=== PATIENT | female | born 1970 | race Two or more races ===

== ENCOUNTER 2021-07-10 11:17 | Outpatient (REF) | payer MEDICAID, SELFPAY ==
--- NOTE | ~2021-07-10 | US_ITS ---
EXAMINATION: US RETROPERITONEAL LIMITED (RENAL ONLY) CLINICAL INFORMATION: History of kidney stone. Left flank pain. COMPARISON: None TECHNIQUE: Real-time imaging of the kidneys. FINDINGS: RIGHT KIDNEY: 10.1 x 4.3 x 6.0 cm (SAG x AP x TRV). The kidney is normal in size, contour, and echogenicity. Renal cortical thickness is normal. No calculi or focal parenchymal lesions. No hydronephrosis. LEFT KIDNEY: 10.0 x 5.4 x 5.2 cm (SAG x AP x TRV). The kidney is normal in size, contour, and echogenicity. Renal cortical thickness is normal. No focal parenchymal lesions or hydronephrosis. Lower pole calculi are identified measuring 0.2 cm. There are 2 stones seen. US/US renal BI IMPRESSION: No hydronephrosis. 0.2 cm left lower pole renal calculi.
== END 2021-07-10 11:18 | disposition home or self-care (01) ==
LOC: HO.HMGCX 11:17
PROVIDERS: PCP Nurse Practitioner Family; Visit Provider Nurse Practitioner Family
DX: N20.0 Calculus of kidney (principal)
CPT/HCPCS: 76775

== ENCOUNTER 2021-08-08 09:45 | Outpatient (REF) | payer MEDICAID, SELFPAY | END 2021-08-08 09:46 | disposition home or self-care (01) | LOC: HO.MAMMO 09:45 | PROVIDERS: Visit Provider Nurse Practitioner Family | DX: Z13.89 Encounter for screening for other disorder (principal) ==

== ENCOUNTER → 2021-08-11 09:16 | Outpatient (REF) | payer MEDICAID, SELFPAY ==
--- NOTE | 2021-08-11 09:30 | CA_ITS ---
Transthoracic Echocardiogram Patient (Last, First, Middle): Nazia Corona, Gender: Female Date of : 1970 Age: 50 Procedure Date: 08/11/2021 Procedure Type: Transthoracic Echocardiogram Location: OP Height: 142.24 cm Weight: 62.6 kg BSA: 1.52 m2 Heart Rate: bpm BP: 152 / 100 mmHg Culturist: VH/CP Referring MD: Jenny Guajardo Symptoms: I10 HTN S06.5X9A TRAUM SUBDR HEM W LOC ,Z98.890 OTHER POST P Study Quality: Fair ECG Rhythm: Sinus Conclusions: - The left ventricular systolic function is mildly decreased. The calculated ejection fraction is 47% by biplane method. - No obvious valvular pathology seen on this study. Findings Left Ventricle Normal left ventricular cavity size. There is normal left ventricular wall thickness. The left ventricular systolic function is mildly decreased. The calculated ejection fraction is 47% by biplane method. There is mild global hypokinesis. E/E prime ratio is <8, consistent with normal filling pressures. Evidence suggests grade I (mild) diastolic dysfunction. Right Ventricle Normal right ventricular cavity size. There is low normal right ventricular systolic function. TAPSE 1.7cm. Atria Both atria are normal in size. Aortic Valve There is a normal trileaflet aortic valve. There is no aortic valve stenosis. There is trace (trivial) aortic valve regurgitation. Mitral Valve The mitral valve appears normal. There is no mitral valve stenosis. Trace to mild regurgitation Pulmonic Valve The pulmonic valve was not well visualized. Tricuspid Valve Normal tricuspid valve structure. There is trace tricuspid valve regurgitation. The pulmonary artery systolic pressure is normal. Great Vessels The aortic annulus, sinuses of valsalva, asc aorta, and aortic arch are normal in size. Venous The inferior vena cava is normal in size and collapses greater than 50% with inspiration. Pericardium/Pleural There is no evidence of pericardial effusion. Prior Study Comparison No prior study available for comparison. Recommendations, Care & Conclusions No obvious valvular pathology seen on this study. Measurements 2D Linear Measurements IVSd: 0.86 0.6-0.9/0.6-1.0 cm LVIDd: 4.99 3.9-5.3/4.2-5.9 cm LVIDd Index: 3.28 2.4-3.2/2.2-3.1 cm/m2 LVIDs: 3.73 2.0-3.6 cm LVPWd: 0.86 0.7-1.1 cm Ao Root: 2.80 2.1-3.5 cm LA Diam: 3.50 2.7-3.8/3.0-4.0 cm LAIDs Index: 2.30 1.5-2.3 cm/m2 LV Mass: 184.83 67-162/88-224 g LV Mass Index: 121.60 43-95/49-115 g/m2 LVOT Diam: 2.00 3.0+(-)1.3 cm 2D Systolic Function EF 4C: 46.30 >55% EF 2C: 48.30 >55% EF BiP: 46.70 >55% Mitral Valve MV Pk E: 0.59 MV PK A: 0.63 MV Decel Time: 266.00 E/A: 0.90 E'Lateral: 8.27 E'Medial: 5.44 E/E' Med: 10.90 E/E' Lat: 7.10 PHT: 78.00 MVA PHT: 2.82 Decel [place]: 2.23 Aortic Valve AoV Pk Jovon: 1.35 AoV Mn Jovon: 1.01 AoV VTI: 0.31 AoV Pk Grad: 7.00 Aov Mn Grad: 4.00 FAUSTO Cont.VTI: 1.59 LVOT LVOT Pk Jovon: 0.73 LVOT Mn Jovon: 0.51 LVOT VTI: 0.16 LVOT Pk Grad: 2.00 LVOT Mn Grad: 1.00 LVOT Diam: 2.00 LVOT Area: 3.14 Diastolic Function MV Pk E: 0.59 MV Pk A: 0.63 E/A: 0.90 E'Medial: 5.44 E/E' Med: 10.90 E' Laterial: 8.27 E/E' Lat: 7.10 Right Ventricle TAPSE (mm): 17.00 TVS' Jovon: 10.00 Tricuspid Valve TR Pk Jovon: 1.14 TR Pk Grad: 5.00 RA Press: 3.00 RVSP: 8.00 Great Vessels Aorta Ao Root-2D: 2.80 2.0-3.7 cm Ao Asc: 3.10 2.1-3.4 cm Ao Arch: 3.00 Updated in Other Vendor System with Status of Final Justin Maddox MD electronically signed on 08/12/2021 11:40:59 AM with status of Final
== END ==
LOC: HO.CARD 09:16
PROVIDERS: Visit Provider Nurse Practitioner Family
DX: I10 Essential (primary) hypertension (principal); S06.5X9D Traumatic subdural hemorrhage with loss of consciousness of unspecified duration, subsequent encounter; Z98.890 Other specified postprocedural states
CPT/HCPCS: 93306

== ENCOUNTER 2021-09-10 09:04 | Outpatient (REF) | payer MEDICAID, SELFPAY ==
--- NOTE | ~2021-09-10 | MM_ITS ---
EXAMINATION: MM SCREENING DIGITAL BREAST TOMOSYNTHESIS, BILATERAL CLINICAL INFORMATION: Screening. Asymptomatic. The lifetime risk of breast cancer based on the Tyrer-Cuzick Model is 8%. COMPARISON: Outside mammography: 07/04/2020, 11/11/2018, 06/08/2017, 05/30/2017 ([facility], [place], [place]). TECHNIQUE: Digital breast tomosynthesis is performed in both the craniocaudal and mediolateral oblique views along with computer-aided detection (CAD). Synthesized 2D images are generated from the tomosynthesis. FINDINGS: There are scattered areas of fibroglandular density (ACR BI-RADS breast composition Category b). There are no significant masses, abnormal calcifications, or other abnormalities. There are scattered calcifications in each breast. There are stable grouped calcifications retroareolar upper outer right breast and mid right breast upper outer quadrants, respectively. The axilla and skin contours are unremarkable. MM/MM tomosynthesis screening BI IMPRESSION: No significant changes from prior outside exams. ASSESSMENT: BI-RADS 2: Benign RECOMMENDATION: Routine annual mammography screening. This patient's information was entered into a reminder system with a target due date for their next mammogram.
== END 2021-09-10 09:05 | disposition home or self-care (01) ==
LOC: HO.MAMMO 09:04
PROVIDERS: Visit Provider Nurse Practitioner Family
DX: Z12.31 Encounter for screening mammogram for malignant neoplasm of breast (principal)
CPT/HCPCS: 77063; 77067

== ENCOUNTER → 2022-03-19 09:08 | Outpatient (BNVA) | payer MEDICAID, SELFPAY | PROVIDERS: PCP Nurse Practitioner Family; Visit Provider Orthopaedic Surgery | DX: R20.0 Anesthesia of skin (principal); R20.2 Paresthesia of skin | CPT/HCPCS: 99202 ==

== ENCOUNTER 2022-07-08 12:51 | Outpatient (REF) | payer MEDICAID, SELFPAY ==
--- NOTE | 2022-07-08 09:00 | EMG_ITS ---
Bilateral median and ulnar motor and sensory studies were performed. Bilateral radial and sensory studies were performed and paraspinal muscles were tested with a needle. 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 MD GURJIT Winter/JASMIN / [id number]
== END 2022-07-08 12:52 | disposition home or self-care (01) ==
LOC: HO.NEURO 12:51
PROVIDERS: Visit Provider Orthopaedic Surgery
DX: R20.0 Anesthesia of skin (principal)
CPT/HCPCS: 95886; 95911

== ENCOUNTER 2022-08-20 07:21 | Outpatient (REF) | payer MEDICAID, SELFPAY ==
--- NOTE | ~2022-08-20 | MM_ITS ---
EXAMINATION: MM DIAGNOSTIC DIGITAL BREAST TOMOSYNTHESIS, BILATERAL US BREAST LIMITED, LEFT CLINICAL INFORMATION: Left breast lump 12-o'clock position. The lifetime risk of breast cancer based on the Tyrer-Cuzick Model is 7.1%. COMPARISON: Mammography: 09/10/2021 and studies dating back to 10/02/2015. TECHNIQUE: Digital breast tomosynthesis was performed in both the craniocaudal and mediolateral oblique views along with computer-aided detection (CAD). Synthesized 2D images were generated from the tomosynthesis. Targeted left breast ultrasound. FINDINGS: The breasts are heterogeneously dense, which may obscure small masses (ACR BI-RADS breast composition Category c). MAMMOGRAPHY: There are no significant masses, abnormal calcifications, or other abnormalities. ULTRASOUND: Targeted ultrasound examination in the 12-o'clock position of the left breast in the region of palpable abnormality demonstrates a homogeneously echogenic region without adjacent edematous change which may represent lipoma or possibly sequela of trauma. No suspicious mass or distal sound shadowing appreciated. MM/MM tomosynthesis diagnostic BI IMPRESSION: 1. No significant mammographic finding. 2. Palpable abnormality of the left breast corresponds to a benign-appearing region as described. ASSESSMENT: BI-RADS 2: Benign RECOMMENDATION: Clinical management and routine mammography. Results were discussed with the patient at time of the visit. This patient's information was entered into a reminder system with a target due date for their next mammogram.
== END 2022-08-20 07:22 | disposition home or self-care (01) ==
LOC: HO.MAMMO 07:21
PROVIDERS: PCP Internal Medicine; Visit Provider Advanced Practice Midwife
DX: N64.4 Mastodynia (principal); N63.42 Unspecified lump in left breast, subareolar
CPT/HCPCS: 76642; 77062; 77066

== ENCOUNTER → 2022-12-01 10:10 | Outpatient (BNVA) | payer MEDICAID, SELFPAY | PROVIDERS: PCP Internal Medicine; Visit Provider Physician Assistant | DX: G56.01 Carpal tunnel syndrome, right upper limb (principal) | CPT/HCPCS: 99212 ==

== ENCOUNTER 2022-12-20 07:37 | Day surgery (SDC) | payer MEDICAID, SELFPAY ==
[2022-12-20 07:47] VITALS: BMI 31.4
--- NOTE | 2022-12-20 10:01 | MHC.SHP ---
Pre-Procedural Eval Section A Date of Service: 12/20/22 The patient is an INPATIENT: No Changes since office visit: No Cold of Flu in the past 2 weeks, No New Medical Problems, No Changes in Medication and No Patient answered all questions The History & Physical has been completed within 30 days and I have reviewed it.: Yes Section B Chief Complaint: Carpal tunnel syndrome, right upper limb Allergies: Allergies Allergy/AdvReac Type Severity Reaction Status Date / Time No Known Allergies Allergy Verified 12/01/22 10:15 Plan I have reviewed the history and physical and performed a pertinent physical examination on my patient. No changes have occurred unless specified. Time Spent With Patient Time: Total time managing care of this patient today ____ minutes.
--- NOTE | 2022-12-20 10:02 | W.PM.OPN ---
Operative Note Operative Note Date of Service: 12/20/22 Narrative: Preop diagnosis: 1. Right Carpal tunnel syndrome Postop diagnosis: same Procedure: 1. Right Carpal tunnel release Surgeon: Sana Potter MD Anesthesia: local block using 1% lidocaine with epinephrine Findings: Thickened transverse carpal ligament. EBL: Less than 5 mL Specimens: None Complications: None Disposition: Brought to recovery room in stable condition Plan: Follow-up for 10-14 days for wound check and suture removal Indications: The patient is 52 years old, with right carpal tunnel syndrome that has been unresponsive to nonoperative management. The risks and benefits of operative treatment including but not limited to risk of damage to blood vessels, nerves, tendons, infection, persistent pain, persistent symptoms, or possible need for additional surgery were discussed with the patient and the patient wishes to proceed with surgery. Procedure: Once consent was obtained a local block was performed using a combination of 1% lidocaine with epinephrine. The patient was then brought back to the operating suite and placed on the operative table in supine position. The right upper extremity was prepped and draped in a standard surgical fashion. Once assured that we had a good block, a 2.0 cm longitudinal incision was made centered over the carpal tunnel. The incision was made through the skin to the subcutaneous tissues using a #15 blade. Dissection was made down to the level of the transverse carpal ligament with care being taken to protect the palmar cutaneous nerve. Once the transverse carpal ligament was clearly visualized, a longitudinal incision was made in the transverse carpal ligament 1st using a #15 blade, then using tenotomy scissors under direct visualization. Care was taken to look for and protect the motor branch of the median nerve when seen in this area. Once satisfied with our carpal tunnel release the wound was copiously irrigated with normal saline and hemostasis was obtained with a brief period of local pressure. The skin edges were reapproximated with some 5.0 nylon suture material and a sterile dressing was applied. The patient appears to have tolerated the procedure well and with no complications. All digits were well vascularized at the conclusion of the case.
[2022-12-20 10:20] VITALS: BP 142/82; PULSE 78; RESP 16; O2SAT 97
== END 2022-12-20 10:30 | disposition home or self-care (01) ==
PROVIDERS: Visit Provider Orthopaedic Surgery
PROC: (CPT 64721; principal; 2022-12-20 09:00)
DX: G56.01 Carpal tunnel syndrome, right upper limb (principal)
CPT/HCPCS: 64721; J0171; J2795

== ENCOUNTER → 2022-12-21 14:58 | Outpatient (BNVA) | payer MEDICAID, SELFPAY | PROVIDERS: Visit Provider Nurse Practitioner Family | DX: N20.0 Calculus of kidney (principal) | CPT/HCPCS: 99202 ==

== ENCOUNTER 2023-01-04 13:30 | Outpatient (REF) | payer MEDICAID, SELFPAY ==
--- NOTE | ~2023-01-04 | US_ITS ---
EXAMINATION: US RETROPERITONEAL LIMITED (RENAL ONLY) CLINICAL INFORMATION: Calculus of kidney. COMPARISON: Renal ultrasound 07/10/2021. TECHNIQUE: Real-time imaging of the kidneys. FINDINGS: RIGHT KIDNEY: 10.5 x 5.0 x 6.3 cm (SAG x AP x TRV). The kidney is normal in size, contour, and echogenicity. Renal cortical thickness is normal. No calculi or focal parenchymal lesions. No hydronephrosis. LEFT KIDNEY: 10.3 x 5.7 x 5.0 cm (SAG x AP x TRV). The kidney is normal in size, contour, and echogenicity. Renal cortical thickness is normal. No focal parenchymal lesions or hydronephrosis. 5 mm nonobstructing midpole renal stone from prior and 4 mm nonobstructing lower pole renal stone previously 2 mm. US/US renal BI IMPRESSION: Nonobstructing left renal stones increased in size and number measuring up to 5 mm.
== END 2023-01-04 13:31 | disposition home or self-care (01) ==
LOC: HO.US 13:30
PROVIDERS: PCP Registered Nurse; Visit Provider Nurse Practitioner Family
DX: N20.0 Calculus of kidney (principal)
CPT/HCPCS: 76775; 99212

== ENCOUNTER → 2023-01-31 11:41 | Outpatient (BNVA) | payer MEDICAID, SELFPAY | PROVIDERS: PCP Registered Nurse; Visit Provider Nurse Practitioner Family ==

== ENCOUNTER → 2023-03-18 10:57 | Outpatient (BNVA) | payer MEDICAID, SELFPAY | PROVIDERS: Visit Provider Orthopaedic Surgery | DX: G56.02 Carpal tunnel syndrome, left upper limb (principal) | CPT/HCPCS: 99212 ==

== ENCOUNTER 2023-03-24 07:53 | Day surgery (SDC) | payer MEDICAID, SELFPAY ==
[2023-03-24 08:19] VITALS: BP 142/88; PULSE 82; RESP 20; TEMP 36.6; O2SAT 97
[2023-03-24 08:22] VITALS: BMI 32.5
[2023-03-24 11:21] VITALS: BP 148/90; PULSE 74; RESP 18; O2SAT 97
[2023-03-24 11:31] VITALS: BP 148/90; PULSE 74; RESP 18; O2SAT 97
--- NOTE | 2023-03-24 11:36 | MHC.SHP ---
Pre-Procedural Eval Section A Date of Service: 03/24/23 The patient is an INPATIENT: No Changes since office visit: No Cold of Flu in the past 2 weeks, No New Medical Problems, No Changes in Medication and No Patient answered all questions The History & Physical has been completed within 30 days and I have reviewed it.: Yes Section B Chief Complaint: Carpal tunnel syndrome, left upper limb Allergies: Allergies Allergy/AdvReac Type Severity Reaction Status Date / Time No Known Allergies Allergy Verified 03/18/23 11:08 Plan I have reviewed the history and physical and performed a pertinent physical examination on my patient. No changes have occurred unless specified. Time Spent With Patient Time: Total time managing care of this patient today ____ minutes.
--- NOTE | 2023-03-24 11:36 | W.PM.OPN ---
Operative Note Operative Note Date of Service: 03/24/23 Narrative: Preop diagnosis: 1. Left Carpal tunnel syndrome Postop diagnosis: same Procedure: 1. left Carpal tunnel release Surgeon: Sana Potter MD Anesthesia: local block using 1% lidocaine with epinephrine Findings: Thickened transverse carpal ligament. EBL: Less than 5 mL Specimens: None Complications: None Disposition: Brought to recovery room in stable condition Plan: Follow-up for 10-14 days for wound check and suture removal Indications: The patient is 52 years old, with left carpal tunnel syndrome that has been unresponsive to nonoperative management. The risks and benefits of operative treatment including but not limited to risk of damage to blood vessels, nerves, tendons, infection, persistent pain, persistent symptoms, or possible need for additional surgery were discussed with the patient and the patient wishes to proceed with surgery. Procedure: Once consent was obtained a local block was performed using a combination of 1% lidocaine with epinephrine. The patient was then brought back to the operating suite and placed on the operative table in supine position. The left upper extremity was prepped and draped in a standard surgical fashion. Once assured that we had a good block, a 2.0 cm longitudinal incision was made centered over the carpal tunnel. The incision was made through the skin to the subcutaneous tissues using a #15 blade. Dissection was made down to the level of the transverse carpal ligament with care being taken to protect the palmar cutaneous nerve. Once the transverse carpal ligament was clearly visualized, a longitudinal incision was made in the transverse carpal ligament 1st using a #15 blade, then using tenotomy scissors under direct visualization. Care was taken to look for and protect the motor branch of the median nerve when seen in this area. Once satisfied with our carpal tunnel release the wound was copiously irrigated with normal saline and hemostasis was obtained with a brief period of local pressure. The skin edges were reapproximated with some 5.0 nylon suture material and a sterile dressing was applied. The patient appears to have tolerated the procedure well and with no complications. All digits were well vascularized at the conclusion of the case.
== END 2023-03-24 11:39 | disposition home or self-care (01) ==
PROVIDERS: PCP Registered Nurse; Visit Provider Orthopaedic Surgery
PROC: (CPT 64721; principal; 2023-03-24 09:40)
DX: G56.02 Carpal tunnel syndrome, left upper limb (principal); R20.0 Anesthesia of skin; I10 Essential (primary) hypertension
CPT/HCPCS: 64721; J0171

== ENCOUNTER → 2023-03-24 07:53 | Outpatient (BNV) | payer MEDICAID, SELFPAY | PROVIDERS: PCP Registered Nurse; Visit Provider Orthopaedic Surgery | DX: G56.02 Carpal tunnel syndrome, left upper limb (principal) | CPT/HCPCS: 64721 ==

== ENCOUNTER 2023-04-05 12:06 | Outpatient (AMB) | payer MEDICAID, SELFPAY ==
--- NOTE | 2023-04-05 12:08 | A.OFFVIS_ITS ---
Intake Vital Signs 04/05/23 12:09 Height 4 ft 8 in Weight 145 lb BMI 32.5 Intake Visit Reasons: PO LT CTR 03/24/23AR Intake Note: Nazia 52 yr old right hand dominant female presents today for a post operative left CTR, 03/24/23 AR. Patient reports numbness has improved, states able to sleep at night. She has itchiness near incision. Allergies No Known Allergies Allergy (Verified 04/05/23 12:12) HPI PO LT CTR 03/24/23AR HPI Details Nazia is a 52 year old right hand dominant Chinese speaking woman who presents S/P left carpal tunnel release, DOS: 03/24/23. She says she is doing well and her sensation has improved. 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 Sutures removed and Steri-Strips applied She can make a fist and extend all her digits Sensation is intact to the tips of all digits Cap refill is brisk Psych Appearance: grossly normal Affect: normal affect Attitude: cooperative Assessment & Plan Assessment & Plan (1) Carpal tunnel syndrome of left wrist: Code(s): G56.02 - Carpal tunnel syndrome, left upper limb Plan Assessment & Plan: 1. Left Carpal tunnel syndrome, S/P release Pre-operatively with dense numbness Now with normal sensation and good resolution of her nighttime symptoms The patient appears to be doing well post-operatively I educated her about the post-operative course I discussed activity modifications, she is to lift nothing heavier than a cellphone for the next two weeks She will perform gentle ROM exercises at home She should avoid any underwater activities for the next 5 days She should gently massage about the incision site to reduce the risk of hypersensitivity She can follow up prn 2. Right Carpal tunnel syndrome, S/P release DOS: 12/20/22 Preoperatively with dense numbness in the median nerve distribution. Postoperatively: Normal sensation Scribed for Sana Potter MD by Rikki Juan, medical case manager, on 04/05/23 at 12:15 PM, EST. Coding Level of Care Code Global (65393) Diagnoses Carpal tunnel syndrome of left wrist G56.02
[2023-04-05 12:09] VITALS: BMI 32.5
== END 2023-04-05 12:14 | disposition home or self-care (01) ==
PROVIDERS: PCP Registered Nurse; Visit Provider Orthopaedic Surgery
DX: G56.02 Carpal tunnel syndrome, left upper limb (principal)
CPT/HCPCS: 99024

== ENCOUNTER → 2023-04-05 12:06 | Outpatient (BNVA) | payer MEDICAID, SELFPAY | PROVIDERS: PCP Registered Nurse; Visit Provider Orthopaedic Surgery ==

== ENCOUNTER 2023-04-20 15:11 | Outpatient (REF) | payer OTHER, SELFPAY ==
--- NOTE | ~2023-04-20 | XR_ITS ---
EXAMINATION: XR ABDOMEN KUB CLINICAL INDICATION: Calculus of kidney COMPARISON: Renal ultrasound 01/10/2023 TECHNIQUE: AP view of the abdomen. FINDINGS: The bowel gas pattern is normal with no evidence of ileus or obstruction. There is a moderate amount of stool within the ascending and transverse colon significantly obscuring the right kidney and the midportion of the left kidney. No renal calcifications are identified. There are a few small calcifications in the left side of the pelvis which likely represent phleboliths. The bones are intact. XR/XR KUB IMPRESSION: 1. No evidence of renal calculus. 2. Moderate amount of stool in the colon obscuring the kidneys.
== END 2023-04-20 15:12 | disposition home or self-care (01) ==
LOC: HO.XRAY 15:11
PROVIDERS: PCP Registered Nurse; Visit Provider Nurse Practitioner Family
DX: N20.0 Calculus of kidney (principal)
CPT/HCPCS: 74018

== ENCOUNTER 2023-05-04 11:57 | Outpatient (AMB) | payer OTHER, SELFPAY ==
--- NOTE | 2023-05-04 12:04 | MHC.OFFVIS ---
Intake Intake Visit Reasons: Discuss surgery/ KUB(set) Intake Note: Patient is present for tele visit follow up Nephrolithiasis/KUB X-ray (imaging 04/20/23) Urology Medications: Vitamin B6 Blood Thinner: none Procedures Analyst Required: Yes Procedures Analyst Name: Radha Allergies No Known Allergies Allergy (Verified 05/04/23 21:42) Medication List - Last Reconciled 05/04/23 by BASILIA Mejia amlodipine 5 mg PO DAILY carvedilol 25 mg PO DAILY hydrochlorothiazide 12.5 mg PO DAILY losartan 100 mg PO DAILY oxycodone-acetaminophen 5-325 mg 1 tab PO Q6H PRN HPI HPI Comments History of Present Illness Details Nazia is a pleasant 52-year-old Bhutanese-speaking patient of Dr. Max. She has a past medical history of hypertension. She is being followed up on today via telehealth. Of note, patient was previously seen approximately 3 months for nephrolithiasis at which time renal ultrasound results were reviewed with the patient and recommendations were made for six-month follow-up however patient has been experiencing left-sided flank pain and a KUB was ordered for further assessment evaluation. These results were reviewed with the patient today. No evidence of renal calculus. Moderate amount of stool in the colon obscuring the kidneys. However renal ultrasound from 02/01 noting right kidney with no lesions, hydronephrosis, or calculi present. Left kidney with nonobstructing left renal stones increased in size and number measuring up to 5 mm. In discussion with the patient today she reports ongoing intermittent left-sided flank pain. She reports pain is intermittent however feels she is experiencing it more often than prior. She reports when experiencing this pain it is sharp and extremely bothersome. She denies urinary urgency, urinary frequency, incontinence, nocturia, hematuria, dysuria, foul smelling urine, changes to urinary stream, fever, and or chills. When asked patient reports she does not drink adequate amount of water daily. Discussed and stressed the importance of drinking adequate amount of fluid daily. Discussed obtaining CT KUB for further assessment evaluation. Patient agreeable. 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 Review of Systems Const All systems reviewed & are unremarkable except as noted in HPI and below Reports as per HPI Eyes Reports no additional complaints ENT Reports no additional complaints Card Reports as per HPI Resp Reports no additional complaints GI Reports no additional complaints Reports as per HPI Musc Reports no additional complaints Neuro Reports as per HPI Psych Reports no additional complaints Endo Reports no additional complaints Jayme/Lymph Reports no additional complaints Aller/Immun Reports no additional complaints Physical Exam Const General: cooperative Orientation/consciousness: patient oriented x3 Resp Effort & Inspection: able to speak in complete sentences Neuro General: patient oriented x3 Psych Speech and movement: Clear speech present Attitude: cooperative Thought process: Normal thought process present Thought content: Normal thought content present Insight: Good insight present (Psych) Judgement: Good judgement present (Psych) Results Reviewed Results Reviewed: Date of Service: 04/20/23 EXAMINATION: XR ABDOMEN KUB FINDINGS: The bowel gas pattern is normal with no evidence of ileus or obstruction. There is a moderate amount of stool within the ascending and transverse colon significantly obscuring the right kidney and the midportion of the left kidney. No renal calcifications are identified. There are a few small calcifications in the left side of the pelvis which likely represent phleboliths. The bones are intact. IMPRESSION: 1.? No evidence of renal calculus. ? 2. Moderate amount of stool in the colon obscuring the kidneys. Assessment & Plan Assessment & Plan (1) Nephrolithiasis: Code(s): N20.0 - Calculus of kidney (2) Flank pain: Code(s): R10.9 - Unspecified abdominal pain Plan Recent KUB results reviewed with the patient today; as noted above. Patient reporting intermittent left-sided flank pain; as noted above. Will obtain CT KUB for further assess evaluation. Patient denies any bothersome lower urinary tract symptoms. Discussed seeking emergency room care if symptoms worsen, experiencing hematuria, fever, and or chills. Discussed, educated, and encouraged on the importance of drinking plenty of water daily. Discussed as needed Tylenol Motrin OTC Follow-up in 1-2 weeks with imaging to be completed prior; or sooner with any issues, concerns, and or questions. Orders: Orders CT kidney stone Today N20.0 - Calculus of kidney, R10.9 - Unspecified abdominal pain Patient Instructions: The patient had an opportunity to ask questions regarding the treatment plan. All questions were answered. Physical exam, labs, and imaging were discussed and reviewed in detail. As well as risks, benefits, and discussion of treatment choices. No major barriers to understanding were identified. The patient expressed understanding and agreement with the above treatment plan. The patient was made aware they should contact our office by phone for worsening of their current condition, the appearance of new symptoms, or with any questions or concerns. Compliance is encouraged with any medications and follow up testing that is ordered. It is a privilege to be allowed the opportunity to participate in? your urological care.? Again, if you have any questions or concerns If you have any questions or concerns please do not hesitate to contact me. The office is [phone]. This note is constructed using voice recognition software. While every effort has been made to ensure accuracy overcoiler errors may have been included. Yours sincerely, BASILIA Mejia Telehealth Telehealth Location of provider rendering services: practice address Location of patient: address on file Patient Identification confirmed using: Name, : Yes Telehealth method: voice only Patient verbally consented to treatment: Yes Patient verbally consented to billing insurance company: Yes Patient informed of any privacy concerns related to visit: Yes Minutes spent on Phone/Video with Pt.: 15 Coding Level of Care Code Tele Est Pt Level 3 (42722) Diagnoses Nephrolithiasis N20.0 Flank pain R10.9
== END 2023-05-04 13:26 | disposition home or self-care (01) ==
LOC: HO.HUSH 11:57
PROVIDERS: PCP Registered Nurse; Visit Provider Nurse Practitioner Family
DX: N20.0 Calculus of kidney (principal); R10.9 Unspecified abdominal pain
CPT/HCPCS: 99213

== ENCOUNTER → 2023-05-04 11:57 | Outpatient (BNVA) | payer OTHER, SELFPAY | PROVIDERS: PCP Registered Nurse; Visit Provider Nurse Practitioner Family ==

== ENCOUNTER 2023-06-01 08:32 | Outpatient (REF) | payer OTHER, SELFPAY ==
--- NOTE | ~2023-06-01 | CT_ITS ---
EXAMINATION: CT ABDOMEN AND PELVIS WITHOUT CONTRAST CLINICAL INFORMATION: Renal stone. COMPARISON: Renal ultrasound dated 01/04/2023 and abdominal radiograph dated 04/20/2023. TECHNIQUE: Multidetector volumetric imaging was performed of the abdomen and pelvis without IV contrast. Sagittal and coronal reformatted images were obtained on the technologist's workstation. This CT examination was performed using dose optimization techniques as appropriate, variously including the following: *Automated exposure control *Adjustment of mA and/or kV according to patient size (this includes techniques or standardized protocols for targeted exams where dose is matched to indication/reason for exam; i.e. extremities or head) *Use of iterative reconstruction technique DLP: 454 mGy-cm FINDINGS: LUNG BASES: No airspace consolidation. LIVER, GALLBLADDER, AND BILIARY TREE: Normal size and shape. Parenchymal hypoattenuation, consistent with steatosis. No focal hepatic lesion. No intra or extrahepatic biliary ductal dilatation. The gallbladder is absent. PANCREAS: Unremarkable. SPLEEN: Unremarkable. ADRENAL GLANDS: Unremarkable. KIDNEYS AND URETERS: Normal size, shape, and attenuation. No hydronephrosis, hydroureter, or calculi. No perinephric stranding. BLADDER: Unremarkable. GASTROINTESTINAL TRACT: Small, sliding hiatal hernia. Scattered sigmoid diverticulosis without evidence of acute diverticulitis. No bowel wall thickening or inflammatory change. No small or large bowel obstruction. The appendix is unremarkable. PERITONEAL CAVITY: No intra-abdominal free air, free fluid, mass, or organized fluid collection. ABDOMINAL WALL: No significant abdominal wall hernia. LYMPH NODES: No significant lymphadenopathy. VASCULAR: No abdominal aortic dilatation. The IVC is unremarkable. PELVIC VISCERA: The uterus and adnexa are unremarkable. OSSEOUS STRUCTURES: Moderate degenerative disc disease with bilateral facet arthropathy at L5-S1. No acute osseous abnormality. CT/CT kidney stone IMPRESSION: No hydronephrosis or nephrolithiasis. Unremarkable urinary bladder. Small, sliding hiatal hernia. Sigmoid diverticulosis without evidence of acute diverticulitis. No small or large bowel obstruction. Unremarkable appendix. Hepatic steatosis. No hepatic parenchymal lesion or biliary ductal dilatation. No intra-abdominal mass, lymphadenopathy, or ascites. Moderate degenerative disc disease with bilateral facet arthropathy at L5-S1.
== END 2023-06-01 08:33 | disposition home or self-care (01) ==
LOC: HO.CT 08:32
PROVIDERS: PCP Registered Nurse; Visit Provider Nurse Practitioner Family
DX: N20.0 Calculus of kidney (principal); R10.9 Unspecified abdominal pain
CPT/HCPCS: 74176

== ENCOUNTER 2023-06-08 08:12 | Outpatient (REF) | payer OTHER, SELFPAY ==
[2023-06-08 12:05] LABS: Cholesterol 254 mg/dL (<200); HDL Cholesterol 50 mg/dL (>40); LDL Cholesterol Calculated 164 mg/dL (<100); Triglycerides 200 mg/dL (<150)
[2023-06-08 12:23] LABS: Estimated Average Glucose 114 mg/dL; Hemoglobin A1c % 5.6 % (<6.0)
[2023-06-12 22:54] LABS: VITAMIN D (1,25 OH) D3 59 pg/mL; Vit D (1,25-Dihydroxy) Total 59 pg/mL (18-72); Vitamin D (1,25 OH) D2 <8 pg/mL
== END 2023-06-08 08:13 | disposition home or self-care (01) ==
LOC: HO.HHCL 08:12
PROVIDERS: Visit Provider Registered Nurse
DX: Z00.00 Encounter for general adult medical examination without abnormal findings (principal); R73.03 Prediabetes; E78.2 Mixed hyperlipidemia
CPT/HCPCS: 36415; 80061; 82652; 83036

== ENCOUNTER 2023-06-28 14:30 | Outpatient (AMB) | payer OTHER, SELFPAY ==
--- NOTE | 2023-06-28 14:30 | A.OFFVIS_ITS ---
Intake Intake Visit Reasons: CT result- follow up Intake Note: Patient is present for tele visit follow up Nephrolithiasis/KUB CT (imaging 06/01/23) Urology Medications: none Blood Thinner: none Weekend Receptionist Required: Yes Weekend Receptionist Name: Emeka Donovan No Known Allergies Allergy (Verified 06/28/23 14:49) Medication List - Last Reconciled 06/28/23 by BASILIA Mejia amlodipine 5 mg PO DAILY carvedilol 25 mg PO DAILY hydrochlorothiazide 12.5 mg PO DAILY losartan 100 mg PO DAILY oxycodone-acetaminophen 5-325 mg 1 tab PO Q6H PRN HPI HPI Comments History of Present Illness Details Nazia is a pleasant 52-year-old Kiswahili-speaking patient of Dr. Max. She has a past medical history of hypertension. She is being followed up on today via telehealth. Of note, patient was previously seen approximately 6 weeks ago at which time a CT KUB was ordered for further assessment evaluation. These results reviewed with the patient today. The kidneys and ureters are normal in size shape and attenuation. No hydronephrosis, hydroureter, or calculi seen. No perinephric stranding. The bladder is unremarkable. She reports to be doing and feeling well. She reports pain has since subsided and offers no issues or concerns at this time. She denies urinary urgency, urinary frequency, incontinen ce, nocturia, hematuria, dysuria, foul smelling urine, changes to urinary stream, fever, and or chills. When asked patient reports she does not drink adequate amount of water daily. Discussed and stressed the importance of drinking adequate amount of fluid daily. She otherwise offers no other issues or concerns at this time. 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 Review of Systems Const All systems reviewed & are unremarkable except as noted in HPI and below Reports as per HPI Eyes Reports no additional complaints ENT Reports no additional complaints Card Reports as per HPI Resp Reports no additional complaints GI Reports no additional complaints Reports as per HPI Musc Reports no additional complaints Neuro Reports as per HPI Psych Reports no additional complaints Endo Reports no additional complaints Jayme/Lymph Reports no additional complaints Aller/Immun Reports no additional complaints Physical Exam Const General: cooperative Orientation/consciousness: patient oriented x3 Resp Effort & Inspection: able to speak in complete sentences Neuro General: patient oriented x3 Psych Speech and movement: Clear speech present Attitude: cooperative Thought process: Normal thought process present Thought content: Normal thought content present Insight: Good insight present (Psych) Judgement: Good judgement present (Psych) Results Reviewed Results Reviewed: Ordering Physician: Ruthie Mcguire EXAMINATION: CT ABDOMEN AND PELVIS WITHOUT CONTRAST FINDINGS: LUNG BASES: No airspace consolidation. LIVER, GALLBLADDER, AND BILIARY TREE: Normal size and shape. Parenchymal hypoattenuation, consistent with steatosis. No focal hepatic lesion. No intra or extrahepatic biliary ductal dilatation. The gallbladder is absent. PANCREAS: Unremarkable. SPLEEN: Unremarkable. ADRENAL GLANDS: Unremarkable. KIDNEYS AND URETERS: Normal size, shape, and attenuation. No hydronephrosis, hydroureter, or calculi. No perinephric stranding. BLADDER: Unremarkable. GASTROINTESTINAL TRACT: Small, sliding hiatal hernia. Scattered sigmoid diverticulosis without evidence of acute diverticulitis. No bowel wall thickening or inflammatory change. No small or large bowel obstruction. The appendix is unremarkable. PERITONEAL CAVITY: No intra-abdominal free air, free fluid, mass, or organized fluid collection. ABDOMINAL WALL: No significant abdominal wall hernia. LYMPH NODES: No significant lymphadenopathy. VASCULAR: No abdominal aortic dilatation. The IVC is unremarkable. PELVIC VISCERA: The uterus and adnexa are unremarkable. OSSEOUS STRUCTURES: Moderate degenerative disc disease with bilateral facet arthropathy at L5-S1. No acute osseous abnormality. IMPRESSION: No hydronephrosis or nephrolithiasis. Unremarkable urinary bladder. Small, sliding hiatal hernia. Sigmoid diverticulosis without evidence of acute diverticulitis. No small or large bowel obstruction. Unremarkable appendix. Hepatic steatosis. No hepatic parenchymal lesion or biliary ductal dilatation. No intra-abdominal mass, lymphadenopathy, or ascites. Moderate degenerative disc disease with bilateral facet arthropathy at L5-S1. Assessment & Plan Assessment & Plan (1) Nephrolithiasis: Code(s): N20.0 - Calculus of kidney (2) Flank pain: Code(s): R10.9 - Unspecified abdominal pain Plan Recent CT KUB results reviewed with the patient today; as noted above. Patient denies any issues or concerns at this time. Patient reports to be feeling and doing much better Educated, encouraged, and stressed the importance of drinking plenty of fluid daily. Renal ultrasound in 6 months. Follow-up in 6 months with imaging to be completed prior; or sooner with any issues, concerns, and or questions. Orders: Orders US renal BI 6 Months N20.0 - Calculus of kidney Patient Instructions: The patient had an opportunity to ask questions regarding the treatment plan. All questions were answered. Physical exam, labs, and imaging were discussed and reviewed in detail. As well as risks, benefits, and discussion of treatment choices. No major barriers to understanding were identified. The patient expressed understanding and agreement with the above treatment plan. The patient was made aware they should contact our office by phone for worsening of their current condition, the appearance of new symptoms, or with any questions or concerns. Compliance is encouraged with any medications and follow up testing that is ordered. It is a privilege to be allowed the opportunity to participate in? your urological care.? Again, if you have any questions or concerns If you have any questions or concerns please do not hesitate to contact me. The office is [phone]. This note is constructed using voice recognition software. While every effort has been made to ensure accuracy supervisor modern languages errors may have been included. Yours sincerely, JULIEN MejiaMARY ST[facility] Telehealth Telehealth Location of provider rendering services: practice address Location of patient: address on file Patient Identification confirmed using: Name, : Yes Telehealth method: voice only Patient verbally consented to treatment: Yes Patient verbally consented to billing insurance company: Yes Patient informed of any privacy concerns related to visit: Yes Minutes spent on Phone/Video with Pt.: 15 Coding Level of Care Code Tele Est Pt Level 2 (55602) Diagnoses Nephrolithiasis N20.0 Flank pain R10.9 Time Spent (min) 15
== END 2023-06-28 15:10 | disposition home or self-care (01) ==
LOC: HO.HUSH 14:30
PROVIDERS: PCP Registered Nurse; Visit Provider Nurse Practitioner Family
DX: N20.0 Calculus of kidney (principal); R10.9 Unspecified abdominal pain
CPT/HCPCS: 99212

== ENCOUNTER → 2023-06-28 14:30 | Outpatient (BNVA) | payer OTHER, SELFPAY | PROVIDERS: PCP Registered Nurse; Visit Provider Nurse Practitioner Family ==

== ENCOUNTER 2023-07-07 11:23 | Outpatient (AMB) | payer OTHER, SELFPAY ==
--- NOTE | 2023-07-07 11:30 | A.OFFVIS_ITS ---
Intake Vital Signs 07/07/23 11:31 Height 4 ft 8 in Weight 145 lb BMI 32.5 BP 131/85 Blood Pressure Location Rt brachial Position Sitting Pulse 85 Intake Visit Reasons: Right breast pain, red, yellow drainage Intake Note: Patient referred for redness, swelling on Rt breast. Patient had breast reduction on 06-15-23 in [facility]. Reports stitch looks infected. C/o yellowish discharge and tenderness to touch. Medical Staffing Coordinator Required: No Accompanied by: Self / Same As Patient Allergies No Known Allergies Allergy (Verified 07/07/23 11:33) HPI HPI Comments History of Present Illness Details Patient presents here status post undergoing bilateral reduction mammoplasty in [facility]. She developed a superficial infection underneath the right breast and presents here for further evaluation. She has had some drainage from this area. She is currently on antibiotics. Contralateral left side is within normal limits. 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 At the 6 o'clock position of the incision of the right breast , in inframammary area there is a superficial skin breakdown with mild erythema and purulence. Wound was probed and is superficial with no deep abscess. Contralateral left side is healing uneventfully Assessment & Plan Assessment & Plan (1) Postoperative infection of breast incision: Code(s): T81.49XA - Infection following a procedure, other surgical site, initial encounter Plan Patient is continue current therapy in more of dressing changes, she may shower each day and apply dressing. She is to complete her antibiotic course. Patient is seemingly proximal weeks time for follow-up or p.r.n.. All questions were answered. Coding Level of Care Code New Pt Level 4 (37256) Diagnoses Postoperative infection of breast incision T81.49XA
[2023-07-07 11:31] VITALS: BP 131/85; PULSE 85; BMI 32.5
== END 2023-07-07 14:57 | disposition home or self-care (01) ==
PROVIDERS: PCP Registered Nurse; Referring Provider Emergency Medicine; Visit Provider Surgery
DX: T81.49XA Infection following a procedure, other surgical site, initial encounter (principal)
CPT/HCPCS: 99203

== ENCOUNTER → 2023-07-07 11:23 | Outpatient (BNVA) | payer OTHER, SELFPAY | PROVIDERS: PCP Registered Nurse; Referring Provider Emergency Medicine; Visit Provider Surgery ==

== ENCOUNTER 2023-07-12 10:25 | Outpatient (AMB) | payer OTHER, SELFPAY ==
[2023-07-12 10:30] VITALS: BP 128/77; PULSE 88; BMI 32.7
--- NOTE | 2023-07-12 10:30 | MHC.OFFVIS ---
Intake Vital Signs 07/12/23 10:30 Height 4 ft 8 in Weight 146 lb BMI 32.7 BP 128/77 Blood Pressure Location Rt brachial Position Sitting Pulse 88 Intake Visit Reasons: Breast discharge, redness spreading Intake Note: Patient here c/o rt lat breast tenderness. Noticed yellowish discharge on gauze this morning. Currently taking Doxycycline course. Senior Applications Developer Required: No Accompanied by: Self / Same As Patient Allergies No Known Allergies Allergy (Verified 07/12/23 10:32) HPI HPI Comments History of Present Illness Details Patient presents for follow-up. Status post reduction bilateral breast mammoplasty. The left breast her as having no issues. The 06:00 o'clock area the right breast has persistent drainage. 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 Right breast at the inferior suture line has opened up with serosanguineous drainage. Wound was probed again and is superficial with no underlying collection or abscess. Assessment & Plan Assessment & Plan (1) Postoperative infection of breast incision: Code(s): T81.49XA - Infection following a procedure, other surgical site, initial encounter Plan Arrangements were made for formal wound care dressings through [employer] in the office. Patient will see me as directed or p.r.n.. Coding Level of Care Code Est Pt Level 4 (17441) Diagnoses Postoperative infection of breast incision T81.49XA
== END 2023-07-12 10:46 | disposition home or self-care (01) ==
PROVIDERS: PCP Registered Nurse; Visit Provider Surgery
DX: T81.49XA Infection following a procedure, other surgical site, initial encounter (principal)
CPT/HCPCS: 99214

== ENCOUNTER → 2023-07-12 10:25 | Outpatient (BNVA) | payer OTHER, SELFPAY | PROVIDERS: PCP Registered Nurse; Visit Provider Surgery | DX: T81.49XD Infection following a procedure, other surgical site, subsequent encounter (principal) | CPT/HCPCS: 99212 ==

== ENCOUNTER 2023-07-25 | Outpatient (REF) | payer OTHER, SELFPAY | END 2023-07-25 00:01 | disposition home or self-care (01) | LOC: CF | PROVIDERS: PCP Registered Nurse; Visit Provider Surgery | DX: N20.0 Calculus of kidney (principal); N64.4 Mastodynia; T81.49XA Infection following a procedure, other surgical site, initial encounter | CPT/HCPCS: 99212 ==

== ENCOUNTER 2023-07-25 13:54 | Outpatient (AMB) | payer OTHER, SELFPAY ==
--- NOTE | 2023-07-25 14:25 | A.OFFVIS_ITS ---
<Statement entered by Kranthi Mejia MD - 08/12/23 15:20> This is Dr. Hayward's patient. Intake Vital Signs 07/25/23 14:26 Height 4 ft 8 in Weight 146 lb BMI 32.7 BP 127/91 H Blood Pressure Location Rt brachial Position Sitting Pulse 101 H Intake Visit Reasons: oozing after breast surgery Intake Note: Patient here still concerned with breast tenderness and oozing yellowish discharge. VNA concerned with drainage. Reports incisions healing well. Marine Habitat Resource Specialist Required: Yes Accompanied by: Self / Same As Patient Allergies No Known Allergies Allergy (Verified 07/25/23 14:26) HPI HPI Comments History of Present Illness Details Patient presents for follow-up. She has minimal drainage from the left breast. Right breast is still draining. 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 Right breast demonstrates persistent drainage the inferior aspect of the incision. This was partially opened and sutures being extruded were removed. Wound was cleaned and dressing applied. Well tolerated. Assessment & Plan Assessment & Plan (1) Postoperative infection of breast incision: Code(s): T81.49XA - Infection following a procedure, other surgical site, initial encounter Plan Patient is continue local therapy in VNA services and will see me in approximately one point five weeks time or p.r.n.. Coding Level of Care Code Est Pt Level 3 (88935) Diagnoses Postoperative infection of breast incision T81.49XA
[2023-07-25 14:26] VITALS: BP 127/91; PULSE 101; BMI 32.7
== END 2023-07-25 14:52 | disposition home or self-care (01) ==
PROVIDERS: PCP Registered Nurse; Visit Provider Surgery
DX: T81.49XA Infection following a procedure, other surgical site, initial encounter (principal)
CPT/HCPCS: 99213

== ENCOUNTER 2023-08-02 12:44 | Outpatient (AMB) | payer OTHER, SELFPAY ==
[2023-08-02 13:15] VITALS: BP 138/95; PULSE 83; BMI 32.3
--- NOTE | 2023-08-02 13:15 | A.OFFVIS_ITS ---
Intake Vital Signs 08/02/23 13:15 Height 4 ft 8 in Weight 144 lb BMI 32.3 BP 138/95 H Blood Pressure Location Rt brachial Position Sitting Pulse 83 Intake Visit Reasons: 1wk f/u oozing after breast surgery Intake Note: Patient here to f/u breast oozing. Reports improving since started doxycycline. Director Of Gift Planning Required: Yes Accompanied by: Self / Same As Patient Allergies No Known Allergies Allergy (Verified 08/02/23 13:16) HPI HPI Comments History of Present Illness Details Patient presents for follow-up. Bilateral breast wounds are essentially status quo. 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 Festering persistent granulating tissue the right it breast 6 o'clock position and similar small area in the left breast 6 o'clock position. No gross evidence abscess. Or c ellulitis. Assessment & Plan Assessment & Plan (1) Postoperative infection of breast incision: Code(s): T81.49XA - Infection following a procedure, other surgical site, initial encounter Plan I had Dr. Spence look at these wounds were 2nd opinion. Current consensus of opinions continue local therapy. Patient will see me approximately 2 weeks time. If there is essentially status quo situation again, formal or wound exploration and debridement will be undertaken. All questions were answered. Patient will see me as directed or p.r.n.. Coding Level of Care Code Est Pt Level 4 (61955) Diagnoses Postoperative infection of breast incision T81.49XA
== END 2023-08-02 13:43 | disposition home or self-care (01) ==
PROVIDERS: PCP Registered Nurse; Visit Provider Surgery
DX: T81.49XA Infection following a procedure, other surgical site, initial encounter (principal)
CPT/HCPCS: 99214

== ENCOUNTER → 2023-08-02 12:44 | Outpatient (BNVA) | payer OTHER, SELFPAY | PROVIDERS: PCP Registered Nurse; Visit Provider Surgery | DX: T81.49XD Infection following a procedure, other surgical site, subsequent encounter (principal); Z79.2 Long term (current) use of antibiotics | CPT/HCPCS: 99212 ==

== ENCOUNTER 2023-08-16 14:41 | Outpatient (AMB) | payer OTHER, SELFPAY ==
[2023-08-16 14:42] VITALS: BP 138/94; PULSE 91; BMI 32.7
--- NOTE | 2023-08-16 14:42 | A.OFFVIS_ITS ---
Intake Vital Signs 08/16/23 14:42 Height 4 ft 8 in Weight 146 lb BMI 32.7 BP 138/94 H Blood Pressure Location Rt brachial Position Sitting Pulse 91 Intake Visit Reasons: F/u breast abscess Intake Note: This patient presents for a follow-up assessment for breast abscess. Patient c/o; reports drainage, reports noticed color of discharge slightly darker than before. Convex Grinder Operator Required: Yes Convex Grinder Operator Name: Carlos Manuel Information Interpreted: non-clinical & clinical Accompanied by: Self / Same As Patient Allergies No Known Allergies Allergy (Verified 08/16/23 14:50) Medication List - Last Reconciled 08/16/23 by Antonio Hayward MD amlodipine 5 mg PO DAILY carvedilol 25 mg PO DAILY doxycycline hyclate 100 mg PO BID hydrochlorothiazide 12.5 mg PO DAILY losartan 100 mg PO DAILY oxycodone-acetaminophen 5-325 mg 1 tab PO Q6H PRN HPI HPI Comments History of Present Illness Details Patient presents for follow-up status post infections from breast reduction surgery. She states her wounds are improving. 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 Each was probed with silver nitrate and Q-tips and cleared of any underlying purulence. Dressings were applied. Well tolerated. Assessment & Plan Assessment & Plan (1) Postoperative infection of breast incision: Code(s): T81.49XA - Infection following a procedure, other surgical site, initial encounter Plan Patient is continue local wound therapy and will see me in approximately 2 weeks time or p.r.n.. All questions were answered Coding Level of Care Code Est Pt Level 4 (26039) Diagnoses Postoperative infection of breast incision T81.49XA
== END 2023-08-16 15:00 | disposition home or self-care (01) ==
PROVIDERS: PCP Registered Nurse; Visit Provider Surgery
DX: T81.49XA Infection following a procedure, other surgical site, initial encounter (principal)
CPT/HCPCS: 99214

== ENCOUNTER → 2023-08-16 14:41 | Outpatient (BNVA) | payer OTHER, SELFPAY | PROVIDERS: PCP Registered Nurse; Visit Provider Surgery | DX: T81.49XD Infection following a procedure, other surgical site, subsequent encounter (principal) | CPT/HCPCS: 99212 ==

== ENCOUNTER 2023-08-25 12:04 | Outpatient (REF) | payer OTHER, SELFPAY ==
--- NOTE | ~2023-08-25 | US_ITS ---
EXAMINATION: US RETROPERITONEAL LIMITED (RENAL ONLY) CLINICAL INFORMATION: Calculus of kidney. COMPARISON: CT abdomen and pelvis 06/01/2023. X-ray KUB 04/20/2023. Renal ultrasound 01/04/2023 and 07/10/2021. TECHNIQUE: Real-time imaging of the kidneys. FINDINGS: RIGHT KIDNEY: 10.1 x 4.9 x 6.2 cm (SAG x AP x TRV). The kidney is normal in size, contour, and echogenicity. Renal cortical thickness is normal. There is a 2 mm mid renal echogenic focus with twinkle artifact consistent with a nonobstructing stone. However, no calculi were seen on the 06/01/2023 CT scan. No focal parenchymal lesions or hydronephrosis. LEFT KIDNEY: 10.0 x 5.0 x 5.5 cm (SAG x AP x TRV). The kidney is normal in size, contour, and echogenicity. Renal cortical thickness is normal. There is a 2 mm echogenic focus in the mid to lower kidney with twinkle artifact consistent with a nonobstructing stone. However, no calculi were seen on the 06/01/2023 CT scan. No focal parenchymal lesions or hydronephrosis. US/US renal BI IMPRESSION: Question of bilateral small punctate nonobstructing renal calculi. No renal calculi were seen on the recent CT scan.
== END 2023-08-25 12:05 | disposition home or self-care (01) ==
LOC: HO.US 12:04
PROVIDERS: PCP Registered Nurse; Visit Provider Nurse Practitioner Family
DX: N20.0 Calculus of kidney (principal)
CPT/HCPCS: 76775

== ENCOUNTER 2023-08-30 14:16 | Outpatient (AMB) | payer OTHER, SELFPAY ==
[2023-08-30 14:21] VITALS: BP 138/88; PULSE 89; BMI 32.3
--- NOTE | 2023-08-30 14:21 | A.OFFVIS_ITS ---
Intake Vital Signs 08/30/23 14:21 Height 4 ft 8 in Weight 144 lb BMI 32.3 BP 138/88 Blood Pressure Location Rt brachial Position Sitting Pulse 89 Intake Visit Reasons: Breast abscess, 2 wk follow up Intake Note: Patient here for 2wk f/u breast abscess. Patient reports Rt breast is finally healing. Patient c/o new blister that formed on Lt breast. Blister was oozing clear discharge. Combining Machine Operator Required: Yes Accompanied by: Self / Same As Patient Allergies No Known Allergies Allergy (Verified 08/30/23 14:23) HPI HPI Comments History of Present Illness Details Patient presents for follow-up; bilateral breast infection status [place]. 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 Very superficial layer of granulating tissue. Right breast still has significant depth. Tract was cauterized with silver nitrate and dressing applied. Well tolerated. Assessment & Plan Assessment & Plan (1) Postoperative infection of breast incision: Code(s): T81.49XA - Infection following a procedure, other surgical site, initial encounter Plan Patient is to continue local therapy, and will see me as directed or p.r.n.. all questions answered Coding Level of Care Code Est Pt Level 4 (89022) Diagnoses Postoperative infection of breast incision T81.49XA
== END 2023-08-30 14:29 | disposition home or self-care (01) ==
PROVIDERS: PCP Registered Nurse; Visit Provider Surgery
DX: T81.49XA Infection following a procedure, other surgical site, initial encounter (principal)
CPT/HCPCS: 17250; 99214

== ENCOUNTER → 2023-08-30 14:16 | Outpatient (BNVA) | payer OTHER, SELFPAY | PROVIDERS: PCP Registered Nurse; Visit Provider Surgery | DX: T81.49XD Infection following a procedure, other surgical site, subsequent encounter (principal) | CPT/HCPCS: 17250; 99212 ==

== ENCOUNTER 2023-09-01 13:37 | Outpatient (REF) | payer OTHER, SELFPAY | END 2023-09-01 13:38 | disposition home or self-care (01) | LOC: HO.LAB 13:37 | PROVIDERS: PCP Registered Nurse; Visit Provider Surgery | DX: T81.49XA Infection following a procedure, other surgical site, initial encounter (principal) | CPT/HCPCS: 87070; 87205; 99211 ==

== ENCOUNTER → 2023-09-02 10:55 | Outpatient (BNVA) | payer OTHER, SELFPAY | PROVIDERS: PCP Registered Nurse; Visit Provider Surgery | DX: T81.49XA Infection following a procedure, other surgical site, initial encounter (principal) | CPT/HCPCS: 99211 ==

== ENCOUNTER 2023-09-13 13:47 | Outpatient (AMB) | payer OTHER, SELFPAY ==
[2023-09-13 13:50] VITALS: BP 124/72; PULSE 72
--- NOTE | 2023-09-13 13:50 | A.OFFVIS_ITS ---
Intake Vital Signs 09/13/23 13:50 Weight 144 lb BP 124/72 Blood Pressure Location Rt brachial Position Sitting Pulse 72 Intake Visit Reasons: Breast abscess, 2 wk follow up Intake Note: Patient here for 2wk f/u Rt breast abscess. Reports it is finally healing. Patient c/o: reports breasts are healing well. Denies oozing, pain. Project Manager Retail Required: Yes Project Manager Retail Name: Anisa RUIZ Accompanied by: Self / Same As Patient Allergies No Known Allergies Allergy (Verified 09/13/23 13:52) HPI HPI Comments History of Present Illness Details Patient's for follow-up. Status post removal of retained sponge from her [place] surgery was undertaken recently. At present, patient has no wound issues or complaints. Wound is completely healed. 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 Assessment & Plan Assessment & Plan (1) Postoperative infection of breast incision: Code(s): T81.49XA - Infection following a procedure, other surgical site, initial encounter Plan Patient has been given local instructions, and will follow-up p.r.n. Coding Level of Care Code Est Pt Level 4 (53759) Diagnoses Postoperative infection of breast incision T81.49XA
== END 2023-09-13 13:54 | disposition home or self-care (01) ==
PROVIDERS: PCP Registered Nurse; Visit Provider Surgery
DX: T81.49XA Infection following a procedure, other surgical site, initial encounter (principal)
CPT/HCPCS: 99213

== ENCOUNTER → 2023-09-13 13:47 | Outpatient (BNVA) | payer OTHER, SELFPAY | PROVIDERS: PCP Registered Nurse; Visit Provider Surgery | DX: T81.49XD Infection following a procedure, other surgical site, subsequent encounter (principal) | CPT/HCPCS: 99212 ==

== ENCOUNTER 2023-09-20 | Outpatient (REF) | payer OTHER, SELFPAY ==
[2023-09-27 04:09] LABS: HPV 16 RNA NOT DETECTED (NOT DETECTED); HPV mRNA E6/E7 rflx Detected (Not Detected)
== END 2023-09-20 00:01 ==
LOC: HO.CHCLNP
PROVIDERS: Visit Provider Advanced Practice Midwife
DX: Z12.4 Encounter for screening for malignant neoplasm of cervix (principal); Z11.51 Encounter for screening for human papillomavirus (HPV)
CPT/HCPCS: 87624; 87625; 88142

== ENCOUNTER 2023-10-03 15:45 | Outpatient (REF) | payer OTHER, SELFPAY | END 2023-10-03 15:46 | disposition home or self-care (01) | LOC: HO.LNP 15:45 | PROVIDERS: PCP Registered Nurse; Visit Provider Obstetrics & Gynecology | DX: Z32.02 Encounter for pregnancy test, result negative (principal); B97.7 Papillomavirus as the cause of diseases classified elsewhere | CPT/HCPCS: 57454; 81025; 88300; 88305 ==

== ENCOUNTER 2023-10-03 15:45 | Outpatient (AMB) | payer OTHER, SELFPAY ==
[2023-10-03 15:55] VITALS: BP 110/76; BMI 32.3
--- NOTE | 2023-10-03 15:55 | A.OFFVIS_ITS ---
Intake Vital Signs 10/03/23 15:55 Height 4 ft 8 in Weight 144 lb BMI 32.3 BP 110/76 Intake Visit Reasons: HIGH RISK HPV/PCP REFERRAL Industrial Gas Servicer Supervisor Required: Yes Industrial Gas Servicer Supervisor Language: Secondary Market Manager Name: Claudia Information Interpreted: non-clinical & clinical Assembly Member: Assembly Member Present (Claudia) Allergies No Known Allergies Allergy (Verified 10/03/23 15:56) HPI HPI Comments History of Present Illness Details Presenting referred from PCP regarding normal Pap smear/HPV E6/E7 positive. 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 Reproductive History Menstrual Total pregnancies: 2 Full term: 2 Number of Living Children: 2 Physical Exam Vital Signs: Last Vital Signs BP 110/76 10/03/23 15:55 BMI result Body Mass Index 32.3 Office Procedures Colposcopy Before the procedure was started discussed with the patient the procedure, alternatives & all the risks associated with the procedure (bleeding, infection, injury to vagina, bladder, vessels, possible need for transfusion with all its risks) then patient signed the consent Pap smear = negative Pap/HPV positive Urine test done in the office was negative Speculum inserted, acetic acid used Colposcopy done Transformation zone seen, acetowhite lesions identified at 3 o?clock, cervical biopsies taken from 3 o?clock, ECC done afterwards. Vaginoscopy of the upper vagina showed no evidence of any aceto-white lesions Monsel solution used for hemostasis. The patient tolerated well . At the end the patient was instructed to call if temp>100.4, abdominal pain, n/v, bleeding; The patient was given the following instructions: nothing per vagina, no intercourse or bath tub use. All questions answered the patient verbalized understanding. Instructed the patient to make an appointment in 2 weeks for follow-up This note was generated with a voice recognition program. Some errors may have b een overlooked during the review of this note. Sometimes these errors may affect the content or meaning of a given sentence. [id number] of cervix including upper vagina with biopsy and ECC Procedure code (CPT) selection complete Results AMB Test Urine AMB Test Urine Negative Last Edit by JOSEPH Frazier on 10/03/23 16:02 Results Reviewed Results Reviewed: Laboratory Last Values [facility] Clinic Negative 10/03/23 16:01 Assessment & Plan Assessment & Plan (1) HPV in female: Code(s): B97.7 - Papillomavirus as the cause of diseases classified elsewhere Plan: Colposcopy done, see procedure note Orders: Orders AMB HCG Urine Test Today Z32.02 - Encounter for test, result negative AMB Colposcopy Today B97.7 - Papillomavirus as the cause of diseases classified elsewhere Coding Level of Care Code Procedure Only Diagnoses HPV in female B97.7 CPT Codes Colposcopy - CPT: 19990-Gekoyzrks of cervix including upper vagina with biopsy a nd ECC ([id number])
== END 2023-10-03 16:19 | disposition home or self-care (01) ==
LOC: HO.HWS 15:45
PROVIDERS: PCP Registered Nurse; Visit Provider Obstetrics & Gynecology
DX: R87.810 Cervical high risk human papillomavirus (HPV) DNA test positive (principal); Z32.02 Encounter for pregnancy test, result negative
CPT/HCPCS: 57454

== ENCOUNTER 2023-12-12 08:53 | Outpatient (REF) | payer OTHER, SELFPAY ==
--- NOTE | ~2023-12-12 | US_ITS ---
EXAMINATION: US RETROPERITONEAL LIMITED (RENAL ONLY) CLINICAL INFORMATION: Renal calculus. COMPARISON: Renal ultrasound 08/25/2023. CT abdomen and pelvis 06/01/2023. X-ray abdomen KUB 04/20/2023. Renal ultrasound 01/04/2023. TECHNIQUE: Ultrasound along with color Doppler imaging and spectral analysis was performed of the kidneys. Limited visualization due to bowel gas. FINDINGS: RIGHT KIDNEY: 10.0 x 4.5 x 5.6 cm (SAG x AP x TRV). 2 mm midpole calculus. No hydronephrosis. Renal cortical thickness is normal. Limited visualization. LEFT KIDNEY: 9.8 x 4.8 x 3.9 cm (SAG x AP x TRV). 2 mm lower pole calculus. Borderline mild left hydronephrosis. Tiny 2 mm midpole and lower pole echogenic foci may represent calcified vessels or nonobstructive calculi. Renal cortical thickness is normal. Limited visualization. Bilateral ureteral jets demonstrated on limited views of the bladder. Bladder is suboptimally distended, limiting evaluation. US/US renal BI IMPRESSION: Bilateral nephrolithiasis. Borderline mild left hydronephrosis.
== END 2023-12-12 08:54 | disposition home or self-care (01) ==
LOC: HO.US 08:53
PROVIDERS: PCP Registered Nurse; Visit Provider Nurse Practitioner Family
DX: N20.0 Calculus of kidney (principal)
CPT/HCPCS: 76775

== ENCOUNTER 2023-12-29 15:16 | Outpatient (REF) | payer OTHER, SELFPAY | END 2023-12-29 15:17 | disposition home or self-care (01) | LOC: HO.LNP 15:16 | PROVIDERS: PCP Registered Nurse; Visit Provider Obstetrics & Gynecology | DX: B97.7 Papillomavirus as the cause of diseases classified elsewhere (principal); Z71.2 Person consulting for explanation of examination or test findings | CPT/HCPCS: 88305; 99212 ==

== ENCOUNTER 2023-12-29 15:16 | Outpatient (AMB) | payer OTHER, SELFPAY ==
[2023-12-29 15:30] VITALS: BP 114/72; BMI 32.1
--- NOTE | 2023-12-29 15:30 | A.OFFVIS_ITS ---
Vital Signs 12/29/23 15:30 Height 4 ft 8 in Weight 143 lb 4.807 oz BMI 32.1 BP 114/72 Intake Visit Reasons: Colpo Results/Need ECC Zinc Miner Required: Yes Zinc Miner Language: Service Center Specialist Name: Claudia RUIZ Information Interpreted: non-clinical & clinical Health Services Administrator: Health Services Administrator Present (Claudia RUIZ) Accompanied by: Self / Same As Patient Allergies No Known Allergies Allergy (Verified 12/29/23 15:37) Post menopausal: Yes HPI Comments Details: Presenting post colpo for follow-up. The patient is doing well with no compl aints. The pathology showed the following: A. Endocervix, curettage: No tissue present for evaluation. B. Cervix, 3:00, biopsy: Squamous and endocervical glandular mucosa; negative for dysplasia. 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 [employer] Review of Systems Const All systems reviewed & are unremarkable except as noted in HPI and below Reports as per HPI and Reports no additional complaints GI Reports no additional complaints Reports no additional complaints Physical Exam Vital Signs: Last Vital Signs BP 114/72 12/29/23 15:30 BMI result Body Mass Index 32.1 Assessment & Plan Assessment & Plan (1) HPV in female: Code(s): B97.7 - Papillomavirus as the cause of diseases classified elsewhere Category: Medical Plan: Discussed with the patient the pathology results of the colposcopy biopsies & endocervical curettage ( negative, ECC no tissues resident for evaluation). Discussed with the patient the sensitivity specificity, positive and negative predictive value in detecting cervical cancer in addition discussed the regression, persistence and progression rates. ECC repeated, if negative, Recommended co-testing in 12 months, if cytology and or HPV are abnormal will proceed was colposcopy biopsy and endocervical curettage. Instructions given to the patient to schedule a co test appointment in 1 year. All questions answered the patient verbalized understanding.
== END 2023-12-29 15:50 | disposition home or self-care (01) ==
LOC: HO.HWS 15:16
PROVIDERS: PCP Registered Nurse; Visit Provider Obstetrics & Gynecology
DX: R87.810 Cervical high risk human papillomavirus (HPV) DNA test positive (principal)
CPT/HCPCS: 99213

== ENCOUNTER 2024-03-05 07:45 | Outpatient (AMB) | payer OTHER, SELFPAY ==
--- NOTE | 2024-03-05 08:03 | A.OFFVIS_ITS ---
Intake Visit Reasons: Repeat ECC Manager Commission Required: Yes Manager Commission Language: Biofuels Product Development Manager Services: Manager Commission Present Manager Commission Name: Claudia RUIZ Information Interpreted: non-clinical & clinical Gas Fitter: Gas Fitter Present (Claudia RUIZ) Accompanied by: Self / Same As Patient Allergies No Known Allergies Allergy (Verified 03/05/24 08:18) Post menopausal: Yes HPI Comments Details: Presenting for repeat ECC. Last ECC pathology showed no tissue present for eval uation. 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 We thoroughly discussed the procedure itself, including its details, alternatives, and all associated risks. This included but not limited to the following complications such as bleeding, infection, and injury to the vagina, bladder, and vessels, as well as the potential need for transfusion with all its associated risks. Subsequently, the patient sign the consent. Pap smear result: HPV positive Procedure: During the procedure, the following steps were performed: A speculum was inserted, and acetic acid was applied. Endocervical curettage (ECC) was done. Hemostasis was achieved using Monsel solution, and the patient tolerated the procedure well. Post-Procedure Instructions: The patient was advised to promptly contact the office or the after hours answering service or go to the emergency room if experiencing a temperature exceeding 100.4?F, abdominal pain, nausea/vomiting, or bleeding. Additionally, the patient was instructed to abstain from vaginal intercourse and bathtub use. The patient confirmed understanding of these instructions. Discharge Instructions: The patient was instructed to schedule a follow-up appointment in 2 weeks for further evaluation and management. Please note that this note was generated using a voice recognition program, and errors may have occurred during dump grounds checker. Coding Level of Care Code Est Pt Level 3 (87629) Diagnoses HPV in female B97.7
== END 2024-03-05 09:56 | disposition home or self-care (01) ==
PROVIDERS: PCP Registered Nurse; Visit Provider Obstetrics & Gynecology
DX: R87.810 Cervical high risk human papillomavirus (HPV) DNA test positive (principal)
CPT/HCPCS: 99213

== ENCOUNTER 2024-03-05 07:45 | Outpatient (REF) | payer OTHER, SELFPAY | END 2024-03-05 07:46 | disposition home or self-care (01) | LOC: HO.LNP 07:45 | PROVIDERS: PCP Registered Nurse; Visit Provider Obstetrics & Gynecology | DX: B97.7 Papillomavirus as the cause of diseases classified elsewhere (principal) | CPT/HCPCS: 88305; 99212 ==

== ENCOUNTER 2024-03-26 13:51 | Outpatient (AMB) | payer OTHER, SELFPAY ==
--- NOTE | 2024-03-26 13:51 | A.OFFVIS_ITS ---
Intake Visit Reasons: ECC results Allergies No Known Allergies Allergy (Verified 03/05/24 08:18) HPI Comments Details: Presenting for follow-up after ECC. Doing well with no complaints. The pathology showed the following: Endocervix, curettage: Benign endocervical glandular and squamous epithelium; negative for dysplasia. 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 Review of Systems Const All systems reviewed & are unremarkable except as noted in HPI and below Reports as per HPI and Reports no additional complaints GI Reports no additional complaints Reports no additional complaints Telehealth Telehealth Telehealth Platform: Telephone Location of provider rendering services: practice address Location of patient: address on file Patient Identification confirmed using: Name, : Yes Telehealth method: voice only Patient verbally consented to treatment: Yes Patient verbally consented to billing insurance company: Yes Patient informed of any privacy concerns related to visit: Yes Assessment & Plan Assessment & Plan (1) HPV in female: Code(s): B97.7 - Papillomavirus as the cause of diseases classified elsewhere Category: Medical Plan: Discussed with the patient the pathology results of the colposcopy biopsies & endocervical curettage ( negative). Discussed with the patient the sensitivity specificity, positive and negative predictive value in detecting cervical cancer in addition discussed the regression, persistence and progression rates. Recommended co-testing in 12 months, if cytology and or HPV are abnormal will proceed was colposcopy biopsy and endocervical curettage. Instructions given to the patient to schedule a co test appointment in 1 year. All questions answered the patient verbalized understanding. I spent a total of 20 minutes reviewing the chart, talking to the patient via phone and documenting in the medical record. Coding Level of Care Code Tele Est Pt Level 1 (84310) Diagnoses HPV in female B97.7
== END 2024-03-26 14:51 | disposition home or self-care (01) ==
LOC: HO.HWS 13:51
PROVIDERS: PCP Registered Nurse; Visit Provider Obstetrics & Gynecology
DX: R87.810 Cervical high risk human papillomavirus (HPV) DNA test positive (principal)
CPT/HCPCS: 99213

== ENCOUNTER → 2024-03-26 13:51 | Outpatient (BNVA) | payer OTHER, SELFPAY | PROVIDERS: PCP Registered Nurse; Visit Provider Obstetrics & Gynecology ==

== ENCOUNTER 2024-03-29 12:32 | Outpatient (REF) | payer OTHER, SELFPAY ==
--- NOTE | ~2024-03-29 | XR_ITS ---
EXAMINATION: XR LUMBOSACRAL SPINE CLINICAL INFORMATION: Chronic bilateral lower leg pain. COMPARISON: CT dated 06/01/2023. TECHNIQUE: Three views of the lumbosacral spine. FINDINGS: Khrixror-xb-egkdam degenerative disc disease at L5-S1 is characterized by loss of intervertebral disc height with endplate osteophytes and vacuum phenomenon. There is moderate associated facet arthropathy at this level. Intervertebral discs are otherwise well preserved. No fracture or malalignment. No spondylolisthesis. Vertebral body heights are normal. SI joints are unremarkable. XR/XR lumbar spine 2-3V IMPRESSION: Szsfebdt-jw-qewezj degenerative disc disease and facet arthropathy at L5-S1.
== END 2024-03-29 12:33 | disposition home or self-care (01) ==
LOC: HO.XRAY 12:32
PROVIDERS: PCP Registered Nurse; Visit Provider Registered Nurse
DX: M54.50 Low back pain, unspecified (principal); G89.29 Other chronic pain
CPT/HCPCS: 72100

== ENCOUNTER 2024-07-04 11:00 | Outpatient (RCR) | payer MEDICAID, SELFPAY ==
--- NOTE | 2024-06-04 11:02 | MHC.PT.EP ---
[facility] [place] [facility] [place] [facility] [place] Office [address] [phone] F: [phone] F: [phone] F: [phone] F: [phone] Physical Therapy Plan of Care Date of Evaluation: 06/04/24 Date of Surgery: Diagnosis: lumbar degenerative disc disease Assessment: Patient is a 53 year old R handed female who presents with s/s consistent with lumbar degenerative disc disease, low back pain. 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 Patient past medical history includes HTN and possible history of disc herniation. Current impairments include pain, posture, ROM, strength, activity tolerance and functional mobility. Functional limitations include decreased ability to walk, stand, transfer, negotiate stairs, squat, bend and lift. Patient is motivated with good rehab potential. Skilled PT will address impairments and functional limitations in order to achieve goals. Frequency and Duration: The patient will be seen 2x/week for 5 weeks Short Term Goals: I with HEP - 2 weeks AROM rotation 100% pain free - 3 weeks TTP absent - 3 weeks Prison Goals: hip strength 4+/5 grossly - 5 weeks Able to walk > 1.5 hours without increased pain - 5 weeks Oswestry 10% or better - 5 weeks Treatment Plan: Modalities to reduce pain, spasms and effusion. Manual therapy to restore motion and function. Therapeutic exercise to improve strength and flexibility. Neuromuscular re-education for posture and balance. Therapeutic activities to return to functional activities of daily living. Electronically signed by: Jorge Jimenez, PT Please sign and return to therapist. Thank you for your referral.
--- NOTE | 2024-11-30 07:42 | MHC.PT.DC ---
[facility] [place] Office [place] Office [place] Office [address] Cong Barton [address] [phone] F: [phone] F: [phone] F: [phone] F: [phone] Physical Therapy Discharge Report Diagnosis: lumbar degenerative disc disease Date of Surgery: Date of Evaluation: 06/04/24 Date of Discharge: 08/02/24 Treatments to Date: 5 Cancellations to Date: No Shows to Date: Discharge Status: Independent with HEP Patient Elected to Stop Discharge Summary: 07/04; Progressed hip exs with nly c/o fatigue. No pain after RX. 06/27; Pt has improved alignment. Pt tissue reduced density. ITB tender with rolling. No c/o pain with exs. 06/20; Pt had tenderness with rolling Relief after manual RX. L ant inonomate rot. L.E equal after MET. Pt progressed with ROM And stretching. no adverse reactions. limited compliance with HEP which was encouraged today. Electronically signed by: Jorge Jimenez PT Please sign and return to therapist. Thank you for your referral.
== END 2024-11-30 07:43 | disposition home or self-care (01) ==
LOC: HO.PTCHIC 11:00
PROVIDERS: PCP Registered Nurse; Visit Provider Registered Nurse
DX: M51.369 Other intervertebral disc degeneration, lumbar region without mention of lumbar back pain or lower extremity pain (principal)
CPT/HCPCS: 97110; 97140; 97162

== ENCOUNTER 2024-07-05 16:04 | Emergency (ER) | payer MEDICAID, SELFPAY ==
--- NOTE | ~2024-07-05 | XR_ITS ---
EXAMINATION: XR ANKLE, LEFT CLINICAL INFORMATION: Fall. COMPARISON: None available. TECHNIQUE: AP, lateral, and mortise views of the left ankle. FINDINGS: No acute fracture or dislocation. Nonspecific diffuse soft tissue swelling. No unexpected radiopaque foreign bodies. XR/XR ankle LT min 3V IMPRESSION: No acute fracture or malalignment. Nonspecific soft tissue swelling. Electronically signed by: Vikki Leon MD 07/05/2024 05:37 PM EDT
[2024-07-05 16:10] VITALS: BP 134/86; PULSE 90; O2SAT 97
[2024-07-05 16:12] VITALS: BP 142/87; PULSE 84; RESP 18; TEMP 36.5; O2SAT 98; BMI 34.3
--- NOTE | 2024-07-05 16:12 | ED.GENADULT ---
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 Patient states that while walking down the steps of her back porch, she missed the last step causing her left ankle to twist inward. Reports immediate pain to the outside of her left ankle with noted swelling. She did not take any [id number] pain medications for this prior to arrival. She has been ambulating on the extremity since she twisted the ankle. Denies head strike or LOC. Not on anticoagulation. Denies numbness, tingling, or weakness of the left lower extremity. Related Data Home Medications ?Medication ?Instructions ?Recorded ?Confirmed carvedilol 25 mg tablet 25 mg PO DAILY 03/19/22 12/20/22 hydrochlorothiazide 12.5 mg tablet 12.5 mg PO DAILY 03/19/22 12/20/22 losartan 100 mg tablet 100 mg PO DAILY 03/19/22 12/20/22 amlodipine 5 mg tablet 5 mg PO DAILY 01/31/23 Allergies Allergy/AdvReac Type Severity Reaction Status Date / Time No Known Allergies Allergy Verified 07/05/24 16:14 Review of Systems Review of Systems: Constitutional: No fever, chills, fatigue, night sweats, weight changes ENT/Mouth: No ear pain, hearing loss, nasal congestion, sinus pain, rhinorrhea, sore throat Eyes: No eye pain, swelling, redness, vision changes, discharge Cardio: No chest pain, palpitations, COLEMAN, orthopnea, peripheral edema Pulm: No SOB, cough, sputum, wheezing, dyspnea, hemoptysis GI: No nausea, vomiting, hematemesis, abdominal pain, diarrhea, constipation, hematochezia, melena : No irregular bleeding, dysuria, frequency, urgency, hesitancy, hematuria, flank pain, urinary flow changes, urinary incontinence or retention MSK: No back pain, neck pain, joint pain, myalgias, +left ankle pain/ swelling Skin: No lesions, rashes Neuro: No weakness, numbness, paresthesias, LOC, dizziness, headache Psych: No anxiety/panic, depression, SI/HI, AH/VH All other systems reviewed and are negative. [facility] Past Medical History Attestation statement: The following information was validated with the patient. 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 Skin: Warm, dry, intact. No rashes or lesions. Head: Normocephalic, atraumatic. EENT: Hearing is intact b/l. Conjunctiva clear. PERRLA. EOM intact. Moist mucous membranes.? Neck: Supple without LAD Cardiac: Chest wall symmetric. RRR. Lungs: Normal respiratory effort without accessory muscle use. CTA bilaterally. Back: No midline spinous or paraspinal tenderness. No step off deformity. Ext: +minimal swelling noted to lateral aspect of left ankle without noted deformity or overlying skin changes. Tender to palpation without palpable fluctuance or deformity. No crepitus. 2+ PT/DP pulse intact. Full ROM intact to left ankle and all toes. Ambulating with slight limping gait. Neuro: AOx3. Normal speech. Sensation intact to light touch. NV intact distally. Reflexes 2+ bilaterally. Ambulating with steady gait. Psych: Appropriate mood and affect. Responds appropriately to questions. Const General: cooperative, healthy appearing, comfortable and no acute distress Orientation/consciousness: patient oriented x3 Limitations: no limitations HENOH Head: Yes normal to inspection, Yes normocephalic and Yes atraumatic Eyes General: appearance normal, both eyes and all related structures Conjunctivae: conjunctivae normal Sclerae: sclerae normal Pupils: Equal, round and reactive pupils present Neck Neck: Yes normal visual inspection and Yes full ROM Resp Effort & Inspection: normal respiratory effort Auscultation: clear to auscultation bilaterally Cardio Rate: regular rate Rhythm: regular rhythm Skin General skin exam: no rashes or lesions noted Neuro General: patient oriented x3, gait normal and moves all extremities Cranial nerves: Yes Equal, round and reactive pupils present Extrem General: Yes normal to inspection Course Course Course Narrative: RME, this is a rapid medical exam performed by Gurpreet Polo please refer to primary provider for complete H&P- 53-year-old female presents for evaluation of left ankle pain after tripping and falling prior to arrival. Plan for x-rays. Denies any head strike or loss of consciousness Reevaluation(s) Reevaluation #1: 1911 -- x-ray left ankle without obvious fracture. There is minimal soft tissue swelling, correlating with my physical exam findings. Patient likely sprained her ankle. Treated with Toradol for pain control. Reinaldo wrap applied for compression. Educated on RICE therapy. advised to take tylenol/ motrin at home. Patient has remained stable throughout ED visit today. Discussed worrisome signs and symptoms and when to return to the ED. All questions answered at this time. Patient is agreeable with disposition and stable for discharge. Medical Decision Making Medical Decision Making [facility] Narrative: 53-year-old Australian-speaking female presents to the ED today for evaluation of left ankle pain status post mechanical fall prior to arrival. Patient hypertensive, vitals otherwise WNL. She is nontoxic-appearing and in no acute distress. On exam, there is minimal swelling noted to lateral aspect of left ankle without noted deformity or overlying skin changes. Tender to palpation without palpable fluctuance or deformity. No crepitus. 2+ PT/DP pulse intact. Full ROM intact to left ankle and all toes. Ambulating with slight limping gait. Differential diagnosis includes contusion, fracture, MSK sprain/strain. Unlikely neurovascular compromise, compartment syndrome, threat to limb. Presentation not consistent with gout, pseudogout, Lyme arthritis or septic joint, DVT, Achilles tendon rupture, plantar fasciitis. Plan for imaging, pain control and re-evaluation. Differential Diagnosis Differential Diagnoses: The differential diagnosis associated with the presentation includes as above. Independent Interpretation I performed an independent interpretation of an: Plain X-Ray Interpretation: I have reviewed xray and agree with radiologist's interpretation. Radiology Impression Discussion of test interpretation with radiology: I have reviewed the radiologist's reading. External Record Review External record reviewed: Inpatient record, Office record, Outpatient record, Prior outpatient labs, Prior outpatient radiology, Primary care record and Outside ED record Prescription Management I considered prescription management with: Pain Medication Critical Care Time Critical Care Time Critical Care Time: No Discharge Plan Discharge Clinical Impression: Left ankle sprain Patient Disposition: Home, Self-Care Instructions: Sprain (ED), How to Use an Elastic Bandage (ED), R.I.C.E. Treatment (ED) Additional Instructions: You have been evaluated in the Emergency Department today for left ankle pain after fall today. Your evaluation did not reveal fracture. You likely sprained your ankle. Utilize RICE therapy at home. Rest, ice, compress, elevate the left ankle. I recommend you take 600mg ibuprofen every 6 hours or tylenol 650mg every 6 hours as needed for pain. If needed, you can alternate these medications so that you take one medication every 3 hours. For example, at noon take ibuprofen, then at 3pm take tylenol, then at 6pm take ibuprofen.? Please follow-up with PCP as needed. You have been provided with a referral. Call them to make an appointment, they will not call you. Return to the Emergency Department if you experience worsening pain, numbness, tingling, change of color in your toes, or any other concerning symptoms. Prescriptions: No Action carvedilol 25 mg tablet 25 mg PO DAILY hydrochlorothiazide 12.5 mg tablet 12.5 mg PO DAILY losartan 100 mg tablet 100 mg PO DAILY amlodipine 5 mg tablet 5 mg PO DAILY Print Language: Australian
[2024-07-05 18:36] VITALS: BP 137/97; PULSE 85; RESP 15; TEMP 37.2; O2SAT 96
[2024-07-05] MEDS: Ketorolac Tromethamine 30 MG/ML VIAL IM (19:20)
[2024-07-05 19:25] VITALS: BP 137/97; PULSE 85; RESP 15; TEMP 37.2; O2SAT 96
== END 2024-07-05 19:26 | disposition home or self-care (01) ==
PROVIDERS: Emergency Provider Emergency Medicine
DX: S93.402A Sprain of unspecified ligament of left ankle, initial encounter (principal); R26.89 Other abnormalities of gait and mobility; W10.9XXA Fall (on) (from) unspecified stairs and steps, initial encounter; Y93.89 Activity, other specified; Y92.89 Other specified places as the place of occurrence of the external cause; Y99.8 Other external cause status; Z79.899 Other long term (current) drug therapy
CPT/HCPCS: 73610; 96372; 99283; 99284; J1885

== ENCOUNTER 2024-10-11 08:16 | Outpatient (REF) | payer MEDICAID, SELFPAY ==
--- OUTSIDE RECORDS SUMMARY | 2024-10-11 11:09 | XMS_ITS | Encounter Summary ---
Author Organization [employer] Address [address] [place] [id number] Care Team Providers Care Contract Technician Name Role Phone Cindy Max Primary Care Provider [phone] Reason for Referral * Consultation (Routine) - Closed Specialty Diagnoses / Procedures Referred By Vanessa rosario Referred To Contact Physical Therapy Diagnoses Sprain of left ankle, unspecified ligament, subsequent encounter Cindy Max FNP [address] [place] [address] Phone: tel: fax: [facility] Physical Therapy [address] [place], [place] Phone: tel: fax: Referral ID Status Reason Start Date Expiration Date V isits Requested Visits Authorized [id number] Closed Specialty Services Required 10/05/2024 10/05/2025 1 1 * Consultation (Routine) - Closed Specialty Diagnoses / Procedures Referred By Contbree t Referred To Contact Optometry Diagnoses Primary hypertension Cindy Max FNP [address] [place] [address] Phone: tel: fax: [facility] OPT[facility]ETRY [address] [place] [address] Phone: tel: fax: Referral ID Status Reason Start Date Expiration Date V isits Requested Visits Authorized [id number] Closed Consult and Treat 10/05/2024 10/05/2025 1 1 Encounter Details Date Type Department Care Team (Latest Contact Info) Description 10/05/2024 1:45 PM EST Office Visit [facility] [address] [place] [address] Cindy Max FNP [address] [place] [address] Obstructive sleep apnea (Primary Dx); Routine health maintenance; Primary hypertension; Degeneration of intervertebral disc of lumbar region with discogenic back pain; Sprain of left ankle, unspecified ligament, subsequent encounter; Screening for colon cancer Social History Tobacco Use Types Packs/Day Years Used Date Smoking Tobacco: Never Passive Smoke Exposure: Never Smokeless Tobacco: Never Alcohol Use Standard Drinks/Week Comments Yes 0 (1 standard drink = 0.6 oz pur e alcohol) Certain Occasions Depression Answer Date Recorded Patient Health Questionnaire-9 Score 1 12/19/2023 Patient Health Questionnaire-9 Score 1 12/19/2023 Last PHQ-9: Questionnaire Data Not on file 0 12/19/2023 Housing Stability Answer Date Recorded What is your housing situation today? I have maximiliano hussein 12/19/[address] you li ve. Do you have problems with any of the following? None of the above 12/19/2023 Food Insecurity Answer Date Recorded Within the past 12 months, y ou worried that your food would run out before you got money to buy more: Never True 09/26/2024 Within the past 12 months,th e food you bought just didn't last and you didn't have enough money to get more: Never True Transportation Answer Date Recorded In the past 12 months, has l ack of transportation kept you from medical appts, meetings, work or from getting things needed for daily living? No 12/19/2023 Utilities Answer Date Recorded In the past 12 months, has t he electric, gas, oil or water company threatened to shut off services in your home? No 09/26/2024 Depression Answer Date Recorded Patient Health Questionnaire-2 Score 0 12/19/2023 Internet Access Answer Date Recorded Internet Access Q1 Yes 09/26/2024 Internet Access Q2 Not on file 09/26/2024 Comments No Sex and Gender Information Value Date Recorded Sex Assigned at Female 07/12/2022 10:39 AM EDT Legal Sex Female 10:39 AM EDT Gender Identity Female 07/12/2022 10:39 AM EDT Sexual Orientation Choose not to disclose 2021 10:39 AM EDT documented as of this encounter Last Filed Vital Signs Vital Sign Reading Time Taken Comments Blood Pressure 124/88 10/05/2024 1:43 PM EST Pulse 72 10/05/2024 1:43 PM EST Temperature 37.1 ??C (98.7 ??F) 10/05/2024 1:43 PM ES T Respiratory Rate 24 10/05/2024 1:43 PM EST Oxygen Saturation - - Inhaled Oxygen Concentration - - Weight 65.9 kg (145 lb 6 oz) 10/05/2024 1:43 PM EST Height 145.4 cm (4' 9.25 ) 10/05/2024 1:43 PM ES T Body Mass Index 31.18 10/05/2024 1:43 PM EST documented in this encounter Patient Instructions * Patient Instructions* JULIEN Jackson - 10/05/2024 1:45 PM EST Reference number for updating PCP: [id number] documented in this encounter Progress Notes * JULIEN Jackson - 10/05/2024 1:45 PM EST Subjective: Nazia Howard is a 53 y.o. female who presents to the office for a follow up visit - chronic conditions. Interim History: Last PCP visit: 03/26/24April: Referred to [facility] physical therapy for chronic low back pain and DDD. Current concerns: MARILU severe: Clinical history: hypertension, loud snoring, and daytime sleepiness. Onset: greater than 1 year. Home and hospital based sleep studies completed over the past year, indicated for CPAP. 01/26/24: Sleep study at [facility]. Titration study. Diagnosed with severe MARILU. Pt to be started on CPAP 8 cm of H20 with heated humidifier. DME request placed 10/08/24 Hypertension: BP well controlled at home. Readings 120/80 mmHg. No chest pain, palpitations, SOB, or lower extremity edema. Left ankle sprain in Jun 2024 (3-4 months ago). Initially unable to bear weight. Currently able to bear weight, but reports ROM and stability not at baseline. Home exercises provided and referral to physical therapy for further eval and tx. Past Surgical History: Procedure Laterality Date BELT ABDOMINOPLASTY BREAST SURGERY reduction CARPAL TUNNEL RELEASE Left 03/24/2023 Dr. 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 Respiratory: Negative for cough. Gastrointestinal: Negative for abdominal pain, constipation, diarrhea and vomiting. Genitourinary: Negative for decreased urine volume, difficulty urinating and menstrual problem. Musculoskeletal: Positive for arthralgias. Psychiatric/Behavioral: Positive for sleep disturbance. Negative for suicidal ideas. Visit Vitals BP 124/88 (BP Location: Left arm, Patient Position: Sitting, BP Cuff Size: Adult) Pulse 72 Temp 98.7 ??F (37.1 ??C) (Oral) Resp 24 Ht 4' 9.25 (1.454 m) Wt 145 lb 6 oz (65.9 kg) BMI 31.18 kg/m?? OB Status Postmenopausal Smoking Status Never BSA 1.63 m?? Physical Exam Constitutional: Appearance: Normal appearance. HENT: Head: Atraumatic. Right Ear: External ear normal. Left Ear: External ear normal. Cardiovascular: Rate and Rhythm: Normal rate and regular rhythm. Pulses: Dorsalis pedis pulses are 2+ on the left side. Posterior tibial pulses are 2+ on the left side. Pulmonary: Effort: Pulmonary effort is normal. Breath sounds: Normal breath sounds. Musculoskeletal: Left foot: Decreased range of motion. Feet: Comments: Left ankle: Discomfort with plantar flexion and lateral rotation Neurological: Mental Status: She is alert and oriented to person, place, and time. Psychiatric: Mood and Affect: Mood normal. Behavior: Behavior normal. Problem List Items Addressed This Visit Nervous Obstructive sleep apnea - Primary Overview 08/12/23: [facility] Home Sleep study report. Diagnosed with MARILU, with recommendation for pt to returnfor an in lab sleep study with CPAP/BiPAP and transcutaneous CO2 monitoring. 01/26/24: Hospital sleep study at [facility]. Titration study. Diagnosed with Severe MARILU. Pt to be started on CPAP 8 cm of H20 with heated humidifier DME request 02/03/24 Re-request sent on 10/08/24 with new insurance Circulatory Hypertensive disorder Overview -Following with [facility]. -BP Goal <130/80 mmHg -Continue w/ current regimen through Cards: Carvedilol 25mg QAM Losartan 100mg QAM Amlodipine 5mg at bedtime -Encourage low salt diet and daily exercise. ED precautions reviewed Current Assessment & Plan -Well controlled -Follow up precautions Relevant Orders Referral to [facility] Musculoskeletal Degenerative disc disease, lumbar Overview DDD of lumbar region noted as incidental finding on CT abd/pelvis ordered May 2023 by [facility] Urology Lumbar XR March 2024: [id number] degenerative disc disease and facet arthropathy at L5-S1. Completed physical therapy with improvement in symptoms in 2023 Followed by [facility] Other Routine health maintenance Overview Optometry: referred to [facility] 10/05/24 Dental: discuss at follow up BMD: starting at 67 y/o Routine Cancer Screening Breast CA: BI-RADs 13 Aug 2021 Cervical CA: ASCUS HPV neg Sep 2022, NILM / HPV Pos Sep 2023. February 2024 - Colposcopy w/ Dr. Medina neg for dysplasia. Plan for co-testing in 12 months. Colon CA: cologuard ordered 10/05/24 Relevant Orders Albumin, Random Urine W/Creatinine Lipid Panel, Standard Hemoglobin A1c TSH with Reflex to Free T4 Comprehensive Metabolic Panel CBC auto differential Other Visit Diagnoses Sprain of left ankle, unspecified ligament, subsequent encounter Relevant Orders Referral to Physical Therapy Screening for colon cancer Relevant Orders Cologuard?? colon cancer screening Follow up: 3 months for chronic conditions, sooner PRN Current Outpatient Medications Medication Sig Dispense Refill amLODIPine (Norvasc) 5 MG tablet Take 5 mg by mouth in the morning. carvedilol (Coreg) 25 MG tablet TAKE 1 TABLET BY MOUTH EVERY DAY WITH FOOD 90 tablet 3 guaiFENesin (Mucinex) 600 MG 12 hr tablet Take 1 tablet by mouth every 12 (twelve) hours. losartan (Cozaar) 100 MG tablet Take 1 tablet (100 mg) by mouth Once per day. 90 tablet 3 sodium chloride ([place]) 0.65 % nasal spray 1-2 spray on each nostril every 2- 3 hours as needed fornasal congestion valACYclovir (Valtrex) 1 g tablet take 1 tablet by oral route every 24 hours at start of outbreak for 5 days No current facility-administered medications for this visit. Immunization History Administered Date(s) Administered Influenza injectable quadrivalent preservative free 06/30/2021 Pfizer Covid-19 Vaccine 12+ 02/18/2021, 03/11/2021 Tdap 06/30/2021 Zoster, Recombinant 11/24/2022, 02/01/2023 documented in this encounter Miscellaneous Notes * Patient Education Note - JULIEN Jackson - 10/05/2024 7:24 PM EST Images from the original note were not included. Patient Education Table of Contents Esguince de tobillo, rehabilitaci?n maulik I (Ankle Sprain, Phase I Rehab) To view videos and all your education online visit, [email or web address] or scan this QR code with your smartphone. Access to this content will in one year. Esguince de tobillo, rehabilitaci?n fase I Ankle Sprain, Phase I Rehab Un esguince de tobillo es georgi lesi?n en los tejidos que conectan un hueso con otro (ligamentos) en el tobillo. Los esguinces de tobillo pueden causar rigidez, p?rdida de movimiento y p?rdida de fuerza. Pregunte al m?dico qu?? ejercicios son seguros para usted. Kristan los ejercicios exactamente jeana se lo haya dicho el m?dico y grad?elos jeana se lo haya indicado. Es normal sentir un leve estiramiento, tironeo, opresi?n o malestar al hacer estos ejercicios. Det?ngase de inmediato si siente un dolorrepentino o el dolor empeora. No comience a hacer estos ejercicios hasta que se lo indique el m?dico. Ejercicios de elongaci?n y amplitud de movimiento Estos ejercicios precalientan los m?sculos y las articulaciones. Pueden mejorar el movimiento y la flexibilidad de la parte inferior de la pierna y el tobillo. Adem?s, ayudan a aliviar el dolor y la rigidez. Estiramiento de los m?sculos gemelos y s?aydee Debi ejercicio tambi?n se denomina estiramiento de la pantorrilla. Estira los m?sculos posteriores de la parte inferior de atr?s de la pierna. Estos m?sculos son los gemelos y el s?adyee. 1. Si?ntese en el suelo con la pierna izquierda/derecha extendida. Pase un cintur?n o georgi toalla por la elisha?n metatarsiana del pie rin/derecho. La elisha?n metatarsiana del pie es la superficie sobre la que caminamos, marcial debajo de los dedos. Mantenga el pie y el tobillo izquierdos/derechos relajados y la rodilla extendida. Use el cintur?n o la toalla para traer el pie hacia usted. Debe sentir un estiramiento suave en la pantorrilla o detr?s de la rodilla, en los m?sculos gemelos. Mantenga esta posici?n silvia segundos y luego vuelva a la posici?n inicial. Repita el ejercicio con la rodilla flexionada. Puede poner georgi almohada o georgi toalla enrollada debajo de la rodilla para sostenerla. Debe sentir un estiramiento en la parte profunda de la pantorrilla, en el m?sculo s?aydee, o en el tend?n de Jamarcus. Repita veces. Realice debi ejercicio veces al d?a. Abecedario con el tobillo 1. Si?ntese con la pierna izquierda/derecha con la parte inferior apoyada. No apoye el pie sobre ninguna superficie. Aseg?rese de tener suficiente espacio para director patient financial services el pie. Piense que el pie rin/derecho es un pincel. Mueva el pie de modo de trazar cada letra del abecedario en el aire. No mueva la cadera ni la rodilla mientras traza las letras. Kristan las letras huggins grandes jeana pueda, sin sentir molestias. Trace cada georgi de las letras del abecedario, de la ?A? a la ?Z?. Repita veces. Realice debi ejercicio veces al d?a. Ejercicios de fortalecimiento Estos ejercicios fortalecen el tobillo y la parte inferior de la pierna, y les otorgan resistencia.La resistencia es la capacidad de usar los m?sculos silvia un tiempo prolongado, incluso despu?s de que se cansen. Dorsiflexi?n del tobillo 1. Asegure georgi butterfield de goma o soga el?stica para ejercicios a un objeto firme, jeana la pata de unamesa, que no se mueva al tirar de la butterfield. Col?quese el otro extremo alrededor del pie rin/derecho. Si?ntese en el suelo, frente al objeto, con la pierna izquierda/derecha extendida. La butterfield o soga el?stica debe estar ligeramente tensa cuando el pie est?? relajado. Lentamente, acerque el pie hacia usted, llevando la parte superior del pie hacia la canilla (dorsiflexi?n) y tensando m?s la butterfield. Mantenga esta posici?n silvia segundos. Lentamente, lleve el pie a la posici?n inicial. Repita veces. Realice debi ejercicio veces al d?a. Flexi?n plantar del tobillo 1. Si?ntese en el suelo con la pierna izquierda/derecha extendida. Coloque georgi butterfield de goma o soga el?stica para ejercicios en la elisha?n metatarsiana del pie rin/derecho. La elisha?n metatarsiana del pie es la superficie sobre la que caminamos, marcial debajo de los dedos. [place] los extremos de la butterfield o soga el?stica con las romulo. La butterfield o soga el?stica debe estar ligeramente tensa cuando el pie est?? relajado. Lentamente, apunte el pie y los dedos hacia abajo para inclinar la parte superior del pie en direcci?n contraria a hart canilla (flexi?n plantar). Mantenga esta posici?n silvia segundos. Lentamente, lleve el pie a la posici?n inicial. Repita veces. Realice debi ejercicio veces al d?a. Eversi?n del tobillo 1. Si?ntese en el suelo con las piernas extendidas hacia adelante. Coloque georgi butterfield de goma o soga el?stica para ejercicios en la elsiha?n metatarsiana del pie rin/derecho. La elisha?n metatarsiana del pie es la superficie sobre la que caminamos, marcial debajo de los dedos. [place] los extremos de la butterfield con las romulo o asegure la butterfield a un objeto estable. La butterfield o soga el?stica debe estar ligeramente tensa cuando el pie est?? relajado. Empuje lentamente hacia afuera con el pie, en direcci?n contraria a la otra pierna (eversi?n). Mantenga esta posici?n silvia segundos. Lentamente, lleve el pie a la posici?n inicial. Repita veces. Realice debi ejercicio veces al d?a. Esta informaci?n no tiene jeana fin reemplazar el consejo del m?dico. Aseg?rese de hacerle al m?dicocualquier pregunta que tenga. Document Released: 2007-06-15 Document Updated: 2023-09-07 Document Reviewed: 2023-09-07 [employer] Patient Education ? 2023 [employer]. * Patient Education Note - JULIEN Jackson - 10/05/2024 7:24 PM EST Images from the original note were not included. Patient Education Table of Contents Esguince de marek, rehabilitaci?n fase II (Ankle Sprain, Phase II Rehab) To view videos and all your education online visit, [email or web address] or scan this QR code with your smartphone. Access to this content will in one year. Esguince de tobillo, rehabilitaci?n fase II Ankle Sprain, Phase II Rehab Un esguince de tobillo es georgi lesi?n en el tejido que conecta un hueso con otro (un ligamento) en el tobillo. Los esguinces de tobillo pueden causar rigidez, p?rdida de movimiento y p?rdida de fuerza. Pregunte al m?dico qu?? ejercicios son seguros para usted. Kristan los ejercicios exactamente jeana selo haya dicho el m?dico y grad?elos jeana se lo haya indicado. Es normal sentir un leve estiramiento, tironeo, opresi?n o malestar al hacer estos ejercicios. Det?ngase de inmediato si siente un dolor repentino o el dolor empeora. No comience a hacer estos ejercicios hasta que se lo indique el m?dico. Ejercicios de elongaci?n y amplitud de movimiento Estos ejercicios precalientan los m?sculos y las articulaciones. Pueden mejorar el movimiento y la flexibilidad de la parte inferior de la pierna y el tobillo. Adem?s, ayudan a aliviar el dolor y la rigidez. Estiramiento de los m?sculos gemelos estando de pie Debi ejercicio tambi?n se denomina estiramiento de la pantorrilla (los m?sculos gemelos) estando depie. 1. P?rese con las romulo apoyadas sobre la pared. Extienda la pierna derecha/izquierda por detr?s suyo. Doble levemente la rodilla que est?? adelante. Los talones deben estar apoyados en el suelo. Mantenga los talones apoyados en el suelo y la rodilla de atr?s extendida, y lleve el peso hacia lapared. Debe sentir un leve estiramiento en la allyn de atr?s de la parte inferior de la pierna (pantorrilla). Mantenga esta posici?n silvia segundos. Repita veces. Realice debi ejercicio veces al d?a. Estiramiento del m?sculo s?aydee estando de pie Debi ejercicio tambi?n se denomina estiramiento de la pantorrilla (m?sculo s?aydee) estando de pie. 1. P?rese con las romulo apoyadas sobre la pared. Extienda la pierna derecha/izquierda por detr?s suyo. Doble levemente la rodilla que est?? adelante. Ambos talones deben estar apoyados en el suelo. Mantenga los talones apoyados en el suelo, flexione la rodilla de atr?s y lleve el peso ligeramentea la pierna de atr?s. Debe sentir un estiramiento suave en la parte profunda de la pantorrilla. Mantenga esta posici?n silvia segundos. Repita veces. Realice debi ejercicio veces al d?a. Ejercicios de fortalecimiento Estos ejercicios fortalecen la parte inferior de la pierna y le otorgan resistencia. La resistenciaes la capacidad de usar los m?sculos silvia un tiempo prolongado, incluso despu?s de que se cansen. Caminata sobre los talones Debi ejercicio suele denominarse dorsiflexi?n. 1. Camine sobre los talones silvia segundos o pasos. Mantenga los dedos tanhacia arriba jeana sea posible. Repita veces. Realice debi ejercicio veces al d?a. Ejercicios de equilibrio Estos ejercicios mejoran el equilibrio, y la reacci?n y el control del tobillo. Ayudan a mejorar laestabilidad. Estocada multiangular 1. P?rese con los pies juntos. D?? un paso hacia adelante con la pierna izquierda/derecha. Mueva el peso sobre felipa pierna. El betsy?n de la pierna de atr?s se levantar?? del suelo y los dedos seguir?n apoyados. Lleve la pierna de adelante otra vez hacia atr?s, a la posici?n inicial, junto al otro pie. Repita el movimiento hacia el costado, hacia atr?s y hacia cualquier otra direcci?n, jeana se lo haya indicado el m?dico. Repita veces. Realice debi ejercicio veces al d?a. Pararse sobre georgi pierna Si debi ejercicio es muy f?cil, puede intentar hacerlo con los ojos cerrados o parado sobre georgi almohada. 1. Sin calzado, p?rese cerca de georgi baranda o en el jack de georgi gerry. Sost?ngase de la baranda madelin jack de la gerry seg?n lo necesite. Suelte la baranda o el jack de la gerry cuando pueda. P?rese sobre el pie rin/derecho. Sin despegar el dedo erica del suelo, intente mantener el arco levantado. Mantenga esta posici?n silvia segundos. Repita veces. Realice debi ejercicio veces al d?a. Inversi?n y eversi?n del tobillo Debi ejercicio tambi?n se denomina rotaci?n del pie con georgi tabla de equilibrio. Se utiliza georgi tabla de equilibrio para rotar el pie y el tobillo hacia adentro (inversi?n) y hacia afuera (eversi?n).Preg?ntele al m?dico d?nde puede conseguir georgi tabla de equilibrio o c?mo puede hacer georgi. 1. P?rese en georgi superficie no alfombrada cerca de georgi encimera o pared. P?rese sobre la tabla de equilibrio con los pies separados al ancho de las caderas. Mantenga los pies en hart lugar. Mantenga la parte superior del cuerpo y las caderas firmes. Usando solo los pies y los tobillos para director patient financial services la tabla, kristan estos ejercicios jeana se lo haya indicado el m?dico: Incline la tabla hacia un lado y hacia el otro, lo m?s lejos que pueda, cambiando entre el lado rin y el lado derecho. Incline la tabla hasta que toque el suelo sin hacer ruido. No deje que la tabla golpee el suelo confuerza. De vez en cuando, kristan georgi pausa para mantener georgi posici?n de equilibrio a mitad de page, sin que el lado derecho ni el lado rin toquen el suelo. Incline la tabla hacia un lado y hacia el otro, leif no deje que golpee el suelo en absoluto. De vez en cuando, kristan georgi pausa para mantener georgi posici?n de equilibrio a mitad de page. Repita veces. Realice debi ejercicio veces al d?a. Flexi?n plantar y dorsiflexi?n del tobillo Debi ejercicio tambi?n se denomina flexi?n del pie con georgi tabla de equilibrio. Se utiliza georgi tabla de equilibrio para empujar el pie hacia abajo y alejarlo de la pierna (flexi?n plantar) o hacia arriba y hacia la pierna (dorsiflexi?n). Preg?ntele al m?dico d?nde puede conseguir georgi tabla de equilibrio o c?mo puede hacer georgi. 1. P?rese en georgi superficie no alfombrada cerca de georgi encimera o pared. P?rese sobre la tabla de equilibrio con los pies separados al ancho de las caderas. Mantenga los pies en hart lugar. Mantenga la parte superior del cuerpo y las caderas firmes. Usando solo los pies y los tobillos para director patient financial services la tabla, kristan lia de estos ejercicios, o los dos, jeana se lo haya indicado el m?dico: Incline la tabla hacia adelante y hacia atr?s hasta que toque el suelo sin hacer ruido. No deje quela tabla golpee el suelo con fuerza. De vez en cuando, kristan georgi pausa para mantener georgi posici?n de equilibrio a mitad de page entre tocar el suelo adelante y tocar el suelo atr?s. Incline la tabla hacia adelante y hacia atr?s, leif no deje que golpee el suelo en absoluto. De vezen cuando, kristan georgi pausa para mantener georgi posici?n de equilibrio a mitad de page. Repita veces. Realice debi ejercicio veces al d?a. Esta informaci?n no tiene jeana fin reemplazar el consejo del m?dico. Aseg?rese de hacerle al m?dicocualquier pregunta que tenga. Document Released: 2007-06-15 Document Updated: 2023-09-07 Document Reviewed: 2023-09-07 Else[employer] Patient Education ? 2023 Genomind. * Assessment & Plan Note - JULIEN Jackson - 10/05/2024 1:57 PM ESTAssociated Problem(s): Hypertensive disorder -Well controlled -Follow up precautions documented in this encounter Plan of Treatment Upcoming Encounters Date Type Department Care Team (Late st Contact Info) Description 10/11/2024 2:00 PM EST Office Visit [facility] OPTOMETRY [address] [place] [address] Pippa Gr, OD [address] [place] [address] Scheduled Orders Name Type Priority Associated Diagnoses Orde r Schedule Albumin, Random Urine W/Creatinine Lab Routine Routine health maintenance Expected: 10/05/2024 (Approximate), Expires: 10/05/2025 Lipid Panel, Standard Lab Routine Routine health maintenance Expected: 10/05/2024 (Approximate), Expires: 10/05/2025 Hemoglobin A1c Lab Routine Routine health maintenance Expected: 10/05/2024 (Approximate), Expires: 10/05/2025 TSH with Reflex to Free T4 Lab Routine Routine health maintenance Expected: 10/05/2024 (Approximate), Expires: 10/05/2025 Comprehensive Metabolic Panel Lab Routine Routine health maintenance Expected: 10/05/2024 (Approximate), Expires: 10/05/2025 CBC auto differential Lab Routine Routine health maintenance Expected: 10/05/2024, Expires: 10/05/2025 Cologuard?? colon cancer screening Lab Routine Screening for colon cancer Ordered: 10/05/2024 Scheduled Referrals Name Type Priority Associated Diagnoses Orde r Schedule Referral to [facility] Care Outpatient Referral Routine Primary hypertension Expected: 10/05/2024 (Approximate), Expires: 10/05/2025 Referral to Physical Therapy Outpatient Referral Routine Sprain of left ankle, unspecified ligament, subsequent encounter Expected: 10/05/2024 (Approximate), Expires: 10/05/2025 documented as of this encounter Visit Diagnoses Diagnosis Obstructive sleep apnea- Primary Obstructive sleep apnea (adult) (pediatric) Routine health maintenance Unspecified examination Primary hypertension Unspecified essential hypertension Degeneration of intervertebral disc of lumbar region with discogenic back pain Sprain of left ankle, unspecified ligament, subsequent encounter Screening for colon cancer Special screening for malignant neoplasms, colon documented in this encounter Additional Health Concerns Assessment Noted Time PHQ-9 Depression Total Score: 1 12/19/19 24 9:09 AM EDT documented as of this encounter Care Teams Contract Technician Relationship Specialty Start Date End Date Cindy Max FNP [address] [place] [phone] PCP - General Family Medicine 05/09/22 documented as of this encounter
--- OUTSIDE RECORDS SUMMARY | 2024-10-11 11:09 | XMS_ITS | Encounter Summary ---
Author Organization [employer] Address [address] [facility] [address] [place] [address] Care Team Providers Care Composite Science Teacher Name Role Phone Cindy Max JULIEN Primary Care Provider [phone] Reason for Visit * Reason Onset Date Comments Chart Prep 10/04/2024 Encounter Details Date Type Department Care Team ([facility] Contact Info) Description 10/04/2024 Telephone [facility] [address] [place] [address] Stew Marrero MA Chart Prep Social History Tobacco Use Types Packs/Day Years [...] AM EDT documented as of this encounter Miscellaneous Notes * Telephone Encounter - Stew De Los Santos MA - 10/04/2024 5:46 PM EST Chart Prep Labs: done Images: done Vaccines due: yes Referrals: complete Screenings: colonoscopy Overdue care gaps: A1C, Sbirt, SDOH, PHQ-9, PISQ documented in this encounter Plan of Treatment Upcoming Encounters Date Type Department Care Team (Late st Contact Info) Description 10/11/2024 2:00 PM EST Office Visit [facility] OPTOMETRY [address] [place] [address] Pippa Gr OD [address] [place] [address] documented as of this encounter Visit Diagnoses Not on filedocumented in this encounter Additional Health Concerns Assessment Noted Time PHQ-9 Depression Total Score: 1 12/19/19 24 9:09 AM EDT documented as of this encounter Care Teams Composite Science Teacher Relationship Specialty Start Date End Date Cindy Max FNP [address] [place] [address] PCP - General Family Medicine 05/09/22 documented as of this encounter
--- OUTSIDE RECORDS SUMMARY | 2024-10-11 11:09 | XMS_ITS | Clinical Summary ---
Author Organization [employer] Address [address] [place] [address] 7 [place] [address] Care Team Providers Care Pin Sticker Name Role Phone Cindy Max JULIEN Primary Care Provider [phone] Allergies No known active allergies Medications guaiFENesin (Mucinex) 600 MG 12 hr tablet Take 1 tablet by mouth every 12 (twelve) hours. 07/07/20 22 Active sodium chloride ([place]) 0.65 % nasal spray 1-2 spray on each nostril every 2- 3 hours as needed for nasal congestion 07/07/20 22 Active valACYclovir (Valtrex) 1 g tablet take 1 tablet by oral route every 24 hours at start of outbreak for 5 days 06/18/20 22 Active amLODIPine (Norvasc) 5 MG tablet Take 5 mg by mouth in the morning. 09/24/19 23 Active carvedilol (Coreg) 25 MG tabletIndicati ons:Hypertensi on, unspecified type TAKE 1 TABLET BY MOUTH EVERY DAY WITH FOOD 90 tablet 3 05/17/20 24 Active losartan (Cozaar) 100 MG tablet Take 1 tablet (100 mg) by mouth Once per day. 90 tablet 3 10/05/19 25 Active losartan (Cozaar) 100 MG tablet TAKE 1 TABLET BY MOUTH EVERY DAY 90 tablet 3 01/18/20 24 025 Discontinued(Re order (will not trigger notification to Pharmacy)) Active Problems Problem Noted Date Diagnosed Date Diverticulosis 12/22/2023 Overview (12/22/2023): Noted on CT abd/pelvis May 2023 Degenerative disc disease, lumbar 12/22/2023 Overview (10/08/2024): DDD of lumbar region noted as incidental finding on CT abd/pelvis ordered May 2023 by [facility] Lumbar XR March 2024: Dqstzsid-rr-gfwuya degenerative disc disease and facet arthropathy at L5-S1. Completed physical therapy with improvement in symptoms in 2023 Followed by [facility] Obstructive sleep apnea 12/22/2023 Overview (10/08/2024): 08/12/23: [facility] Home Sleep study report. Diagnosed with MARILU, with recommendation for pt to return for an in lab sleep study with CPAP/BiPAP and transcutaneous CO2 monitoring. 01/26/24: Hospital sleep study at [facility]. Titration study. Diagnosed with Severe MARILU. Pt to be started on CPAP 8 cm of H20 with heated humidifier DME request 02/03/24 Re-request sent on 10/08/24 with new insurance Assessment & Plan (03/30/2024 7:42 AM EDT): Insurance requesting further information. Plan to refax DME request with additional information for approval. Benign paroxysmal positional vertigo due to bilateral vestibular disorder 12/22/2023 Overview (12/22/2023): Eloy-Hallpike positive on exam 12/19/23 Discussed tx options, referral to vestibular rehab therapy placed for further tx Assessment & Plan (12/22/2023 11:32 AM EDT): Follow up with persistence or worsening of symptoms Vitamin D deficiency 06/26/2023 Overview (06/26/2023): ?? Last Vit D 17 ng/mL 11/08/22 ?? Continues with Vit D Supplement - 2000 units daily Assessment & Plan (06/26/2023 12:11 PM EDT): Repeat Vit D lab Routine health maintenance 11/19/2022 Overview (10/08/2024): Optometry: referred to [facility] 10/05/24 Dental: discuss at follow up BMD: starting at 67 y/o Routine Cancer Screening Breast CA: BI-RADs 13 Aug 2021 Cervical CA: ASCUS HPV neg Sep 2022, NILM / HPV Pos Sep 2023. February 2024 - Colposcopy w/ Dr. Medina neg for dysplasia. Plan for co-testing in 12 months. Colon CA: cologuard ordered 10/05/24 Prediabetes 11/19/2022 Overview (10/05/2024): Lab Results Component Value Date HGBA1C 5.6 06/08/2023 -Encouraged lifestyle interventions including daily physical activity, goal 150 mins exercise weekly. Well balanced diet rich in fruits, vegetables, water consumption. Assessment & Plan (06/26/2023 12:07 PM EDT): -Repeat A1c ordered Assessment & Plan (11/19/2022 12:51 PM EST): -Pt currently drinking about 3 glasses of juice daily, goal to cut down to 1-2 glasses of juice daily, then eliminate completely if able. Bilateral carpal tunnel syndrome 11/07/2022 Overview (11/07/2022): -EMG confirmed 2021 -Referred to [facility] 11/05/22 Atypical chest pain 08/17/2022 Subdural hematoma 08/17/2022 Overview (11/07/2022): 2020 Presenting symptoms were 1 month of SABILLON, high BPs, and then went to ED with difficulty speaking 06/02- treated with tranexamic acid, there was initial question of aneurism or fistula on CT and MRI 06/11/21 angiogram showed no fistula or aneurism pt denies other easy bruising/bleeding Patient was discharged by neurosurgery with return precautions discussed, no further imaging indicated History of human papilloma virus 08/17/2022 Assessment & Plan (12/22/2023 11:17 AM EDT): Colposcopy completed 10/03/[address] Medina - Cervix biopsy results: squamous and endocervical glandular mucosa; negative for dysplasia. Cont following with [facility] Hyperlipidemia 07/09/2021 Overview (12/19/2023): -ASCVD risk: 2.7% May 2023 -Lifestyle interventions encouraged Assessment & Plan (06/26/2023 12:07 PM EDT): Repeat FLP Hypertensive disorder 06/30/2021 Overview (11/07/2022): -Following with [facility]. Last follow up Oct 2022 -BP Goal <130/80 mmHg -Continue w/ current regimen through Cards: ?? Carvedilol 25mg QAM ?? Losartan 100mg QAM ?? Amlodipine 5mg at bedtime -Encourage low salt diet and daily exercise. ED precautions reviewed Assessment & Plan (10/08/2024 6:34 PM EST): -Well controlled -Follow up precautions Assessment & Plan (03/30/2024 7:55 AM EDT): -Elevated in office, but well controlled per home readings -Follow up precautions Assessment & Plan (12/22/2023 11:31 AM EDT): -Well controlled per home readings -Intermittent COLEMAN, consider deconditioning vs cardiac vs respiratory vs other -Echo ordered 12/22/23 for further eval -Follow up with Cards Kidney stone 06/30/2021 Overview (12/22/2023): Following with [facility] - JULIEN Mcguire History of passing approx 4 kidney stones over lifetime, with first one starting at 14y/o Encouraged adequate hydration 12/12/23: Renal US BL ordered by Ruthie VICTORIA. Impression - bilateral nephrolithiasis, borderline mild left hydronephrosis. (Kidney stones 2mm in diameter) Assessment & Plan (11/07/2022 12:40 PM EST): -Reports passing approx 4 kidney stones over lifetime, with first one starting at 14y/o -Endorses hx of lithotripsy -Intermittent discomfort per pt, although no active pain, dysuria, or hematuria -Encouraged adequate hydration -Interested in establishing with Urologist, referral placed 11/05/22 Resolved Problems Problem Noted Date Diagnosed Date Resolved Date Vitamin D insufficiency 06/26/202306/12 Assessment & Plan (06/26/2023 12:09 PM EDT): ?? Continues on daily Vit D supplement Encounters Date Type Department Care Team Description 10/09/2024 Telephone [facility] MED & PEDS [address] [place] [address] Cindy Max FNP Durable Medical Equipment 10/05/2024 1:45 PM EST Office Visit [facility] MED [facility] PEDS [address] [place] [address] Cindy Max FNP Obstructive sleep apnea (Primary Dx); Routine health maintenance; Primary hypertension; Degeneration of intervertebral disc of lumbar region with discogenic back pain; Sprain of left ankle, unspecified ligament, subsequent encounter; Screening for colon cancer 10/05/2024 Travel 10/04/2024 Telephone [facility] MED [facility] PEDS [address] [place] [address] Stew Marrero MA Chart Prep 09/26/2024 Patient Outreach [facility] [address] [place] [address] Cindy Max FNP Pre-visit Planning (SDOH negative, tobacco screening negative. ) 09/08/2024 Orders Only [facility] MED[facility] [address] [place] [address] ProviderEugene MD 08/31/2024 Travel 07/26/2024 Telephone [facility] [address] [place] [address] Alicia Howard MA September Recall from Last 3 Months Immunizations Name Administration Dates Next Due Influenza injectable quadrivalent preservative f ree 06/30/2021 Pfizer Covid-19 Vaccine 12+ 03/11/2021, Tdap 06/30/2021 Zoster, Recombinant 02/01/2023,11/24/2022 Family History Medical History Relation Name Comments Hypertension Brother Diabetes Father Nephrolithiasis Father Ovarian cancer Father's Sister Coronary artery disease Mother Diabetes Mother Stroke Mother Diabetes Sister Relation Name Status Comments Brother Father Father's Sister Mother Sister Social History Tobacco Use Types Packs/Day Years Used Date Smoking Tobacco: Never Passive Smoke Exposure: Never Smokeless Tobacco: Never Tobacco Cessation:Counseling Given: Not Answered Alcohol Use Standard Drinks/Week Comments Yes 0 [...] not to disclose 2021 10:39 AM EDT Last Filed Vital Signs Vital Sign Reading Time Taken Comments Blood Pressure 124/88 10/05/2024 1:43 PM EST Pulse 72 10/05/2024 1:43 PM EST Temperature 37.1 ??C (98.7 ??F) 10/05/2024 1:43 PM ES T Respiratory Rate 24 10/05/2024 1:43 PM EST Oxygen Saturation 98% 03/26/2024 1:44 PM EDT Inhaled Oxygen Concentration - - Weight 65.9 kg (145 lb 6 oz) 10/05/2024 1:43 PM EST Height 145.4 cm (4' 9.25 ) 10/05/2024 1:43 PM ES T Body Mass Index 31.18 10/05/2024 1:43 PM EST Plan of Treatment Upcoming Encounters Date Type Department Care Team (Late st Contact Info) Description 10/11/2024 2:00 PM EST Office Visit [facility] OPTOMETRY [address] [place], [place] [phone] Pippa Gr, OD [address] [place] [address] Health Maintenance Due Date Last Done Comments CT Colonography 1972 Dental Oral Exam 1972 Dental Prophylaxis 1972 Dental X-Ray: Bitewings 1972 Dental X-Ray: Full Mouth 1972 FIT DNA/Cologuard 1972 FIT 1972 FOBT 1972 Sigmoidoscopy 1972 Alcohol/Substance Use Screening 1984 Family Planning (PISQ) 11/19/1987 Hepatitis B Vaccines (1 of 3 - 19+ 3-dose series) 11/19/1991 Pneumococcal Vaccine: 50+ Years (1 of 1 - PCV) 2022 Mammogram 09/10/2023 09/10/2021 Colonoscopy 09/21/2023 Colorectal Cancer Screening 09/21/2023 COVID-19 Vaccine ( season) 2024 03/11/2021, 02/18/2021 Influenza Vaccine (#1) 2024 06/30/2021 Diabetes: Hemoglobin A1C 06/08/2024 023, 11/08/2022, 06/30/2021 Depression Screening 12/18/2024 12/19/2023, 12/19/19 24 Cervical Cancer Screening 03/05/2025 HPV/Cotest 03/05/2025 09/20/2023, 09/12, 09/07/2021 Pap Smear 03/05/2025 09/20/2023, 09/12, 09/07/2021, Additional history exists SDOH Screening 09/26/2025 09/26/2024 Tobacco Screening 10/05/2025 10/05/2024 Lipid Panel 06/08/2028 06/08/2023, 10/14, 06/30/2021 DTaP/Tdap/Td Vaccines (2 - Td or Tdap) 06/30/2031 06/30/2021 RSV Patients and Patients Aged 60 years or older (1 - 1-dose 75+ series) 11/19/2047 HIV Screening Completed 11/08/2022, 06/30/2021 Hepatitis C Screening Completed 11/08/2022, 021 Zoster Vaccines Completed 02/01/2023, 11/24/2022 HIB Vaccines Aged Out No longer eligi ble based on patient's age to complete this topic HPV Vaccines Aged Out No longer eligi ble based on patient's age to complete this topic Hepatitis A Vaccines Aged Out No long er eligible based on patient's age to complete this topic IPV Vaccines Aged Out No longer eligi ble based on patient's age to complete this topic Meningococcal Vaccine Aged Out No joyce irma eligible based on patient's age to complete this topic RSV under 20 months Aged Out No longe r eligible based on patient's age to complete this topic Rotavirus Vaccines Aged Out No longer eligible based on patient's age to complete this topic Procedures Procedure Name Priority Date/Time Associated Diagnosis Comments HPV MRNA E6/E7 REFLEX TO HPV 16, 18/45 Routine 09/20/2023 3:09 PM EST PAP SMEAR Routine 09/20/2023 3:09 PM EST Cervical cancer screening HEMOGLOBIN A1C Routine 06/08/2023 8:18 AM EDT Prediabetes LIPID PANEL, STANDARD Routine 06/08/2023 8:18 AM EDT Mixed hyperlipidemia HEPATITIS C AB W/REFL TO HCV RNA, QN, PCR Routine 11/08/2022 8:39 AM EST Routine health maintenance HIV 1 RNA, QN PCR W/RFL PRETTY (RTI,PI,INTEGRASE) Routine 11/08/2022 8:39 AM EST Routine health maintenance MAMMOGRAM GENERIC Routine 09/10/2021 9:3 0 AM EST from Last 3 Months or Most Recently Relevant to Health Maintenance Results * (ABNORMAL) HPV mRNA E6/E7 w/Reflex to HPV Genotypes 16, 18/45 (09/20/2023 3:09 PM EST) HPV nRNA E6/E7 Detected(A ) Not Detected [facility] Comment:Methodology: Transcr iption-Mediated AmplificationThis assay detects E6/E7 viral messenger RNA (mRNA) from 14high-risk HPV types (16,18,31,33,35,39,45,51,52,56,58,59,66,68).Cervical sources are required for HPV testing.If a vaginal source from a patient who has had atotal hysterectomy with removal of cervix wassubmitted, please contact the testing laboratoryfor alternative testing options.For additional information, please refer tohttp://education.ONE Change/faq/DSH499s8(This link if provided for information/educational purposes only.)THIS TEST WAS PERFORMED AT:[facility] [place] [phone] STEWART MD HPV 16 RNA NOT DETECTED NOT DETECTED [facility] HPV 18/45 RNA NOT DETECTED NOT DETECTED [facility] Comment:Methodology: Transcr iption Mediated AmplificationCervical sources are required for HPV testing.If a vaginal source from a patient who has had atotal hysterectomy with removal of cervix wassubmitted, please contact the testing laboratoryfor alternative testing options.THIS TEST WAS PERFORMED AT:[facility] [place] [phone] STEWART MD 09/20/2023 3:09 PM EST 09/21/2023 10:22 AM EST us Helen Ellis [facility] LAB CYTOLOGY ORDERABLES F inal Result [facility] [address] [place] [phone] * Pap Smear (09/20/2023 3:09 PM EST) Swab Cervix uteri structure / Unknown 09/20/2023 3:09 PM EST 09/21/2023 10:22 AM EST Narrative [facility] - 09/29/2023 8:40 AM EST ----- ------- Name: Nazia Corona ? Age/Sex: 52/F ? : 1970 Unit#: [id number] ?? Attend Dr: ?Re09/20/23 ?Status: PRE REF ? Location: HO.LNP ?Disch: ? ----- ------- SPEC : [id number] ?RECD: 09/21/23 ? STATUS: ??SOUT ? REQ NUM: [id number] ? EDILMA: 09/20/23088 ? SUBM DR: HELEN ELLIS CNM ? ENTERED: ??09/21/230 ?SP TYPE: Pap Smr ?OTHR DR: ? ORDERED: ??Pap Smear, PAP path review ? Interpretation ?? General Category: ? Negative for intraepithelial lesion/malignancy. ?? Adequacy: ? Endocervical component present. ?? Comment: ?Shift in vaginal alfa. ? HPV mRNA E6/E7: ?DETECTED ? This assay detects E6/E7 viral messenger RNA (mRNA) from 14 high-risk HPV types (16, 18, ?? 31, 33, 35, 39, 45, 51, 52, 56, 58, 59, 66, 68) ? HPV Type 16 RNA: ?Not Detected ?? HPV Type 18/45 RNA: ? Not Detected ? HPV testing performed by [facility], [place], [place]. ??See reference laboratory ?? portion of the EMR for entire report. ?Clinical Information LMP: Postmenopausal Previous PAP test: 09/2022, ASCUS HPV- Other history: Hx of NIL/HPV pos ? Material Received ?? ThinPrep-Cervical ----- ------- Signed (signature on file) Felix Carmona MD 09/29/23 0840 ? ----- ------- ? END OF REPORT ? us Helen Ellis [facility] LAB CYTOLOGY ORDERABLES F inal Result [facility] [address] [place] [phone] * Hemoglobin A1c (06/08/2023 8:18 AM EDT) Hemoglobin A1c 5.6 <6.0 % [facility] Comment:Hemoglobin A1C Refer ence Range Adults: 4.8 - 6.0 % Non diabetic: < 6.0 % Goal: < 7.0 %Additional Action Suggested: > 8.0 %Note: Hemoglobin A1c results are invalid for patients with abnormal amounts of HbF. Blood transfusions may impact the HbA1c concentration in the patient sample. Estimated Average Glucose 114 mg/dL [facility] Comment:eAG = Estimated ave rage glucose which is %A1C expressed asaverage glucose, using the formula of the S9L-YfrvcjfIiervqz Glucose study (ADAG), Diabetes Care, Vol.31,#8,2007 Blood Venous blood specimen / Unknown 06/08/2023 8:18 AM EDT 06/08/2023 11:22 AM EDT Cindy Max MEDICAL BILLING REPRESENTATIVE LAB BLOOD ORDERABLES Final Res ult Performing Organization Address [facility] Co de Phone Number [facility] [address] [place] [phone] * (ABNORMAL) Lipid Panel, Standard (06/08/2023 8:18 AM EDT) Triglycerides 200(H) <150 mg/dL [facility] Comment:Desirable Triglyceri de: less than 150 mg/dLBorderline High Triglyceride 150-199 mg/dLHigh Triglyceride: 200-499 mg/dLVery High Triglyceride: greater than or equal to 5OO mg/dL Cholesterol 254(H) <200 mg/dL [facility] Comment:Desirable Cholestero l: less than 200 mg/dLBorderline High Cholesterol: 200-239 mg/dLHigh Cholesterol: greater than 239 mg/dL LDL Cholesterol Calculated 164(H) <100 mg/dL [facility] Comment:Desirable LDL: less than 100 mg/dLNear Optimal/Above Optimal LDL: 110- 129 mg/dLBorderline High LDL: 130-159 mg/dLHigh LDL: 160-189 mg/dLVery High LDL: greater than or equal to 190 mg/dL HDL Cholesterol 50 >40 mg/dL [facility] Comment:Desirable HDL: great er than 40 mg/dL Note: This HDL assay may give artificially low results in patients with liver disease. Blood Venous blood specimen / Unknown 06/08/2023 8:18 AM EDT 06/08/2023 11:22 AM EDT Cindy Max MEDICAL BILLING REPRESENTATIVE LAB BLOOD ORDERABLES Final Res ult Performing Organization Address City/[facility]/ZIP Co de Phone Number [facility] [address] [place] [phone] * HIV-1 RNA, Quantitative, Real-Time PCR with Reflex to Genotype (RTI, PI, Integrase) (11/08/2022 8:39 AM EST) Pathologist [facility] HIV 1 RNA, QN PCR NOT DETECTED copies/mL [facility], HIV 1 RNA, QN PCR NOT DETECTED Log copies/mL [facility], Comment: REFERENCE RANGE: NOT DETECTED copies/mL ?NOT DETECTED ??Log copies/mL This test was performed using Real-Time Polymerase Chain Reaction. Reportable range is 20 to 10,000,000 copies/mL (1.30-7.00 Log copies/mL). 11/08/2022 8:39 AM EST 11/08/2022 8:39 AM EST Narrative [facility] - 11/11/2022 12:22 AM EST FASTING:YES FASTING: YES us Cindy Max [facility] LAB BLOOD ORDERABLES Final Res ult [facility] [address], [place] [address] [facility], [address] [place] [phone] * Hepatitis C Antibody with Reflex to HCV, RNA, Quantitative, Real-Time PCR (11/08/2022 8:39 AM EST) Pathologist [facility] Hepatitis C Antibody NON-REACT SHIRLEY NON-REACT SHIRLEY [facility] Index 0.06 <1.00 [facility] Comment: HCV antibody was non-reactive. There is no laboratory evidence of HCV infection. In most cases, no further action is required. However, if recent HCV exposure is suspected, a test for HCV RNA (test code 79009) is suggested. For additional information please refer to http://education.ONE Change/faq/ENI91q5 (This link is being provided for informational/ educational purposes only.) Blood Venous blood specimen / Unknown 11/08/2022 8:39 AM EST 11/08/2022 8:39 AM EST Narrative [facility] - 11/11/2022 12:22 AM EST FASTING:YES FASTING: YES us Cindy Max MEDICAL BILLING REPRESENTATIVE LAB BLOOD ORDERABLES Final Res ult [facility] [address] [facility], [place] [address] [facility] [address] [facility], ([address]) [place] [address] * Mammography Report 1 (09/10/2021 9:30 AM EST) Anatomical Region Laterality Modality Breast Bilateral Mammography 09/10/2021 9:30 AM EST Narrative 09/14/2021 8:40 AM EST Refer to the Notes tab for result details [facility] Procedure: Mammography Report 1 Procedure Note Provider, MD Eugene - 12/05/2022 Refer to the Notes tab for result details [facility] Procedure: Mammography Report 1 us Jenny Guajardo MEDICAL BILLING REPRESENTATIVE IMG BI PROCEDURES Final Result from Last 3 Months or Most Recently Relevant to Health Maintenance Insurance DENTAL - HSN PARTIAL (MEDICAID) [facility] Care Teams Pin Sticker Relationship Specialty Start Date End Date Cindy Max FNP [address] [place] [phone] PCP - General Family Medicine 05/09/22
--- OUTSIDE RECORDS SUMMARY | 2024-10-11 11:09 | XMS_ITS | Encounter Summary ---
Author Organization [employer] Address [address] [place] [address] 7 [place] [address] Care Team Providers Care Beater Out Leveling Machine Name Role Phone Cindy Max Primary Care Provider Reason for Visit * Reason Comments Pre-visit Planning SDOH negative, tobac co screening negative. Encounter Details Date Type Department Care Team ([facility] Contact Info) Description 09/26/2024 Patient Outreach [facility] MED & PEDS [address] [place] [address] Cindy Max FNP [address] [place] [address] Pre-visit Planning (SDOH negative, tobacco screening negative. ) Social History Tobacco Use Types Packs/Day Years [...] AM EDT documented as of this encounter Progress Notes * Celine Marlow - 09/26/2024 3:02 PM EST CC Celine Reno placed successful outbound call to patient for pre-visit planning. Patient name and confirmed. Patient confirms appt date and time, and has transportation arrangements. Biggest concern for appointment at this time is no concerns. Appropriate screenings completed in anticipation ofappointment. documented in this encounter Plan of Treatment Upcoming Encounters Date Type Department Care Team (Late st Contact Info) Description 10/11/2024 2:00 PM EST Office Visit [facility] OPTOMETRY [address] [place] [address] Pippa Gr OD [address] [place] [address] documented as of this encounter Visit Diagnoses Not on filedocumented in this encounter Additional Health Concerns Assessment Noted Time PHQ-9 Depression Total Score: 1 12/19/19 24 9:09 AM EDT documented as of this encounter Care Teams Beater Out Leveling Machine Relationship Specialty Start Date End Date Cindy Max FNP [address] [place] [address] PCP - General Family Medicine 05/09/22 documented as of this encounter
--- OUTSIDE RECORDS SUMMARY | 2024-10-11 11:09 | XMS_ITS | Encounter Summary ---
Author Organization [employer] Address [address] [facility] 7t [place] [address] Care Team Providers Care Forest Officer Name Role Phone Cindy Max JULIEN Primary Care Provider [phone] Encounter Details Date Type Department Care Team (Latest Contact Info) Description 10/05/2024 Travel Social History Tobacco Use Types Packs/Day Years [...] AM EDT documented as of this encounter Plan of Treatment Upcoming Encounters Date Type Department Care Team (Late st Contact Info) Description 10/11/2024 2:00 PM EST Office Visit [facility] OPTOMETRY [address] [place] [address] Pippa Gr, OD [address] [place] [address] documented as of this encounter Visit Diagnoses Not on filedocumented in this encounter Additional Health Concerns Assessment Noted Time PHQ-9 Depression Total Score: 1 12/19/19 24 9:09 AM EDT documented as of this encounter Care Teams Forest Officer Relationship Specialty Start Date End Date Cindy Max FNP [address] [place] [address] PCP - General Family Medicine 05/09/22 documented as of this encounter
--- OUTSIDE RECORDS SUMMARY | 2024-10-11 11:09 | XMS_ITS | Encounter Summary ---
Author Organization [employer] Address [address] [facility] 7t [place] [address] Care Team Providers Care Bulk Plant Agent Name Role Phone Cindy Max JULIEN Primary Care Provider [phone] Encounter Details Date Type Department Care Team ([facility] st Contact Info) Description 09/08/2024 Orders Only [facility] MEDICINE [address] [place] [address] Provider, MD Eugene Social History Tobacco Use Types Packs/Day Years [...] before you got money to buy more: Often true 12/19/2023 Within the past 12 months,th e food you bought just didn't last and you didn't have enough money to get more: Often true 04/2024 Transportation Answer Date Recorded In the past 12 months, has l ack of transportation kept you from medical appts, meetings, work or from getting things needed for daily living? No 12/19/2023 Utilities Answer Date Recorded In the past 12 months, has t he electric, gas, oil or water company threatened to shut off services in your home? Yes 12/19/2023 Depression Answer Date Recorded Patient Health Questionnaire-2 Score 0 12/19/2023 Comments No Sex and Gender Information Value [...] Description 10/11/2024 2:00 PM EST Office Visit [facility] OPTOMETRY [address] [place], [place] [phone] Pippa Gr, MARY KATE [address] [place], [place] [phone] documented as of this encounter Procedures Procedure Name Priority Date/Time Associated Diagnosis Comments BIOPSY CERVIX Routine 03/05/2024 5:39 PM EDT BIOPSY CERVIX Routine 12/30/2023 5:18 PM EDT documented in this encounter Results * Biopsy cervix (03/05/2024 5:39 PM EDT) Historical Provider MD IN CLINIC/BEDSIDE ORDERAB LES Final Result * Biopsy cervix (12/30/2023 5:18 PM EDT) Historical Provider MD IN CLINIC/BEDSIDE ORDERAB LES Final Result documented in this encounter Visit Diagnoses Not on filedocumented in this encounter Additional Health Concerns Assessment Noted Time PHQ-9 Depression Total Score: 1 12/19/19 24 9:09 AM EDT documented as of this encounter Care Teams Bulk Plant Agent Relationship Specialty Start Date End Date Cindy Max FNP [address] [place] [address] PCP - General Family Medicine 05/09/22 documented as of this encounter
--- OUTSIDE RECORDS SUMMARY | 2024-10-11 11:09 | XMS_ITS | Clinical Summary ---
Author Organization [facility] it Address [address] [place] [address] Care Team Providers Care Process Pumper Name Role Phone Unavailable Primary Care Provider Unavailabl e Social History Tobacco Use Types Packs/Day Years Used Date Smoking Tobacco: Never Assessed Sex and Gender Information Value Date Recorded Sex Assigned at Not on file Gender Identity Not on file Sexual Orientation Not on file Plan of Treatment Health Maintenance Due Date Last Done Comments Breast Cancer Screening 1972 DTaP,Tdap,and Td Vaccines (1 - Tdap) 11/19/1991 Hepatitis B Vaccines (1 of 3 - 19+ 3-dose series) 11/19/1991 Cervical Cancer Screening: P ap Smear 1993 Zoster Vaccines (1 of 2) 2022 COVID-19 Vaccine (1 - 2023-2 5 season) 2024 Influenza Vaccine (#1) 2024 HIB Vaccines Aged Out No longer eligi [...] on patient's age to complete this topic MMR Vaccines Aged Out No longer eligi ble based on patient's age to complete this topic Meningococcal ACWY Vaccine Aged Out N o longer eligible based on patient's age to complete this topic Pneumococcal Vaccine: Pediat rics (0 to 5 Years) and At-Risk Patients (6 to 64 Years) Aged Out No longer eligible b ased on patient's age to complete this topic RSV Immunization Patients Un cyrus 20 months Aged Out No longer eligible b ased on patient's age to complete this topic Varicella Vaccines Aged Out No longer eligible based on patient's age to complete this topic
--- OUTSIDE RECORDS SUMMARY | 2024-10-11 11:09 | XMS_ITS | Encounter Summary ---
Author Organization [employer] Address [address] [place] [address] 7 [place] [address] Care Team Providers Care Band Splicer Name Role Phone Cindy Max Primary Care Provider [phone] Reason for Visit * Reason Onset Date Comments Durable Medical Equipment 10/09/2024 Encounter Details Date Type Department Care Team ([facility] Contact Info) Description 10/09/2024 Telephone [facility] MED & PEDS [address] [place], [place] [phone] Cindy Max FNP [address] [place], [place] [phone] Durable Medical Equipment Social History Tobacco Use Types Packs/Day Years [...] encounter Miscellaneous Notes * Telephone Encounter - Nora Celeste LPN - 10/09/2024 9:39 AM EST Rx generated and faxed to [employer] poem writer also provided pt with vendor number for F/U ----- Message from Cindy Max sent at 10/08/2024 6:28 PM EST ----- Please assist with DME request for CPAP machine. Dx: MARILU severe. Thank you! * Telephone Encounter - Nora Celeste LPN - 10/09/2024 9:39 AM EST ----- Message from Cindy Max sent at 10/08/2024 6:28 PM EST ----- Please assist with DME request for CPAP machine. Dx: MARILU severe. Thank you! documented in this encounter Plan of Treatment Upcoming Encounters Date Type Department Care Team (Late st Contact Info) Description 10/11/2024 2:00 PM EST Office Visit [facility] OPTOMETRY [address] [place] [address] Pippa Gr OD [address] [place] [address] documented as of this encounter Visit Diagnoses Not on filedocumented in this encounter Additional Health Concerns Assessment Noted Time PHQ-9 Depression Total Score: 1 12/19/19 24 9:09 AM EDT documented as of this encounter Care Teams Band Splicer Relationship Specialty Start Date End Date Cindy Max FNP [address] [place] [address] PCP - General Family Medicine 05/09/22 documented as of this encounter
[2024-10-11 14:01] LABS: MANUAL DIFF FLAG NO
[2024-10-11 14:21] LABS: Basophils Absolute Auto 0.1 X10*3/uL (0.0-0.2); Eosinophils Absolute Auto 0.1 X10*3/uL (0.0-0.4); Eosinophils Percent Auto 1.6 % (0-4); Hematocrit 41.4 % (37.0-47.0); Hemoglobin 13.4 g/dl (12.0-16.0); Imm Gran Abs Auto 0.02 X10*3/uL (0.00-0.03); Imm Gran Pct Auto 0.3 % (0.0-0.4); Lymphocytes Absolute Auto 2.4 X10*3/uL (1.2-4.9); Lymphocytes Percent Auto 37.6 % (20-40); Mean Corpuscular HGB Conc 32.4 g/dl (31.0-35.0); Mean Corpuscular Hemoglobin 27.4 pg (27.0-33.0); Mean Corpuscular Volume 84.7 fL (80.0-98.0); Mean Platelet Volume 9.8 fL (9.4-12.3); Monocytes Absolute Auto 0.6 X10*3/uL (0.1-1.2); Monocytes Percent Auto 8.7 % (2-11); Neutrophils Absolute Auto 3.2 x10*3/uL (2.0-8.3); Neutrophils Percent Auto 50.8 % (45-73); Platelet Count 317 X10*3/uL (160-400); Red Blood Count 4.89 X10*6/uL (4.20-5.50); Red Cell Distribution Width 13.4 % (11.0-16.0); White Blood Count 6.3 X10*3/uL (4.8-10.8)
[2024-10-11 14:25] LABS: Estimated Average Glucose 114 mg/dL; Hemoglobin A1c % 5.6 % (<6.0); Total Hemoglobin (HGBA1C) 3521.7124 umol/L
[2024-10-11 14:40] LABS: Alanine Aminotransferase 53 U/L (0-31); Albumin Level 4.4 g/dL (3.5-5.0); Alkaline Phosphatase 117 U/L (39-117); Anion Gap 10 (12-20); Aspartate Amino Transferase 45 U/L (5-31); Bilirubin Total 0.7 mg/dL (0.0-1.0); Blood Urea Nitrogen 11 mg/dL (9-16); Calcium 9.2 mg/dL (8.4-10.2); Carbon Dioxide 24 mmol/L (22-29); Chloride 110 mmol/L (96-108); Cholesterol 227 mg/dL (<200); Estimated Glomerular Filt Rate > 60; Glucose Random 89 mg/dL (60-115); HDL Cholesterol 51 mg/dL (>40); LDL Cholesterol Calculated 147 mg/dL (<100); Potassium 3.4 mmol/L (3.3-5.1); Sodium 141 mmol/L (135-145); Total Protein 7.8 g/dL (6.5-8.0); Triglycerides 146 mg/dL (<150)
[2024-10-11 14:58] LABS: Microalbum/Creatinine Ratio Ur 10.8 ug/mg cr (<30)
== END 2024-10-11 08:17 | disposition home or self-care (01) ==
LOC: HO.CHCLDS 08:16
PROVIDERS: Visit Provider Registered Nurse
DX: Z00.00 Encounter for general adult medical examination without abnormal findings (principal)
CPT/HCPCS: 36415; 80053; 80061; 82043; 82570; 83036; 84443; 85025

== ENCOUNTER 2025-05-09 12:05 | Outpatient (REF) | payer OTHER, SELFPAY ==
--- OUTSIDE RECORDS SUMMARY | 2025-05-09 13:05 | XMS_ITS | Clinical Summary ---
Author Organization [facility] Address [address] [place] [address] Care Team Providers Care Brand Sales Consultant Name Role Phone Unavailable Primary Care Provider Unavailabl e Social History Tobacco Use Types Packs/Day Years Used Date Smoking Tobacco: Never Assessed Comments Unknown Sex and Gender Information Value Date Recorded Sex Assigned at Not on file Legal Sex Female 2:57 AM EST Gender Identity Not on file Sexual Orientation Not on file Plan of Treatment Health Maintenance Due Date Last Done Comments Breast Cancer Screening 1972 DTaP,Tdap,and Td Vaccines (1 - Tdap) 11/19/1991 Hepatitis B Vaccines (1 of 3 - 19+ 3-dose series) 11/19/1991 Cervical Cancer Screening: P ap Smear 1993 Pneumococcal Vaccine: 50+ Ye ars (1 of 1 - PCV) 2022 Zoster Vaccines (1 of 2) 2022 COVID-19 Vaccine (2023-2 5 season) 2024 Depression Screening 09/12/2024 Influenza Vaccine (#1) 2025 HIB Vaccines Aged Out No longer eligi [...] patient's age to complete this topic Meningococcal B Vaccine Aged Out No l onger eligible based on patient's age to complete this topic RSV Immunization Patients Un cyrus 20 months Aged Out No longer eligible b ased on patient's age to complete this topic Varicella Vaccines Aged Out No longer eligible based on patient's age to complete this topic
--- OUTSIDE RECORDS SUMMARY | 2025-05-09 13:05 | XMS_ITS | Encounter Summary ---
Author Organization [employer] Address [address] [facility] 7t [place] [address] Care Team Providers Care Thermal Molder Name Role Phone Winter Cindy JULIEN Primary Care Provider [phone] Encounter Details Date Type Department Care Team ([facility] st Contact Info) Description 09/08/2024 Orders Only [facility] MEDICINE [address] [place] [address] Provider, MD Eugene Social History Tobacco Use [...] is your housing situation today? I have maximilianosaravanan hussein 12/19/[address] you [...] as of this encounter Plan of Treatment Not on file documented as of this encounter Procedures Procedure Name Priority Date/Time Associated Diagnosis Comments BIOPSY CERVIX Routine 03/05/2024 5:39 PM EDT BIOPSY CERVIX Routine 12/30/2023 5:18 PM EDT documented in this encounter Results * Biopsy cervix (03/05/2024 5:39 PM EDT) Historical Provider MD IN CLINIC/BEDSIDE ORDERAB LES Final Result * Biopsy cervix (12/30/2023 5:18 PM EDT) us Historical Provider MD IN CLINIC/BEDSIDE ORDERAB LES Final Result documented in this encounter Visit Diagnoses Not on filedocumented in this encounter Additional Health Concerns Assessment Noted Time PHQ-9 Depression Total Score: 1 12/19/19 24 9:09 AM EDT documented as of this encounter Care Teams Thermal Molder Relationship Specialty Start Date End Date Cindy Max FNP [address] [place] [address] PCP - General Family Medicine 05/09/22 documented as of this encounter
--- OUTSIDE RECORDS SUMMARY | 2025-05-09 13:06 | XMS_ITS | Encounter Summary ---
Author Organization [employer] Address [address] [place] [address] 7 [place] [address] Care Team Providers Care Contact Acid Plant Operator Helper Name Role Phone Cindy Max Primary Care Provider [phone] Reason for Visit * Reason Onset Date Comments Prior Authorization 05/03/2025 Encounter Details Date Type Department Care Team ([facility] Contact Info) Description 05/03/2025 Telephone [facility] CHC MED & PEDS [address] [place], [place] [phone] Cindy Max FNP [address] [place] [address] Prior Authorization Social History Tobacco Use Types Packs/Day Years Used Date Smoking Tobacco: Never Passive Smoke Exposure: Never Smokeless Tobacco: Never Alcohol Use Standard Drinks/Week Comments Yes 0 (1 standard drink = 0.6 oz pur e alcohol) Certain Occasions Depression Answer Date Recorded Patient Health Questionnaire-9 Score 1 03/25/2025 Patient Health Questionnaire-9 Score 1 03/25/2025 Last PHQ-9: Questionnaire Data Not on file 0 03/25/2025 Housing Stability Answer Date Recorded What is [...] Date Recorded Patient Health Questionnaire-2 Score 0 03/25/2025 Internet Access Answer Date Recorded Internet Access [...] Telephone Encounter - Nora Celeste LPN - 05/07/2025 9:53 AM EDT Medication awaiting for pt belt picker. Call was made to pt no answer LVM * Telephone Encounter - JULIEN Jackson - 05/06/2025 2:34 PM EDT [employer] (From my notes, I have that [employer] approved from 03/27/25 - 09/11/25. Reference ID# [id number]) Please follow up with pt/pharmacy to help resolve confusion. Thanks! * Telephone Encounter - Olman Appiah - 05/03/2025 1:01 PM EDT Script for Tirzepatide 2.5 MG/0.5ML solution auto-injector requires a prior authorization documented in this encounter Plan of Treatment Not on file documented as of this encounter Visit Diagnoses Not on filedocumented in this encounter Additional Health Concerns Assessment Noted Time PHQ-9 Depression Total Score: 1 03/25/20 25 3:13 PM EDT documented as of this encounter Care Teams Contact Acid Plant Operator Helper Relationship Specialty Start Date End Date Cindy Max FNP [address] [place] [address] PCP - General Family Medicine 05/09/22 documented as of this encounter
--- OUTSIDE RECORDS SUMMARY | 2025-05-09 13:06 | XMS_ITS | Encounter Summary ---
Author Organization [employer] Address [address] [place] [address] 7 [place] [address] Care Team Providers Care Defensive Line Coach Name Role Phone Cindy Max Primary Care Provider Encounter Details Date Type Department Care Team ([facility] Contact Info) Description 05/06/2025 Orders Only [facility] CHC MED & PEDS [address] [place], [place] [phone] Cindy Max FNP [address] [place] [address] Social History Tobacco Use Types Packs/Day Years [...] documented as of this encounter Care Teams Defensive Line Coach Relationship Specialty Start Date End Date Cindy Mxa FNP [address] [place] [address] PCP - General Family Medicine 05/09/22 documented as of this encounter
--- OUTSIDE RECORDS SUMMARY | 2025-05-09 13:06 | XMS_ITS | Encounter Summary ---
Author Organization [employer] Address [address] [place] [address] Care Team Providers Care Printing Agent Name Role Phone Cindy Max Primary Care Provider [phone] Reason for Visit * Reason Onset Date Comments Med Refill 04/25/2025 Encounter Details Date Type Department Care Team ([facility] Contact Info) Description 04/25/2025 Telephone [facility] MED & PEDS [address] [place], [place] [phone] Cindy Max FNP [address] [place], [place] [phone] Med Refill Social History Tobacco Use Types Packs/Day Years [...] encounter Miscellaneous Notes * Telephone Encounter - Risa Klein LPN - 04/25/2025 1:15 PM EDT Medication was sent to [facility] on 03/29/25 with 2 refills. * Telephone Encounter - Michelle Crouch - 04/25/2025 1:11 PM EDT TC from pt requesting medication refill. Medications needing refill : Tirzepatide 2.5 MG/0.5ML solution auto-injector To be sent to: [facility] documented in this encounter Plan of Treatment Not on file documented as of this encounter Visit Diagnoses Not on filedocumented in this encounter Additional Health Concerns Assessment Noted Time PHQ-9 Depression Total Score: 1 03/25/20 25 3:13 PM EDT documented as of this encounter Care Teams Printing Agent Relationship Specialty Start Date End Date Cindy Max FNP [address] [place] [address] PCP - General Family Medicine 05/09/22 documented as of this encounter
--- OUTSIDE RECORDS SUMMARY | 2025-05-09 13:06 | XMS_ITS | Encounter Summary ---
Author Organization [employer] Address [address] [place] [address] 7 [place] [address] Care Team Providers Care Mechanic Senior Name Role Phone MargretCindy alvares JULIEN Primary Care Provider [phone] Reason for Visit * Reason Onset Date Comments No Show 05/07/2025 Encounter Details Date Type Department Care Team ([facility] Contact Info) Description 05/07/2025 Telephone [facility] CHC MED & PEDS [address] [place], [place] [phone] Karoline Pedraza MD [address] [place] [address] No Show Social History Tobacco Use Types Packs/Day Years [...] encounter Miscellaneous Notes * Telephone Encounter - Vijaya Dash - 05/07/2025 11:55 AM EDT No show 05/07/25 documented in this encounter Plan of Treatment Not on file documented as of this encounter Visit Diagnoses Not on filedocumented in this encounter Additional Health Concerns Assessment Noted Time PHQ-9 Depression Total Score: 1 03/25/20 25 3:13 PM EDT documented as of this encounter Care Teams Mechanic Senior Relationship Specialty Start Date End Date Cindy Max FNP [address] [place] [address] PCP - General Family Medicine 05/09/22 documented as of this encounter
--- OUTSIDE RECORDS SUMMARY | 2025-05-09 13:06 | XMS_ITS | Clinical Summary ---
Author Organization [employer] Address [address] [facility] [address] [place] [address] Care Team Providers Care Building Rental Superintendent Name Role Phone MargretdiaCindy Primary Care Provider [phone] Allergies No known active allergies Medications * This document contains information received from the source organization and may not represent a complete record from that organization. guaiFENesin (Mucinex) 600 MG 12 hr tablet Take 1 tablet by mouth every 12 (twelve) hours. 07/07/20 22 Active sodium chloride (Harney) 0.65 % nasal spray 1-2 spray on each nostril every 2- 3 hours as needed for nasal congestion 07/07/20 22 Active amLODIPine (Norvasc) 5 MG tablet Take 5 mg by mouth in the morning. 09/24/19 23 Active carvedilol (Coreg) 25 MG tabletIndicati ons:Hypertensi on, unspecified type TAKE 1 TABLET BY MOUTH EVERY DAY WITH FOOD 90 tablet 3 05/17/20 24 Active losartan (Cozaar) 100 MG tablet Take 1 tablet (100 mg) by mouth Once per day. 90 tablet 3 10/05/19 25 Active famotidine (Pepcid) 20 MG tabletIndicati ons:Mild acid reflux Take 1 tablet (20 mg) by mouth if needed in the morning and at bedtime for heartburn or indigestion. 60 tablet 1 03/25/20 25 2025 Active valACYclovir (Valtrex) 1 g tabletIndicati ons:Genital herpes simplex, unspecified site Take 1 tablet by oral route daily for 5 days at start of outbreak 5 tablet 5 03/25/20 25 Active acyclovir (Zovirax) 5 % ointmentIndica tions:Genital herpes simplex, unspecified site Apply topically 5 (five) times a day for four days as needed for cold sore. Space applications every 3 hours. 15 g 1 03/25/20 25 Active Tirzepatide-We ight Management (Zepbound) 5 MG/0.5ML solution auto-injector Inject 0.5 mL (5 mg) under the skin 1 (one) time per week. 2 mL 2 05/06/20 25 Active Tirzepatide 2.5 MG/0.5ML solution auto-injectorI ndications:Obe sity (BMI 30-39.9) Inject 2.5 mg under the skin 1 (one) time per week. 2 mL 2 03/29/20 25 2024 Discontinued(D uplicate order (will not trigger notification to Pharmacy)) Active Problems Problem Noted Date Diagnosed Date Transaminitis 03/26/2025 Overview (03/26/2025): Lab Results Component Value Date AST 45 (H) 10/11/2024 ALT 53 (H) 10/11/2024 TOTPROTEIN 7.8 10/11/2024 ALB 4.4 10/11/2024 ALP 117 10/11/2024 TOTALBILIRUB 0.7 10/11/2024 Assessment & Plan (03/26/2025 2:20 PM EDT): -Denies history of excess alcohol consumption -Reviewed lifestyle interventions including routine physical activity, diet rich in fruits, vegetables, and healthy fats. Limited/no alcohol use. May consider coffee intake (3 cups per day) -Plan to repeat labs in 3 months. Consider US with elastography if persistently elevated after 3-6 months & FIB4 > 1.3. Left ventricular hypertrophy 03/26/2025 Overview (03/26/2025): TTE 11/02/2024 (Dr. Nickerson). Findings: mild concentric left ventricular hypertrophy. Overall left ventricular systolic function is mild-moderately impaired with an EF between 40 to 45%. Grade 1 diastolic dysfunction with an impaired relaxation filling pattern. Following with Cards - HFCCA Obesity (BMI 30-39.9) 03/26/2025 Assessment & Plan (03/26/2025 2:39 PM EDT): Body mass index is 32.61 kg/m . - Encouraged lifestyle interventions including at least 150 minutes weekly of physical activity and food intake rich in vegetables, protein, and fiber. Limit simple sugars and transfats. - Pharmacotherapy: tirzepatide rx sent to the pharmacy. Reviewed med safety and SE. Aware will likely need PA / review though insurance to determine if they will cover cost. - Additional considerations: Severe MARILU --> tirzepatide is an FDA approved medication for the treatment of MARILU. Also with currently uncontrolled hypertension despite med management with 3 separate medications as well as following with revenue specialist. Diverticulosis 12/22/2023 Overview (12/22/2023): Noted on CT abd/pelvis May 2023 Degenerative disc disease, lumbar 12/22/2023 Overview (10/08/2024): DDD of lumbar region noted as incidental finding on CT abd/pelvis ordered May 2023 by [facility] Lumbar XR March 2024: Fgzwimsd-ca-dbkqgo degenerative disc disease and facet arthropathy at L5-S1. Completed physical therapy with improvement in symptoms in 2023 Followed by [facility] Obstructive sleep apnea 12/22/2023 Overview (10/08/2024): 08/12/23: [facility] Home Sleep study report. Diagnosed with MARILU, with recommendation for pt to return for an in lab sleep study with CPAP/BiPAP and transcutaneous CO2 monitoring. 01/26/24: Hospital sleep study at [facility]. Titration study. Diagnosed with Severe MARILU. Pt [...] symptoms Vitamin D deficiency 06/26/2023 Overview (06/26/2023): Last Vit D 17 ng/mL 11/08/22 Continues with Vit D Supplement - 2000 units daily Assessment & Plan (06/26/2023 12:11 PM EDT): Repeat Vit D lab Routine health maintenance 11/19/2022 Overview (03/26/2025): Optometry: referred to [facility] 10/05/24 Dental: discuss at follow up BMD: starting at 67 y/o Routine Cancer Screening Breast CA: BI-RADs 13 Aug 2021 Cervical CA: ASCUS HPV neg Sep 2022, NILM / HPV Pos Sep 2023. February 2024 - Colposcopy w/ Dr. Adam brown for dysplasia. Plan for co-testing in 12 months. Colon CA: cologuard neg 11/16/24 Prediabetes 11/19/2022 Overview (10/05/2024): Lab Results Component [...] Overview (11/07/2022): -EMG confirmed 2021 -Referred to [facility] Ortho 11/05/22 Atypical chest pain 08/17/2022 Subdural [...] mucosa; negative for dysplasia. Cont following with [facility] B2B APPOINTMENT SETTER Hyperlipidemia 07/09/2021 Overview (03/26/2025): -ASCVD risk: 2.2% Sep 2024 -Lifestyle interventions encouraged Lab Results Component Value Date CHOL 227 (H) 10/11/2024 CHOL 254 (H) 06/08/2023 TRIG 146 10/11/2024 TRIG 200 (H) 06/08/2023 TRIG 158 (H) 11/08/2022 HDL 51 10/11/2024 HDL 50 06/08/2023 LDLCHOLCAL 147 (H) 10/11/2024 LDLCHOLCAL 164 (H) 06/08/2023 Assessment & Plan (06/26/2023 12:07 PM EDT): Repeat FLP Primary hypertension 06/30/2021 Overview (03/26/2025): -Following with [facility]. -BP Goal <130/80 mmHg - TTE Oct 2024 demonstrated mild concentric left ventricular hypertrophy. EF 40- 45%. -Continue w/ current regimen through Cards: Carvedilol 25mg QAM Losartan 100mg QAM Amlodipine 5mg at bedtime -Encourage low salt diet and daily exercise. ED precautions reviewed Assessment & Plan (03/26/2025 2:23 PM EDT): Elevated in office, although suspect may be secondary to acute stressors. Plan to monitor home blood pressure readings and follow-up with PCP or cardiology if above goal. Assessment & Plan (10/08/2024 6:34 PM EST): -Well controlled -Follow up precautions Assessment & Plan (03/30/2024 7:55 AM EDT): -Elevated in office, but well controlled per home readings -Follow up precautions Assessment & Plan (12/22/2023 11:31 AM EDT): -Well controlled per home readings -Intermittent COLEMAN, consider deconditioning vs cardiac vs respiratory vs other -Echo ordered 12/22/23 for further eval -Follow up with Cards Bilateral nephrolithiasis 06/30/2021 Overview (12/22/2023): Following with [facility] Urology - JULIEN Mcguire History of passing approx 4 kidney stones over lifetime, with first one starting at 14y/o Encouraged adequate hydration 12/12/23: Renal US BL ordered by Ruthie VICTORIA. Impression - bilateral nephrolithiasis, borderline mild left hydronephrosis. (Kidney stones 2mm in diameter) Assessment & Plan (03/26/2025 2:34 PM EDT): Plan: Repeat renal ultrasound, refer to reestablish with urology. Encouraged good hydration, OTC analgesics as needed. Follow-up/ED precautions. Assessment & Plan (11/07/2022 12:40 PM EST): [...] Assessment & Plan (06/26/2023 12:09 PM EDT): Continues on daily Vit D supplement Encounters * This document contains information received from the source organization and may not represent a complete record from that organization. Date Type Department Care Team Description 05/07/2025 Telephone [facility] [address] [place] [address] Karoline Pedraza MD No Show 05/06/2025 Orders Only [facility] [address] [place] [address] Cindy Max FNP 05/03/2025 Telephone [facility] [address] [place] [address] Cindy Max FNP Prior Authorization 04/25/2025 Telephone [facility] [address] [place] [address] Cindy Max FNP Med Refill 04/09/2025 Telephone [facility] [address] [place] [address] Cindy Max FNP No Show 03/29/2025 Orders Only [facility] [address] [place] [address] Cindy Max FNP Obesity (BMI 30-39.9) 03/27/2025 Telephone [facility] [address] [place] [address] Cindy Max FNP 03/25/2025 3:15 PM EDT Office Visit [facility] [address] [place] [address] Cindy Max FNP Bilateral nephrolithiasis (Primary Dx); Encounter for screening mammogram for malignant neoplasm of breast; Acute stress reaction; Dietary counseling; Exercise counseling; Transaminitis; Mixed hyperlipidemia; Primary hypertension; Left ventricular hypertrophy; Routine health maintenance; Obesity (BMI 30-39.9); Genital herpes simplex, unspecified site; Mild acid reflux 03/25/2025 Travel from Last 3 Months Immunizations Immunization Administration Dates Next Due Influenza injectable quadrivalent [...] Sign Reading Time Taken Comments Blood Pressure 149/94 03/25/2025 3:09 PM EDT Pulse 87 03/25/2025 3:09 PM EDT Temperature 37.1 C (98.7 F) 03/25/2025 3:09 PM EDT Respiratory Rate 16 03/25/2025 3:09 PM EDT Oxygen Saturation 98% 03/26/2024 1:44 PM EDT Inhaled Oxygen Concentration - - Weight 68.9 kg (152 lb) 03/25/2025 3:09 PM EDT Height 145.4 cm (4' 9.25 ) 10/05/2024 1:43 PM ES T Body Mass Index 32.61 10/05/2024 1:43 PM EST Plan of Treatment Health Maintenance Due Date Last Done Comments CT Colonography 1972 Dental Oral Exam 1970 Dental Prophylaxis 1970 Dental X-Ray: Bitewings 1970 Dental X-Ray: Full Mouth 1972 FIT 1970 FOBT 1970 Sigmoidoscopy 1970 Family Planning (PISQ) 11/19/1987 Hepatitis B Vaccines (1 of 3 - 19+ 3-dose series) 11/19/1991 Pneumococcal Vaccine: 50+ Years (1 of 1 - PCV) 2022 Mammogram 09/10/2023 09/10/2021 Colonoscopy 09/21/2023 COVID-19 Vaccine ( season) 2024 03/11/2021, 02/18/2021 Cervical Cancer Screening 03/05/2025 HPV/Cotest 03/05/2025 09/20/2023, 09/12, 09/07/2021 Pap Smear 03/05/2025 09/20/2023, 09/12, 09/07/2021, Additional history exists Influenza Vaccine (#1) 2025 06/30/2021 SDOH Screening 09/26/2025 09/26/2024 Diabetes: Hemoglobin A1C 10/11/2025 025, 06/08/2023, 11/08/2022, Additional history exists Alcohol/Substance Use Screening 03/25/2026 03/25/2025 Depression Screening 03/25/2026 03/25/2025, 03/25/20 25 Disability Screening 03/25/2026 03/25/2025 Tobacco Screening 03/25/2026 03/25/2025 Colorectal Cancer Screening 11/17/2027 FIT DNA/Cologuard 11/17/2027 11/16/2024 Lipid Panel 10/11/2029 10/11/2024, 05/14, 11/08/2022, Additional history exists DTaP/Tdap/Td Vaccines (2 - Td or Tdap) [...] Procedure Name Priority Date/Time Associated Diagnosis Comments LAB COLOGUARD COLON CANCER SCREEN Routine 11/16/2024 8:08 AM EST Screening for colon cancer HEMOGLOBIN A1C Routine 10/11/2024 8:17 AM EST Routine health maintenance LIPID PANEL, STANDARD Routine 10/11/2024 8:17 AM EST Routine health maintenance HPV MRNA E6/E7 REFLEX TO HPV 16, 18/45 Routine 09/20/2023 3:09 PM EST PAP SMEAR Routine 09/20/2023 3:09 PM EST Cervical cancer screening HEPATITIS C AB W/REFL TO HCV RNA, QN, PCR Routine 11/08/2022 8:39 AM EST Routine health maintenance HIV 1 RNA, QN PCR W/RFL PRETTY (RTI,PI,INTEGRASE) Routine 11/08/2022 8:39 AM EST Routine health maintenance MAMMOGRAM GENERIC Routine 09/10/2021 9:3 0 AM EST from Last 3 Months or Most Recently Relevant to Health Maintenance Results * Cologuard?? colon cancer screening (11/16/2024 8:08 AM EST) Cologuard Result Negative Negative 11/22/19 4:29 AM EDT [facility] (CLIA #:[id number]) Comment: NEGATIVE TEST RESULT. A negative Cologuard result indicates a low likelihood that a colorectal cancer (CRC) or advanced adenoma (adenomatous polyps with more advanced pre-malignant features) is present. The chance that a person with a negative Cologuard test has a colorectal cancer is less than 1 in 1500 (negative predictive value >99.9%) or has an advanced adenoma is less than 5.3% (negative predictive value 94.7%). These data are based on a prospective cross-sectional study of 10,000 individuals at average risk for colorectal cancer who were screened with both Cologuard and colonoscopy. (Lorrie Lockett al, N Engl J Med 2014;370(14):7868-2893) The normal value (reference range) for this assay is negative. COLOGUARD RE-SCREENING RECOMMENDATION: Periodic colorectal cancer screening is an important part of preventive healthcare for asymptomatic individuals at average risk for colorectal cancer. Following a negative Cologuard result, the [place] [employer] and U.S. Multi-Society Task Force screening guidelines recommend a Cologuard re-screening interval of 3 years. References: [place] [employer] Guideline for Colorectal Cancer Screening: https://www.cancer.org/cancer/ogeqn-drsntj-cdpmbg/zawkkixcb-jgfrngzdq-spsegjc/ac s-rec ommendations.html.; Regis DK, John CR, Ronan VictorK, Colorectal Cancer Screening: Recommendations for Physicians and Patients from the U.S. Multi-Society Task Force on Colorectal Cancer Screening , Am J Gastroenterology 2017; 112:4914-7802. TEST DESCRIPTION: Composite algorithmic analysis of stool DNA-biomarkers with hemoglobin immunoassay. Quantitative values of individual biomarkers are not reportable and are not associated with individual biomarker result reference ranges. Cologuard is intended for colorectal cancer screening of adults of either sex, 45 years or older, who are at average-risk for colorectal cancer (CRC). Cologuard has been approved for use by the U.S. FDA. The performance of Cologuard was established in a cross sectional study of average-risk adults aged 50-84. Cologuard performance in patients ages 45 to 49 years was estimated by sub-group analysis of near-age groups. Colonoscopies performed for a positive result may find as the most clinically significant lesion: colorectal cancer [4.0%], advanced adenoma (including sessile serrated polyps greater than or equal to 1cm diameter) [20%] or non- advanced adenoma [31%]; or no colorectal neoplasia [45%]. These estimates are derived from a prospective cross-sectional screening study of 10,000 individuals at average risk for colorectal cancer who were screened with both Cologuard and colonoscopy. (Lorrie Todd et al, N Engl J Med 2014;370(14):4210-9954.) Cologuard may produce a false negative or false positive result (no colorectal cancer or precancerous polyp present at colonoscopy follow up). A negative Cologuard test result does not guarantee the absence of CRC or advanced adenoma (pre-cancer). The current Cologuard screening interval is every 3 years. ([place] [employer] and U.S. Multi-Society Task Force). Cologuard performance data in a 10,000 patient pivotal study using colonoscopy as the reference method can be accessed at the following location: www.Fit&Color.EaglEyeMed/results. Additional description of the Cologuard test process, warnings and precautions can be found at www.AHS PharmStat.com. Stool specimen (specimen) Rectal contents / Unknown 11/16/2024 8:08 AM EST 11/17/2024 3:34 PM EST Cindy Max [facility] MOLECULAR DIAGNOSTICS ORDE RABLES Final Result [facility] (CLIA #:[id number]) [address] [place] [address], * Hemoglobin A1c (10/11/2024 8:17 AM EST) Hemoglobin A1c 5.6 <6.0 % [facility] Comment:Hemoglobin A1C Refer ence Range Adults: 4.8 - 6.0 % Non diabetic: < 6.0 % Goal: < 7.0 %Additional Action Suggested: > 8.0 %Note: Hemoglobin A1c results are invalid for patients with abnormal amounts of HbF. Blood transfusions may impact the HbA1c concentration in the patient sample. Estimated Average Glucose 114 mg/dL [facility] Comment:eAG = Estimated ave rage glucose which is %A1C expressed asaverage glucose, using the formula of the G1V-OfndqqrScayvng Glucose study (ADAG), Diabetes Care, Vol.31,#8,Apr. 2007 Blood Venous blood specimen / Unknown 10/11/2024 8:17 AM EST 10/11/2024 1:58 PM EST [facility] BLOOD ORDERABLES Final Res ult [facility] [address] [place] [phone] [phone] * (ABNORMAL) Lipid Panel, Standard (10/11/2024 8:17 AM EST) Triglycerides 146 <150 mg/dL [facility] Comment:Desirable Triglyceri de: less than 150 mg/dLBorderline High Triglyceride 150-199 mg/dLHigh Triglyceride: 200-499 mg/dLVery High Triglyceride: greater than or equal to 5OO mg/dL Cholesterol 227(H) <200 mg/dL [facility] Comment:Desirable Cholestero l: less than 200 mg/dLBorderline High Cholesterol: 200-239 mg/dLHigh Cholesterol: greater than 239 mg/dL LDL Cholesterol Calculated 147(H) <100 mg/dL [facility] Comment:Desirable LDL: less than 100 mg/dLNear Optimal/Above Optimal LDL: 110- 129 mg/dLBorderline High LDL: 130-159 mg/dLHigh LDL: 160-189 mg/dLVery High LDL: greater than or equal to 190 mg/dL HDL Cholesterol 51 >40 mg/dL [facility] Comment:Desirable HDL: great er than 40 mg/dL Note: This HDL assay may give artificially low results in patients with liver disease. Blood Venous blood specimen / Unknown 10/11/2024 8:17 AM EST 10/11/2024 2:01 PM EST us Cindy Max COORDINATE MEASURING MACHINE PROGRAMMER LAB BLOOD ORDERABLES Final Res ult [facility] [address] [place] [phone] * (ABNORMAL) HPV mRNA E6/E7 w/Reflex to HPV Genotypes 16, 18/45 (09/20/2023 3:09 PM EST) HPV nRNA E6/E7 Detected(A ) Not Detected [facility] Comment:Methodology: Transcr iption-Mediated AmplificationThis assay detects E6/E7 viral messenger RNA (mRNA) from 14high-risk HPV types (16,18,31,33,35,39,45,51,52,56,58,59,66,68).Cervical sources are required for HPV testing.If a vaginal source from a patient who has had atotal hysterectomy with removal of cervix wassubmitted, please contact the testing laboratoryfor alternative testing options.For additional information, please refer tohttp://education.JouleX/faq/XOD291h4(This link if provided for information/educational purposes only.)THIS TEST WAS PERFORMED AT:[facility] [employer] [place] [phone] STEWART MD HPV 16 RNA NOT DETECTED NOT DETECTED [facility] HPV 18/45 RNA NOT DETECTED NOT DETECTED [facility] Comment:Methodology: Transcr iption Mediated AmplificationCervical sources are required for HPV testing.If a vaginal source from a patient who has had atotal hysterectomy with removal of cervix wassubmitted, please contact the testing laboratoryfor alternative testing options.THIS TEST WAS PERFORMED AT:[employer] [employer] [place] [phone] STEWART MD 09/20/2023 3:09 PM EST 09/21/2023 10:22 AM EST us Helen Ellis [facility] CYTOLOGY ORDERABLES F inal Result [facility] [address] [place] [phone] * Pap Smear (09/20/2023 3:09 PM EST) Swab Cervix uteri structure / Unknown 09/20/2023 3:09 PM EST 09/21/2023 10:22 AM EST Narrative [facility] - 09/29/2023 8:40 AM EST ----- ------- Name: Nazia Corona Age/Sex: 52/F : 1970 Unit#: [id number] Attend Dr: Re09/20/23 Status: PRE REF [facility] Disch: ----- ------- SPEC : [id number] RECD: 09/21/23 STATUS: YUDY HEAD NUM: [id number] EDILMA: 09/20/23-[address]: HELEN ELLIS [facility] ENTERED: 09/21/23-7600 SP TYPE: Pap Smr OTHR DR: ORDERED: Pap Smear, PAP path review Interpretation General Category: Negative for intraepithelial lesion/malignancy. Adequacy: Endocervical component present. Comment: Shift in vaginal alfa. HPV mRNA E6/E7: DETECTED This assay detects E6/E7 viral messenger RNA (mRNA) from 14 high-risk HPV types (16, 18, 31, 33, 35, 39, 45, 51, 52, 56, 58, 59, 66, 68) HPV Type 16 RNA: Not Detected HPV Type 18/45 RNA: Not Detected HPV testing performed by [facility], [place], [place]. See reference laboratory portion of the EMR for entire report. Clinical Information LMP: Postmenopausal Previous PAP test: 09/2022, ASCUS HPV- Other history: Hx of NIL/HPV pos Material Received ThinPrep-Cervical ----- ------- Signed (signature on file) Felix Carmona MD 09/29/23 0840 ----- ------- END OF REPORT Helen Ellis CNM LAB CYTOLOGY ORDERABLES F inal Result Performing Organization Address City/[facility]/ZIP Co de Phone Number [facility] [address] [place] [address] [phone] * HIV-1 RNA, Quantitative, Real-Time PCR with Reflex to Genotype (RTI, PI, Integrase) (11/08/2022 8:39 AM EST) HIV 1 RNA, QN PCR NOT DETECTED copies/mL [facility], HIV 1 RNA, QN PCR NOT DETECTED Log copies/mL [facility], Comment: REFERENCE RANGE: NOT DETECTED copies/mL NOT DETECTED Log copies/mL This test was performed using Real-Time Polymerase Chain Reaction. Reportable range is 20 to 10,000,000 copies/mL (1.30-7.00 Log copies/mL). 11/08/2022 8:39 AM EST 11/08/2022 8:39 AM EST Narrative [facility] - 11/11/2022 12:22 AM EST FASTING:YES FASTING: YES Cindy Max COORDINATE MEASURING MACHINE PROGRAMMER LAB BLOOD ORDERABLES Final Res ult Performing Organization Address City/[facility] Co de Phone Number [facility] [address], [place] [address] [facility], [address] [place] [phone] * Hepatitis C Antibody with Reflex to HCV, RNA, Quantitative, Real-Time PCR (11/08/2022 8:39 AM EST) Pathologist [facility] Hepatitis C Antibody NON-REACT SHIRLEY NON-REACT SHIRLEY [facility] [place] [facility] Index 0.06 <1.00 [facility] Comment: HCV antibody was non-reactive. There is no laboratory evidence of HCV infection. In most cases, no further action is required. However, if recent HCV exposure is suspected, a test for HCV RNA (test code 48879) is suggested. For additional information please refer to http://education.[employer].EaglEyeMed/faq/QGG39w0 (This link is being provided for informational/ educational purposes only.) Blood Venous blood specimen / Unknown 11/08/2022 8:39 AM EST 11/08/2022 8:39 AM EST Narrative [facility] - 11/11/2022 12:22 AM EST FASTING:YES FASTING: YES us Cindy Max COORDINATE MEASURING MACHINE PROGRAMMER LAB BLOOD ORDERABLES Final Res ult [facility] [address] [place] [address], [facility], [place] [address] [facility] [address] [facility], ([address]) [place] [address] * Mammography Report 1 (09/10/2021 9:30 AM EST) Anatomical Region Laterality Modality Breast Bilateral Mammography 09/10/2021 9:30 AM EST Narrative 09/14/2021 8:40 AM EST Refer to the Notes tab for result details [facility] Procedure: Mammography Report 1 Procedure Note Provider, MD Eugene - 12/05/2022 Refer to the Notes tab for result details [facility] Procedure: Mammography Report 1 us Jenny Guajardo COORDINATE MEASURING MACHINE PROGRAMMER IMG BI PROCEDURES Final Result from Last 3 Months or Most Recently Relevant to Health Maintenance Insurance [facility] 3 DENTAL - HSN PARTIAL (MEDICAID) Care Teams Building Rental Superintendent Relationship Specialty Start Date End Date Cindy Max FNP [address] [place] [phone] PCP - General Family Medicine 05/09/22
--- OUTSIDE RECORDS SUMMARY | 2025-05-09 13:06 | XMS_ITS | Encounter Summary ---
Author Organization [employer] Address [address] [place] [address] 7 [place] [address] Care Team Providers Care Occupational Therapy Director Name Role Phone Cindy Max Primary Care Provider [phone] Encounter Details Date Type Department Care Team ([facility] Contact Info) Description 03/29/2025 Orders Only [facility] [address] [place], [place] [phone] Cindy Max FNP [address] [place] [address] Obesity (BMI 30-39.9) Social History Tobacco Use Types Packs/Day Years [...] as of this encounter Visit Diagnoses Diagnosis Obesity (BMI 30-39.9) documented in this encounter Additional Health Concerns Assessment Noted Time PHQ-9 Depression Total Score: 1 03/25/20 25 3:13 PM EDT documented as of this encounter Care Teams Occupational Therapy Director Relationship Specialty Start Date End Date Cindy Max FNP [address] [place] [address] PCP - General Family Medicine 05/09/22 documented as of this encounter
== END 2025-05-09 12:06 | disposition home or self-care (01) ==
LOC: HO.MAMMO 12:05
PROVIDERS: PCP Registered Nurse; Visit Provider Registered Nurse
DX: Z12.31 Encounter for screening mammogram for malignant neoplasm of breast (principal)
CPT/HCPCS: 77063; 77067

== ENCOUNTER → 2025-05-09 12:15 | Outpatient (BNV) | payer OTHER, SELFPAY | PROVIDERS: PCP Registered Nurse; Visit Provider Radiology Body Imaging | DX: Z12.31 Encounter for screening mammogram for malignant neoplasm of breast (principal) | CPT/HCPCS: 77063; 77067 ==

== ENCOUNTER 2025-05-17 12:55 | Outpatient (REF) | payer OTHER, SELFPAY ==
--- NOTE | ~2025-05-17 | MM_ITS ---
EXAMINATION(S): 1. MM DIAGNOSTIC DIGITAL BREAST TOMOSYNTHESIS, LEFT 2. Targeted ultrasound of the left breast CLINICAL INFORMATION: Callback from screening for left breast focal asymmetry in the far posterior depth. Most recent screening mammogram was the first one following bilateral reduction mammoplasty in 2022. COMPARISON: May 09, 2025 TECHNIQUE: Digital breast tomosynthesis is performed in full field ML 90 degrees along with computer-aided detection (CAD). Synthesized 2D images are generated from the tomosynthesis. Spot compression tomosynthesis images were also obtained. FINDINGS: BREAST COMPOSITION: There are scattered areas of fibroglandular density (ACR BI-RADS breast composition Category b). LEFT BREAST: Status post reduction mammoplasty. Previously suggested focal asymmetry is pliable with spot compression and most likely represented overlapping fibroglandular breast tissue and/or related to the prior surgery. MM/MM tomosynthesis added views L IMPRESSION: LEFT BREAST: Benign, no mammographic evidence of malignancy. Normal interval follow-up is recommended in 12 months. ASSESSMENT: BI-RADS 2 - Benign Findings RECOMMENDATION: 1 year F/U Results were provided to the patient at time of visit by the technologist. This patient's information was entered into a reminder system with a target due date for their next mammogram. Electronically signed by: Humphrey Varghese MD 05/17/2025 04:15 PM EDT
--- OUTSIDE RECORDS SUMMARY | 2025-05-17 13:09 | XMS_ITS | Encounter Summary ---
Author Organization [employer] Address [address] [facility] [address] [place] [address] Care Team Providers Care Banquet Waiter/Waitress Name Role Phone Winter Cindy JULIEN Primary Care Provider [phone] Encounter Details Date Type Department Care Team ([facility] st Contact Info) Description 09/08/2024 Orders Only [facility] MEDICINE [address] [place] [address] Provider, MD Eugene Social History Tobacco Use [...] documented as of this encounter Care Teams Banquet Waiter/Waitress Relationship Specialty Start Date End Date Cindy Max FNP [address] [place] [address] PCP - General Family Medicine 05/09/22 documented as of this encounter
--- OUTSIDE RECORDS SUMMARY | 2025-05-17 13:09 | XMS_ITS | Encounter Summary ---
Author Organization [employer] Address [address] [place] [address] 7 [place] [address] Care Team Providers Care Magnet Maker Name Role Phone Cindy Max Primary Care Provider [phone] Encounter Details Date Type Department Care Team ([facility] Contact Info) Description 03/29/2025 Orders Only [facility] [address] [place], [place] [phone] Cindy Max FNP [address] [place] [address] Obesity (BMI 30-39.9) Social History Tobacco Use [...] documented as of this encounter Care Teams Magnet Maker Relationship Specialty Start Date End Date Cindy Max FNP [address] [place] [address] PCP - General Family Medicine 05/09/22 documented as of this encounter
--- OUTSIDE RECORDS SUMMARY | 2025-05-17 13:09 | XMS_ITS | Clinical Summary ---
Author Organization [facility] Address [address] [place] [address] Care Team Providers Care Gas Dispenser Name Role Phone Unavailable Primary Care Provider [...] 2022 Zoster Vaccines (1 of 2) 2022 Depression Screening 09/12/2024 COVID-19 Vaccine (1 - 2023-2 5 season) 2025 Influenza Vaccine (#1) 2025 HIB Vaccines Aged [...]
--- OUTSIDE RECORDS SUMMARY | 2025-05-17 13:09 | XMS_ITS | Encounter Summary ---
Author Organization [employer] Address [address] [place] [id number] Care Team Providers Care Manager Body Name Role Phone Cindy Max Primary Care Provider [phone] Reason for Visit * Reason Onset Date Comments Med Refill 04/25/2025 Encounter Details Date Type Department Care Team ([facility] Contact Info) Description 04/25/2025 Telephone [facility] MED & PEDS [address] [place], [place] [phone] Cindy Max FNP [address] [place], [place] [phone] Med Refill Social History Tobacco Use Types [...] 1:15 PM EDT Medication was sent to [facility] on 03/29/25 with 2 refills. * Telephone Encounter - Michelle Crouch - 04/25/2025 1:11 PM EDT TC from pt requesting medication refill. Medications needing refill : Tirzepatide 2.5 MG/0.5ML solution auto-injector To be sent to: [facility] documented in this encounter Plan of Treatment Not on file documented as of this encounter Visit Diagnoses Not on filedocumented in this encounter Additional Health Concerns Assessment Noted Time PHQ-9 Depression Total Score: 1 03/25/20 25 3:13 PM EDT documented as of this encounter Care Teams Manager Body Relationship Specialty Start Date End Date Cindy Max FNP [address] [place] [id number] PCP - General Family Medicine 05/09/22 documented as of this encounter
--- OUTSIDE RECORDS SUMMARY | 2025-05-17 13:09 | XMS_ITS | Clinical Summary ---
Author Organization [employer] Address [address] [facility] [address] [place] [address] Care Team Providers Care Retail Sales Assistant Name Role Phone MargretdiaCindy Primary Care Provider Allergies No known active allergies Medications * This document contains information received from the source organization and may not represent a complete record from that organization. guaiFENesin (Mucinex) 600 MG 12 hr tablet Take 1 tablet by mouth every 12 (twelve) hours. 07/07/20 22 Active sodium chloride ([place]) 0.65 % nasal spray 1-2 spray on [...] separate medications as well as following with computer systems software engineer. Diverticulosis 12/22/2023 Overview (12/22/2023): Noted on CT abd/pelvis May 2023 Degenerative disc disease, lumbar 12/22/2023 Overview (10/08/2024): DDD of lumbar region noted as incidental finding on CT abd/pelvis ordered May 2023 by [facility] Lumbar XR March 2024: Kaffoszp-rl-kljrzi degenerative disc disease and facet arthropathy at L5-S1. Completed physical therapy with improvement in symptoms in 2023 Followed by [facility] Obstructive sleep apnea 12/22/2023 Overview (10/08/2024): 08/12/23: [facility] Sleep [facility] report. Diagnosed with MARILU, with recommendation for pt to return for an in lab sleep study with CPAP/BiPAP and transcutaneous CO2 monitoring. 01/26/24: Hospital sleep study at [facility]. Titration study. Diagnosed with Severe MARILU. Pt to be started on CPAP 8 cm of H20 with heated humidifier DME request 02/03/24 Re-request sent on 10/08/24 with new insurance Assessment & Plan (03/30/2024 7:42 AM EDT): Insurance requesting further information. Plan to refax DME request with additional information for approval. Benign paroxysmal positional vertigo due to bilateral vestibular disorder 12/22/2023 Overview (12/22/2023): Windfall-Hallpike positive on exam 12/19/23 Discussed tx options, [...] maintenance 11/19/2022 Overview (03/26/2025): Optometry: referred to [facility] 10/05/24 Dental: discuss at [...] Overview (11/07/2022): -EMG confirmed 2021 -Referred to [facility] 11/05/22 Atypical chest pain 08/17/2022 Subdural [...] mucosa; negative for dysplasia. 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 -BP Goal <130/80 [...] Bilateral nephrolithiasis 06/30/2021 Overview (12/22/2023): Following with [facility] - JULIEN Mcguire History of passing [...] Type Department Care Team Description 05/07/2025 Telephone [facility] [address] [place] [address] Karoline Pedraza MD No Show 05/06/2025 Orders Only [facility] [address] [place] [address] Cindy Max FNP 05/03/2025 Telephone [facility] [address] [place] [address] Cindy Max FNP Prior Authorization 04/25/2025 Telephone [facility] [address] [place] [address] Cindy Max FNP Med Refill 04/09/2025 Telephone [facility] [address] [place] [address] Cindy Max FNP No Show 03/29/2025 Orders Only [facility] [address] [place] [address] Cindy Max FNP Obesity (BMI 30-39.9) 03/27/2025 Telephone [facility] [address] [place] [address] Cindy Max FNP 03/25/2025 3:15 PM EDT Office Visit [facility] [address] [place] [address] Cindy Max FNP Bilateral nephrolithiasis (Primary Dx); [...] Dental X-Ray: Full Mouth 1970 FIT 1970 Sigmoidoscopy 1970 Family Planning (PISQ) 11/19/1987 Hepatitis B Vaccines (1 of 3 - 19+ 3-dose series) 11/19/1991 Pneumococcal Vaccine: 50+ Years (1 of 1 - PCV) 2022 Colonoscopy 09/21/2023 Cervical Cancer Screening 03/05/2025 HPV/Cotest 03/05/2025 09/20/2023, 09/12, 09/07/2021 Pap Smear 03/05/2025 09/20/2023, 09/12, 09/07/2021, Additional history exists COVID-19 Vaccine ( season) 2025 03/11/2021, 02/18/2021 Influenza Vaccine (#1) 2025 06/30/2021 Diagnostic Breast Imaging 05/28/2025 SDOH Screening 09/26/2025 09/26/2024 Diabetes: Hemoglobin A1C 10/11/202510/11/ 025, 06/08/2023, 11/08/2022, Additional history exists FOBT 11/16/2025 11/16/2024 Alcohol/Substance Use Screening 03/25/2026 03/25/2025 Depression Screening [...] Procedure Name Priority Date/Time Associated Diagnosis Comments BI MAMMOGRAM SCREENING TOMOSYNTHESIS BILATERAL Routine 05/09/2025 12:06 PM EDT Encounter for screening mammogram for malignant neoplasm of breast LAB COLOGUARD COLON CANCER SCREEN Routine 11/16/2024 [...] 11/08/2022 8:39 AM EST Routine health maintenance from Last 3 Months or Most Recently Relevant to Health Maintenance Results * BI Mammogram Screening Tomosynthesis Bilateral (05/09/2025 12:06 PM EDT) Anatomical Region Laterality Modality Breast Bilateral Mammography 05/09/2025 12:0 6 PM EDT Narrative 05/11/2025 6:15 PM EDT [facility] [address] [place] [address] Mammography Report Signed Patient: Nazia Corona MR# : [id number] : 1970 Acct:[id number] Age/Sex: 54 / F ADM Date: 05/09/25 Loc: HO.MAMMO Attending Dr: Cindy Max READING INTERVENTIONIST Ordering Physician: Cindy Max Results: 0Incom plete: Needs Additional Imaging Evaluation Date of Service: 05/09/25 Follow Up: Additional Imagi ng Procedure(s): MM tomosynthesis screening BI Accession Number(s): [id number] cc: Cindy Max READING INTERVENTIONIST EXAMINATION: MM SCREENING DIGITAL BREAST TOMOSYNTHESIS, BILATERAL CLINICAL INFORMATION: Screening. Asymptomatic. This is the first mammogram following bilateral reduction mammoplasty in 2022. COMPARISON: Comparison made to multiple prior, most recent August 20, 2022, and most remote July 04, 2020. TECHNIQUE: Digital breast tomosynthesis is performed in mediolateral oblique and craniocaudal views along with computer-aided detection (CAD). FINDINGS: BREAST COMPOSITION: The breasts are heterogeneously dense, which may obscure small masses (ACR BI-RADS breast composition Category c). RIGHT BREAST: Status post reduction mammoplasty. No significant masses, suspicious calcifications or other abnormalities are seen. LEFT BREAST: Status post reduction mammoplasty. Focal asymmetry in the far posterior depth in the lower lateral quadrant. No suspicious calcifications are seen. MM/MM tomosynthesis screening BI IMPRESSION: RIGHT BREAST: Benign, no mammographic evidence of malignancy. Normal interval follow-up is recommended in 12 months. LEFT BREAST: Focal asymmetry in the far posterior depth may be part of the postsurgical changes. Patient will be called back for additional imaging for better evaluation. ASSESSMENT: BI-RADS 0 - Incomplete: Needs additional Imaging. RECOMMENDATION: 1. Additional views of the left breast 2. Targeted ultrasound if warranted after review of the additional views. 3. Radiology department staff will contact the patient for additional imaging. FOLLOW-UP: Additional Imaging required This examination should not preclude the clinical evaluation of a suspicious palpable abnormality. This patient's information was entered into a reminder system with a target due date for their next mammogram. Electronically signed by: Humphrey Varghese MD 05/11/2025 06:12 PM EDT Dictated By: Humphrey Varghese MD Signed By: <Electronically signed by Humphrey Varghese MD in OV> 05/11/25 1812 DD/ 1206 TD/TT: 05/09/25 1231 Case Supervisor: Procedure Note Donotuseinterpreter, Image - 05/11/2025 [facility] [address] [place], [place] [address] Mammography Report Signed Patient: Nazia Corona# : [id number] : 1970Acct:[id number] Age/Sex: 54 / FADM Date: 05/09/25 Loc: HO.MAMMO Attending Dr: Cindy Max READING INTERVENTIONIST Ordering Physician: Cindy Max FNPResults: 0Incom plete: Needs Additional Imaging Evaluation Date of Service: 05/09/25Follow Up: Additional Imagi ng Procedure(s): MM tomosynthesis screening BI Accession Number(s): [id number] cc: Cindy Max EXAMINATION: MM SCREENING DIGITAL BREAST TOMOSYNTHESIS, BILATERAL CLINICAL INFORMATION: Screening. Asymptomatic. This is the first mammogram following bilateral reduction mammoplasty in 2022. COMPARISON: Comparison made to multiple prior, most recent August 20, 2022, and most remote July 04, 2020. TECHNIQUE: Digital breast tomosynthesis is performed in mediolateral oblique and craniocaudal views along with computer-aided detection (CAD). FINDINGS: BREAST COMPOSITION: The breasts are heterogeneously dense, which may obscure small masses (ACR BI-RADS breast composition Category c). RIGHT BREAST: Status post reduction mammoplasty. No significant masses, suspicious calcifications or other abnormalities are seen. LEFT BREAST: Status post reduction mammoplasty. Focal asymmetry in the far posterior depth in the lower lateral quadrant. No suspicious calcifications are seen. MM/MM tomosynthesis screening BI IMPRESSION: RIGHT BREAST: Benign, no mammographic evidence of malignancy. Normal interval follow-up is recommended in 12 months. LEFT BREAST: Focal asymmetry in the far posterior depth may be part of the postsurgical changes. Patient will be called back for additional imaging for better evaluation. ASSESSMENT: BI-RADS 0 - Incomplete: Needs additional Imaging. RECOMMENDATION: 1. Additional views of the left breast 2. Targeted ultrasound if warranted after review of the additional views. 3. Radiology department staff will contact the patient for additional imaging. FOLLOW-UP: Additional Imaging required This examination should not preclude the clinical evaluation of a suspicious palpable abnormality. This patient's information was entered into a reminder system with a target due date for their next mammogram. Electronically signed by: Humphrey Varghese MD 05/11/2025 06:12 PM EDT Dictated By: Humphrey Varghese MD Signed By: <Electronically signed by Humphrey aVrghese MD in OV> 05/11/25 1812 DD/ 1206 TD/TT: 05/09/25 1231 Case Supervisor: Cindy VICTORIA IMG BI PROCEDURES Final Result * Cologuard?? colon cancer screening (11/16/2024 8:08 AM EST) Cologuard Result Negative Negative 11/22/19 4:29 AM EDT [facility] (CLIA #:[id number]) Comment: NEGATIVE TEST RESULT. A negative Cologuard [...] Todd et al, N Engl J Med 2014;370(14):2801-9650) The normal value (reference range) for this assay is negative. COLOGUARD RE-SCREENING RECOMMENDATION: Periodic colorectal cancer screening is an important part of preventive healthcare for asymptomatic individuals at average risk for colorectal cancer. Following a negative Cologuard result, the [place] [employer] Society and U.S. Multi-Society Task Force screening guidelines recommend a Cologuard re-screening interval of 3 years. References: [place] [employer] Guideline for Colorectal Cancer Screening: https://www.cancer.org/cancer/vmeec-wlmuhj-hdtlnf/hwgxuncbu-euzxttdvy-uvyfsme/ac s-rec ommendations.html.; Regis JUNIOR, John OLIVAREZ, Ronan VictorK, Colorectal Cancer Screening: Recommendations for Physicians and Patients from the U.S. Multi-Society Task Force on Colorectal Cancer Screening , Am J Gastroenterology 2017; 112:7103-9827. TEST DESCRIPTION: Composite algorithmic analysis of stool [...] screened with both Cologuard and colonoscopy. (Lorrie Mason. et al, N Engl J Med 2014;370(14):2992-5618.) Cologuard may produce a false negative or false positive result (no colorectal cancer or precancerous polyp present at colonoscopy follow up). A negative Cologuard test result does not guarantee the absence of CRC or advanced adenoma (pre-cancer). The current Cologuard screening interval is every 3 years. ([place] [employer] Society and U.S. Multi-Society Task Force). Cologuard performance data in a 10,000 patient pivotal study using colonoscopy as the reference method can be accessed at the following location: www.eZono/results. Additional description of the Cologuard test process, warnings and precautions can be found at www.Asset InternationalogActivehoursrd.com. Stool specimen (specimen) Rectal contents / Unknown 11/16/2024 8:08 AM EST 11/17/2024 3:34 PM EST C[facility] [place] Final Result [facility] (CLIA #:[id number]) [address] [place], [place] [address], * Hemoglobin A1c (10/11/2024 8:17 AM EST) Hemoglobin A1c 5.6 <6.0 % [facility] Comment:Hemoglobin A1C Refer ence Range Adults: 4.8 - 6.0 % Non diabetic: < 6.0 % Goal: < 7.0 %Additional Action Suggested: > 8.0 %Note: Hemoglobin A1c results are invalid for patients with abnormal amounts of HbF. Blood transfusions may impact the HbA1c concentration in the patient sample. Estimated Average Glucose 114 mg/dL [facility] Comment:eAG = Estimated ave rage glucose which is %A1C expressed asaverage glucose, using the formula of the J5B-WvrqfwySizmfsk Glucose study (ADAG), Diabetes Care, Vol.31,#8,Apr. 2007 Blood Venous blood specimen / Unknown 10/11/2024 8:17 AM EST 10/11/2024 1:58 PM EST us Cnidy Max READING INTERVENTIONIST LAB BLOOD ORDERABLES Final Res ult [facility] [address] [place] [phone] * (ABNORMAL) Lipid Panel, Standard (10/11/2024 8:17 AM EST) Triglycerides 146 <150 mg/dL [facility] Comment:Desirable Triglyceri de: less than 150 mg/dLBorderline High Triglyceride 150-199 mg/dLHigh Triglyceride: 200-499 mg/dLVery High Triglyceride: greater than or equal to 5OO mg/dL Cholesterol 227(H) <200 mg/dL [facility] Comment:Desirable Cholestero l: less than 200 mg/dLBorderline High Cholesterol: 200-239 mg/dLHigh Cholesterol: greater than 239 mg/dL LDL Cholesterol Calculated 147(H) <100 mg/dL [facility] Comment:Desirable LDL: less than 100 mg/dLNear Optimal/Above Optimal LDL: 110- 129 mg/dLBorderline High LDL: 130-159 mg/dLHigh LDL: 160-189 mg/dLVery High LDL: greater than or equal to 190 mg/dL HDL Cholesterol 51 >40 mg/dL [facility] Comment:Desirable HDL: great er than 40 mg/dL Note: This HDL assay may give artificially low results in patients with liver disease. Blood Venous blood specimen / Unknown 10/11/2024 8:17 AM EST 10/11/2024 2:01 PM EST Cindy Mxa READING INTERVENTIONIST LAB BLOOD ORDERABLES Final Res ult [facility] [address] [place] [phone] * (ABNORMAL) HPV mRNA E6/E7 w/Reflex to HPV Genotypes 16, 18/45 (09/20/2023 3:09 PM EST) HPV nRNA E6/E7 Detected(A ) Not Detected [facility] Comment:Methodology: Transcr iption-Mediated AmplificationThis assay detects E6/E7 viral messenger RNA (mRNA) from 14high-risk HPV types (16,18,31,33,35,39,45,51,52,56,58,59,66,68).Cervical sources are required for HPV testing.If a vaginal source from a patient who has had atotal hysterectomy with removal of cervix wassubmitted, please contact the testing laboratoryfor alternative testing options.For additional information, please refer tohttp://education.[employer]/faq/LQY702l2(This link if provided for information/educational purposes only.)THIS TEST WAS PERFORMED AT:[facility] [place] [phone] STEWART MD HPV 16 RNA NOT DETECTED NOT DETECTED [facility] HPV 18/45 RNA NOT DETECTED NOT DETECTED [facility] Comment:Methodology: Transcr iption Mediated AmplificationCervical sources are required for HPV testing.If a vaginal source from a patient who has had atotal hysterectomy with removal of cervix wassubmitted, please contact the testing laboratoryfor alternative testing options.THIS TEST WAS PERFORMED AT:[facility] [place] [phone] STEWART MD 09/20/2023 3:09 PM EST 09/21/2023 10:22 AM EST Helen MANZO LAB CYTOLOGY ORDERABLES F inal Result [facility] [address] [place] [phone] * Pap Smear (09/20/2023 3:09 PM EST) Swab Cervix uteri structure / Unknown 09/20/2023 3:09 PM EST 09/21/2023 10:22 AM EST Narrative [facility] - 09/29/2023 8:40 AM EST ----- ------- Name: Nazia Corona Age/Sex: 52/F : 1970 Unit#: [id number] Attend Dr: Re09/20/23 Status: PRE [facility] Disch: ----- ------- SPEC : [id number] RECD: 09/21/23-1022 STATUS: YUDY HEAD NUM: [id number] EDILMA: 09/20/23-1509 [facility] DR: HELEN ELLIS CNM ENTERED: 09/21/23-7345 SP TYPE: Pap Smr OT DR: ORDERED: Pap Smear, PAP path review [...] RNA: Not Detected HPV testing performed by [facility], [place], [place]. See reference laboratory portion of the EMR for entire report. Clinical Information LMP: Postmenopausal Previous PAP test: 09/2022, ASCUS HPV- Other history: Hx of NIL/HPV pos Material Received ThinPrep-Cervical ----- ------- Signed (signature on file) Felix Carmona MD 09/29/23 0840 ----- ------- END OF REPORT Helen Ellis [facility] CYTOLOGY ORDERABLES F inal Result [facility] [address] [place] [phone] * HIV-1 RNA, Quantitative, Real-Time PCR with Reflex to Genotype (RTI, PI, Integrase) (11/08/2022 8:39 AM EST) HIV 1 RNA, QN PCR NOT DETECTED copies/mL [facility], HIV 1 RNA, QN PCR NOT DETECTED Log copies/mL [facility], Comment: REFERENCE RANGE: NOT DETECTED copies/mL NOT DETECTED Log copies/mL This test was performed using Real-Time Polymerase Chain Reaction. Reportable range is 20 to 10,000,000 copies/mL (1.30-7.00 Log copies/mL). 11/08/2022 8:39 AM EST 11/08/2022 8:39 AM EST Narrative [facility] - 11/11/2022 12:22 AM EST FASTING:YES FASTING: YES Cindy Margretdia [facility] LAB BLOOD ORDERABLES Final Res ult Performing Organization Address [facility] de Phone Number [facility] [address] [place] [address], [facility] [place] [address] [facility], [address] [facility] [place] [address] * Hepatitis C Antibody with Reflex to HCV, RNA, Quantitative, Real-Time PCR (11/08/2022 8:39 AM EST) Hepatitis C Antibody NON-REACT SHIRLEY NON-REACT SHIRLEY [facility] Index 0.06 <1.00 [facility] Comment: HCV antibody was non-reactive. There is no laboratory evidence of HCV infection. In most cases, no further action is required. However, if recent HCV exposure is suspected, a test for HCV RNA (test code 69327) is suggested. For additional information please refer to http://education.[employer]/faq/ETF11q8 (This link is being provided for informational/ educational purposes only.) Blood Venous blood specimen / Unknown 11/08/2022 8:39 AM EST 11/08/2022 8:39 AM EST Narrative [facility] - 11/11/2022 12:22 AM EST FASTING:YES FASTING: YES Cindy Max [facility] LAB BLOOD ORDERABLES Final Res ult Performing Organization Address [facility]/ZIP Co de Phone Number [facility] [address] [place] [address], [place] [address] [facility] [address] [place] [address] St, ([address]) [place] [address] from Last 3 Months or Most Recently Relevant to Health Maintenance Insurance [facility] 3 DENTAL - HSN PARTIAL (MEDICAID) Care Teams Retail Sales Assistant Relationship Specialty Start Date End Date Cindy Max FNP [address] [place] [address] PCP - General Family Medicine 05/09/22
== END 2025-05-17 12:56 | disposition home or self-care (01) ==
LOC: HO.MAMMO 12:55
PROVIDERS: PCP Registered Nurse; Visit Provider Registered Nurse
DX: N64.89 Other specified disorders of breast (principal)
CPT/HCPCS: 77061; 77065

== ENCOUNTER → 2025-05-17 13:30 | Outpatient (BNV) | payer OTHER, SELFPAY | PROVIDERS: PCP Registered Nurse; Visit Provider Radiology Body Imaging | DX: R92.8 Other abnormal and inconclusive findings on diagnostic imaging of breast (principal) | CPT/HCPCS: 77061; 77065 ==

== ENCOUNTER 2025-06-18 07:20 | Outpatient (REF) | payer OTHER, SELFPAY ==
--- NOTE | ~2025-06-18 | US_ITS ---
EXAMINATION: US RETROPERITONEAL LIMITED (RENAL ONLY) CLINICAL INFORMATION: Kidney stones. COMPARISON: Previous renal ultrasounds most recently December [address] of the abdomen and pelvis May 2023 TECHNIQUE: Real-time imaging of the kidneys. FINDINGS: RIGHT KIDNEY: 10.7 x 5 x 6.7 cm (SAG x AP x TRV). The kidney is normal in size, contour, and echogenicity. Renal cortical thickness is normal. No calculi or focal parenchymal lesions. No hydronephrosis. LEFT KIDNEY: 10 x 6 x 5 cm (SAG x AP x TRV). The kidney is normal in size, contour, and echogenicity. Renal cortical thickness is normal. There is a 1.6 x 1.3 x 1.4 cm cyst in the lower pole with question echogenic debris versus solid mural nodule measuring 7 x 7 x 6 mm. 2 mm echogenic focus in the lower pole questionable for vascular reflector versus small stone. No hydronephrosis. US/US renal BI IMPRESSION: Right: Normal right kidney. Left: 1.6 x 1.3 x 1.4 cm complex cyst in the lower pole of the left kidney. Recommend follow-up renal MRI. 2 mm echogenic focus in the lower pole questionable for vascular reflector versus small stone. Electronically signed by: Blanca López MD 06/18/2025 08:36 AM EDT
--- OUTSIDE RECORDS SUMMARY | 2025-06-18 07:22 | XMS_ITS | Clinical Summary ---
Author Organization [employer] Address [address] [place] [address] 7[address] [place] [address] Care Team Providers Care Bell Person Name Role Phone MargretCindy alvares JULIEN Primary Care Provider [phone] Allergies No known active allergies Medications * This document contains information received from the source organization and may not represent a complete record from that organization. guaiFENesin (Mucinex) 600 MG 12 hr tablet Take 1 tablet by mouth every 12 (twelve) hours. 07/07/20 22 Active sodium chloride (Olinda) 0.65 % nasal spray 1-2 spray on each nostril every 2- 3 hours as needed for nasal congestion 07/07/20 22 Active amLODIPine (Norvasc) 5 MG tablet Take 5 mg by mouth in the morning. 09/24/19 23 Active losartan (Cozaar) 100 MG tablet Take [...] week. 2 mL 2 05/06/20 25 Active carvedilol (Coreg) 25 MG tabletIndicati ons:Hypertensi on, unspecified type TAKE 1 TABLET BY MOUTH EVERY DAY WITH FOOD 90 tablet 3 06/04/20 25 Active carvedilol (Coreg) 25 MG tabletIndicati ons:Hypertensi on, unspecified type TAKE 1 TABLET BY MOUTH EVERY DAY WITH FOOD 90 tablet 3 05/17/20 24 2024 Discontinued(R eorder (will not trigger notification to Pharmacy)) Active [...] relaxation filling pattern. 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 Diverticulosis 12/22/2023 Overview (12/22/2023): Noted on CT abd/pelvis May 2023 Degenerative disc disease, lumbar 12/22/2023 Overview (10/08/2024): DDD of lumbar region noted as incidental finding on CT abd/pelvis ordered May 2023 by [facility] Lumbar XR March 2024: Ygbzozoq-gu-pqsars degenerative disc disease and facet arthropathy at L5-S1. Completed physical therapy with improvement in symptoms in 2023 Followed by [facility] Obstructive sleep apnea 12/22/2023 Overview (10/08/2024): 08/12/23: [facility] Home Sleep study report. Diagnosed with MARILU, with recommendation for pt to return for an in lab sleep study with CPAP/BiPAP and transcutaneous CO2 monitoring. 01/26/24: Hospital sleep study at [facility]. Titration study. Diagnosed with Severe MARILU. Pt to be started on CPAP 8 cm of H20 with heated humidifier DME request 02/03/24 Re-request sent on 10/08/24 with new insurance Assessment & Plan (03/30/2024 7:42 AM EDT): Insurance requesting further information. Plan to refax DME request with additional information for approval. Benign paroxysmal positional vertigo due to bilateral vestibular disorder 12/22/2023 Overview (12/22/2023): [place]-Hallpike positive on exam 12/19/23 Discussed tx options, [...] maintenance 11/19/2022 Overview (03/26/2025): Optometry: referred to [facility] 10/05/24 Dental: discuss at [...] Overview (11/07/2022): -EMG confirmed 2021 -Referred to [facility] 11/05/22 Atypical chest pain 08/17/2022 Subdural hematoma (CMS/HCC) 08/17/2022 Overview (11/07/2022): 2020 Presenting symptoms were [...] mucosa; negative for dysplasia. 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 -BP Goal <130/80 [...] Bilateral nephrolithiasis 06/30/2021 Overview (12/22/2023): Following with [facility] - JULIEN Mcguire History of passing [...] organization. Date Type Department Care Team Description 06/04/2025 Refill [facility] [address] [place] [address] Cindy Max FNP Hypertension, unspecified type 05/07/2025 Telephone [facility] [address] [place] [address] Karoline Pedraza MD No Show 05/06/2025 Orders Only [facility] [address] [place] [address] Cindy Max FNP 05/03/2025 Telephone [facility] [address] [place] [address] Cindy Max FNP Prior Authorization 04/25/2025 Telephone [facility] [address] [place] [address] Cindy Max FNP Med Refill 04/09/2025 Telephone [facility] [address] [place] [address] Cindy Max FNP No Show 03/29/2025 Orders Only [facility] [address] [place] [address] Cindy Max FNP Obesity (BMI 30-39.9) 03/27/2025 Telephone [facility] [address] [place] [address] Cindy Max FNP 03/25/2025 3:15 PM EDT Office Visit [facility] [address] [place] [address] Cindy Max FNP Bilateral nephrolithiasis (Primary Dx); [...] Care Team (Late st Contact Info) Description 07/22/2025 9:00 AM EST Office Visit [facility] [address] [place] [address] Cindy Max, ACUTE CARE NURSING ASSISTANT [address] [place] [address] Health Maintenance Due Date Last Done Comments [...] 09/12, 09/07/2021, Additional history exists COVID-19 Vaccine (3 - 2024- season) 2025 03/11/2021, 02/18/2021 Influenza Vaccine (#1) 2025 06/30/2021 SDOH Screening 09/26/2025 09/26/2024 Diabetes: Hemoglobin A1C 10/11/2025 025, 06/08/2023, 11/08/2022, Additional history exists FOBT 11/16/2025 11/16/2024 Alcohol/Substance Use Screening 03/25/2026 03/25/2025 Depression Screening 03/25/2026 03/25/2025, 03/25/20 25 Disability Screening 03/25/2026 03/25/2025 Tobacco Screening 03/25/2026 03/25/2025 Mammogram 05/17/2026 05/09/2025, 09/10/2021 Colorectal Cancer Screening 11/17/2027 FIT DNA/Cologuard 11/17/2027 [...] Priority Date/Time Associated Diagnosis Comments BI MAMMOGRAM DIAGNOSTIC TOMOSYNTHESIS ADDED VIEW LEFT Routine 05/17/2025 1:00 PM EDT BI MAMMOGRAM SCREENING TOMOSYNTHESIS BILATERAL Routine 05/09/2025 [...] to Health Maintenance Results * BI Mammogram Diagnostic Tomosynthesis added left (05/17/2025 1:00 PM EDT) Anatomical Region Laterality Modality Breast Left Mammography 05/17/2025 1:00 PM EDT Narrative 05/17/2025 4:18 PM EDT [facility] [address] [place] [address] Dr. [place], [place] [address] Mammography Report Signed Patient: Nazia Corona MR# : [id number] : 1970 Acct:[id number] Age/Sex: 54 / F ADM Date: 05/17/25 Loc: HO.MAMMO Attending Dr: Cindy Max ACUTE CARE NURSING ASSISTANT Ordering Physician: Cindy Max Results: 2Benig n Findings Date of Service: 05/17/25 Follow Up: 1 Year From Orig inal Mammogram Procedure(s): MM tomosynthesis added views L Accession Number(s): [id number] cc: Cindy Max ACUTE CARE NURSING ASSISTANT EXAMINATION(S): 1. MM DIAGNOSTIC DIGITAL BREAST TOMOSYNTHESIS, LEFT 2. Targeted ultrasound of the left breast CLINICAL INFORMATION: Callback from screening for left breast focal asymmetry in the far posterior depth. Most recent screening mammogram was the first one following bilateral reduction mammoplasty in 2022. COMPARISON: May 09, 2025 TECHNIQUE: Digital breast tomosynthesis is performed in full field ML 90 degrees along with computer-aided detection (CAD). Synthesized 2D images are generated from the tomosynthesis. Spot compression tomosynthesis images were also obtained. FINDINGS: BREAST COMPOSITION: There are scattered areas of fibroglandular density (ACR BI-RADS breast composition Category b). LEFT BREAST: Status post reduction mammoplasty. Previously suggested focal asymmetry is pliable with spot compression and most likely represented overlapping fibroglandular breast tissue and/or related to the prior surgery. MM/MM tomosynthesis added views L IMPRESSION: LEFT BREAST: Benign, no mammographic evidence of malignancy. Normal interval follow-up is recommended in 12 months. ASSESSMENT: BI-RADS 2 - Benign Findings RECOMMENDATION: 1 year F/U Results were provided to the patient at time of visit by the technologist. This patient's information was entered into a reminder system with a target due date for their next mammogram. Electronically signed by: Humphrey Varghese MD 05/17/2025 04:15 PM EDT Dictated By: Humphrey Varghese MD Signed By: <Electronically signed by Humphrey Varghese MD in OV> 05/17/25 1615 DD/ 1300 TD/TT: 05/17/25 1315 Hand Hardener: Procedure Note Donotuseinterpreter, Image - 05/17/2025 [facility] [address] [place] [address] [place] [address] Mammography Report Signed Patient: Nazia CoronaMR# : [id number] : 1970Acct:[id number] Age/Sex: 54 / FADM Date: 05/17/25 Loc: HO.MAMMO Attending Dr: Cindy Max ACUTE CARE NURSING ASSISTANT Ordering Physician: Cindy Max FNPResults: 2Benig n Findings Date of Service: 05/17/25Follow Up: 1 Year From Orig inal Mammogram Procedure(s): MM tomosynthesis added views L Accession Number(s): [id number] cc: Cindy Max ACUTE CARE NURSING ASSISTANT EXAMINATION(S): 1. MM DIAGNOSTIC DIGITAL BREAST TOMOSYNTHESIS, LEFT 2. Targeted ultrasound of the left breast CLINICAL INFORMATION: Callback from screening for left breast focal asymmetry in the far posterior depth. Most recent screening mammogram was the first one following bilateral reduction mammoplasty in 2022. COMPARISON: May 09, 2025 TECHNIQUE: Digital breast tomosynthesis is performed in full field ML 90 degrees along with computer-aided detection (CAD). Synthesized 2D images are generated from the tomosynthesis. Spot compression tomosynthesis images were also obtained. FINDINGS: BREAST COMPOSITION: There are scattered areas of fibroglandular density (ACR BI-RADS breast composition Category b). LEFT BREAST: Status post reduction mammoplasty. Previously suggested focal asymmetry is pliable with spot compression and most likely represented overlapping fibroglandular breast tissue and/or related to the prior surgery. MM/MM tomosynthesis added views L IMPRESSION: LEFT BREAST: Benign, no mammographic evidence of malignancy. Normal interval follow-up is recommended in 12 months. ASSESSMENT: BI-RADS 2 - Benign Findings RECOMMENDATION: 1 year F/U Results were provided to the patient at time of visit by the technologist. This patient's information was entered into a reminder system with a target due date for their next mammogram. Electronically signed by: Humphrey Varghese MD 05/17/2025 04:15 PM EDT Dictated By: Humphrey Varghese MD Signed By: <Electronically signed by Humphrey Varghese MD in OV> 05/17/25 1615 DD/ 1300 TD/TT: 05/17/25 1315 Hand Hardener: Cindy VICTORIA IMG BI PROCEDURES Final Result * BI Mammogram Screening Tomosynthesis Bilateral (05/09/2025 12:06 PM EDT) Anatomical Region Laterality Modality Breast Bilateral Mammography 05/09/2025 12:0 6 PM EDT Narrative 05/11/2025 6:15 PM EDT [facility] [address] [place] [address] Mammography Report Signed Patient: Nazia Corona MR# : [id number] : 1970 Acct:[id number] Age/Sex: 54 / F ADM Date: 05/09/25 Loc: HO.MAMMO Attending Dr: Cindy VICTORIA Ordering Physician: Cindy Max Results: 0Incom plete: Needs Additional Imaging Evaluation Date of Service: 05/09/25 Follow Up: Additional Imagi ng Procedure(s): MM tomosynthesis screening BI Accession Number(s): [id number] cc: Cindy Max EXAMINATION: MM SCREENING DIGITAL [...] Humphrey Varghese MD 05/11/2025 06:12 PM EDT RP Dictated By: Humphrey Varghese MD Signed By: <Electronically signed by Humphrey Varghese MD in OV> 05/11/25 1812 DD/ 1206 TD/TT: 05/09/25 1231 Hand Hardener: Procedure Note Donotuseinterpreter, Image - 05/11/2025 [facility] [address] [place], [place] [address] Mammography Report Signed Patient: Nazia Corona# : [id number] : 1970Acct:[id number] Age/Sex: 54 / FADM Date: 05/09/25 Loc: HO.MAMMO Attending Dr: Cindy Max ACUTE CARE NURSING ASSISTANT Ordering Physician: Cindy Max FNPResults: 0Incom plete: Needs Additional Imaging Evaluation Date of Service: 05/09/25Follow Up: Additional Imagi ng Procedure(s): MM tomosynthesis screening BI Accession Number(s): [id number] cc: Cindy Max EXAMINATION: MM SCREENING DIGITAL [...] 05/11/25 1812 DD/ 1206 TD/TT: 05/09/25 1231 Hand Hardener: Cindy Max ACUTE CARE NURSING ASSISTANT IMG BI PROCEDURES Final Result * Cologuard?? colon cancer screening (11/16/2024 8:08 AM EST) Cologuard Result Negative Negative 11/22/19 4:29 AM EDT [facility] (CLIA #:[id number]) Comment: NEGATIVE TEST RESULT. A negative Cologuard [...] (Lorrie Lockett al, N Engl J Med 2014;370(14):4036-9529) The normal value (reference range) for this assay is negative. COLOGUARD RE-SCREENING RECOMMENDATION: Periodic colorectal cancer screening is an important part of preventive healthcare for asymptomatic individuals at average risk for colorectal cancer. Following a negative Cologuard result, the [place] Cancer Society and U.S. Multi-Society Task Force screening guidelines recommend a Cologuard re-screening interval of 3 years. References: [place] [employer] Society Guideline for Colorectal Cancer Screening: https://www.cancer.org/cancer/qsdrk-qywiid-jwsfhb/mojvhcnqx-tauvevsjo-ttwsupa/ac s-rec ommendations.html.; Regis DK, John OLIVAREZ, Ronan VictorK, Colorectal Cancer Screening: Recommendations for Physicians and Patients from the U.S. Multi-Society Task Force on Colorectal Cancer Screening , Am J Gastroenterology 2017; 112:0274-7036. TEST DESCRIPTION: Composite algorithmic analysis of stool [...] Todd et al, N Engl J Med 2014;370(14):2013-8598.) Cologuard may produce a false negative or false positive result (no colorectal cancer or precancerous polyp present at colonoscopy follow up). A negative Cologuard test result does not guarantee the absence of CRC or advanced adenoma (pre-cancer). The current Cologuard screening interval is every 3 years. ([place] Cancer Society and U.S. Multi-Society Task Force). Cologuard performance data in a 10,000 patient pivotal study using colonoscopy as the reference method can be accessed at the following location: www.[employer].[place]/results. Additional description of the Cologuard test process, warnings and precautions can be found at www.[employer].[place]. Stool specimen (specimen) Rectal contents / Unknown 11/16/2024 8:08 AM EST 11/17/2024 3:34 PM EST Cindy Max [facility] MOLECULAR DIAGNOSTICS [place] Final Result [facility] [employer] (CLIA #:[id number]) [address] [place] [address], * Hemoglobin A1c (10/11/2024 8:17 AM EST) Hemoglobin A1c 5.6 <6.0 % [facility] Comment:Hemoglobin A1C Refer ence Range Adults: 4.8 - 6.0 % Non diabetic: < 6.0 % Goal: < 7.0 %Additional Action Suggested: > 8.0 %Note: Hemoglobin A1c results are invalid for patients with abnormal amounts of HbF. Blood transfusions may impact the HbA1c concentration in the patient sample. Estimated Average Glucose 114 mg/dL [facility] Comment:eAG = Estimated ave rage glucose which is %A1C expressed asaverage glucose, using the formula of the T8R-MztgywpNdslrhm Glucose study (ADAG), Diabetes Care, Vol.31,#8,2007 Blood Venous blood specimen / Unknown 10/11/2024 8:17 AM EST 10/11/2024 1:58 PM EST Cindy Max [facility] BLOOD ORDERABLES Final Res ult Performing Organization Address [facility] de Phone Number [facility] [address] [place] [phone] * (ABNORMAL) Lipid Panel, Standard (10/11/2024 8:17 AM EST) Triglycerides 146 <150 mg/dL [facility] Comment:Desirable Triglyceri de: less than 150 mg/dLBorderline High Triglyceride 150-199 mg/dLHigh Triglyceride: 200-499 mg/dLVery High Triglyceride: greater than or equal to 5OO mg/dL Cholesterol 227(H) <200 mg/dL [facility] Comment:Desirable Cholestero l: less than 200 mg/dLBorderline High Cholesterol: 200-239 mg/dLHigh Cholesterol: greater than 239 mg/dL LDL Cholesterol Calculated 147(H) <100 mg/dL [facility] Comment:Desirable LDL: less than 100 mg/dLNear Optimal/Above Optimal LDL: 110- 129 mg/dLBorderline High LDL: 130-159 mg/dLHigh LDL: 160-189 mg/dLVery High LDL: greater than or equal to 190 mg/dL HDL Cholesterol 51 >40 mg/dL [facility] Comment:Desirable HDL: great er than 40 mg/dL Note: This HDL assay may give artificially low results in patients with liver disease. Blood Venous blood specimen / Unknown 10/11/2024 8:17 AM EST 10/11/2024 2:01 PM EST Cindy Max [facility] BLOOD ORDERABLES Final Res ult Performing Organization Address [facility] Co de Phone Number [facility] [address] [place] [phone] * (ABNORMAL) HPV mRNA E6/E7 w/Reflex to HPV Genotypes 16, 18/45 (09/20/2023 3:09 PM EST) HPV nRNA E6/E7 Detected(A ) Not Detected [facility] Comment:Methodology: Transcr iption-Mediated AmplificationThis assay detects E6/E7 viral messenger RNA (mRNA) from 14high-risk HPV types (16,18,31,33,35,39,45,51,52,56,58,59,66,68).Cervical sources are required for HPV testing.If a vaginal source from a patient who has had atotal hysterectomy with removal of cervix wassubmitted, please contact the testing laboratoryfor alternative testing options.For additional information, please refer tohttp://education.[employer]/faq/ASH443t3(This link if provided for information/educational purposes only.)THIS TEST WAS PERFORMED AT:[facility] [place] [phone] STEWART MD HPV 16 RNA NOT DETECTED NOT DETECTED [facility] HPV 18/45 RNA NOT DETECTED NOT DETECTED [facility] Comment:Methodology: Transcr iption Mediated AmplificationCervical sources are required for HPV testing.If a vaginal source from a patient who has had atotal hysterectomy with removal of cervix wassubmitted, please contact the testing laboratoryfor alternative testing options.THIS TEST WAS PERFORMED AT:[facility] [place] [phone] STEWART MD 09/20/2023 3:09 PM EST 09/21/2023 10:22 AM EST [facility] LAB CYTOLOGY ORDERABLES F inal Result [facility] [address] [place] [address] [phone] * Pap Smear (09/20/2023 3:09 PM EST) Swab Cervix uteri structure / Unknown 09/20/2023 3:09 PM EST 09/21/2023 10:22 AM EST Narrative [facility] - 09/29/2023 8:40 AM EST ----- ------- Name: Nazia Corona Age/Sex: 52/F [facility] 1970 [id number] [id number] Attend Dr: Re09/20/23 Status: PRE REF Location: [facility] Disch: ----- ------- SPEC : [id number] RECD: 09/21/23-1022 STATUS: YUDY HEAD NUM: [id number] EDILMA: 09/20/23-[address] [facility] [address]: HELEN [facility] ENTERED: 09/21/23-2584 SP TYPE: Pap Smr NICHOLAS DR: ORDERED: Pap Smear, PAP path review [...] RNA: Not Detected HPV testing performed by [facility], [place], [place]. See reference laboratory portion of the EMR for entire report. Clinical Information LMP: Postmenopausal Previous PAP test: 09/2022, [facility] HPV- Other history: Hx of NIL/HPV pos Material Received ThinPrep-Cervical ----- ------- Signed (signature on file) Felix Carmona MD 09/29/23 0840 ----- ------- END OF REPORT [facility] LAB CYTOLOGY ORDERABLES F inal Result [facility] [address] [place], [place] [phone] * HIV-1 RNA, Quantitative, Real-Time PCR with Reflex to Genotype (RTI, PI, Integrase) (11/08/2022 8:39 AM EST) [facility] HIV 1 RNA, QN PCR NOT DETECTED copies/mL [facility], HIV 1 RNA, QN PCR NOT DETECTED Log copies/mL [facility], Comment: REFERENCE RANGE: NOT DETECTED copies/mL NOT DETECTED Log copies/mL This test was performed using Real-Time Polymerase Chain Reaction. Reportable range is 20 to 10,000,000 copies/mL (1.30-7.00 Log copies/mL). 11/08/2022 8:39 AM EST 11/08/2022 8:39 AM EST Narrative [facility] - 11/11/2022 12:22 AM EST FASTING:YES FASTING: YES Cindy Max ACUTE CARE NURSING ASSISTANT LAB BLOOD ORDERABLES Final Res ult [facility] [address], [place] [address] [facility], [address] [place] [address] * Hepatitis C Antibody with Reflex to HCV, RNA, Quantitative, Real-Time PCR (11/08/2022 8:39 AM EST) Hepatitis C Antibody NON-REACT SHIRLEY NON-REACT SHIRLEY [facility] [place] [employer] Index 0.06 <1.00 [facility] [place] [employer] Comment: HCV antibody was non-reactive. There is no laboratory evidence of HCV infection. In most cases, no further action is required. However, if recent HCV exposure is suspected, a test for HCV RNA (test code 36164) is suggested. For additional information please refer to http://education.[employer]/faq/GEB36i0 (This link is being provided for informational/ educational purposes only.) Blood Venous blood specimen / Unknown 11/08/2022 8:39 AM EST 11/08/2022 8:39 AM EST Narrative [facility] - 11/11/2022 12:22 AM EST FASTING:YES FASTING: YES us Cindy Max ACUTE CARE NURSING ASSISTANT LAB BLOOD ORDERABLES Final Res ult Performing Organization Address City/[facility]/ZIP Co de Phone Number [facility] [address], [place] [address] [facility] [place] [employer] [address] [facility], (Nl[address]) [place] [address] from Last 3 Months or Most Recently Relevant to Health Maintenance Insurance [facility] 3 DENTAL - HSN PARTIAL (MEDICAID) Care Teams Bell Person Relationship Specialty Start Date End Date Cindy Max FNP [address] [place] [phone] PCP - General Family Medicine 05/09/22
--- OUTSIDE RECORDS SUMMARY | 2025-06-18 07:22 | XMS_ITS | Encounter Summary ---
Author Organization [employer] Address [address] [place] [address] 7 [place] [address] Care Team Providers Care Articulation Officer Name Role Phone Cindy Max Primary Care Provider [phone] Encounter Details Date Type Department Care Team ([facility] Contact Info) Description 03/29/2025 Orders Only [facility] [address] [place], [place] [phone] Cindy Max FNP [address] [place] [address] Obesity (BMI 30-39.9) Social History Tobacco Use [...] Upcoming Encounters Date Type Department Care Team ([facility] st Contact Info) Description 07/22/2025 9:00 AM EST Office Visit [facility] [address] [place] [address] Cindy Max FNP [address] [place] [address] documented as of this encounter Visit Diagnoses Diagnosis Obesity (BMI 30-39.9) documented in this encounter Additional Health Concerns Assessment Noted Time PHQ-9 Depression Total Score: 1 03/25/20 25 3:13 PM EDT documented as of this encounter Care Teams Articulation Officer Relationship Specialty Start Date End Date Cindy Max FNP [address] [place] [phone] PCP - General Family Medicine 05/09/22 documented as of this encounter
--- OUTSIDE RECORDS SUMMARY | 2025-06-18 07:22 | XMS_ITS | Encounter Summary ---
Author Organization [employer] Address [address] [facility] [address]t [place] [address] Care Team Providers Care Chiller Tender Name Role Phone Winter Cindy JULIEN Primary Care Provider [phone] Encounter Details Date Type Department Care Team ([facility] st Contact Info) Description 09/08/2024 Orders Only [facility] [address] [place] [address] Provider, MD Eugene Social History Tobacco Use [...] 9:00 AM EST Office Visit [facility] [address] [place] [address] Cindy Max FNP [address] [place] [address] documented as of this encounter Procedures Procedure [...] documented as of this encounter Care Teams Chiller Tender Relationship Specialty Start Date End Date Cindy Max FNP [address] [place] [address] PCP - General Family Medicine 05/09/22 documented as of this encounter
--- OUTSIDE RECORDS SUMMARY | 2025-06-18 07:22 | XMS_ITS | Encounter Summary ---
Author Organization [employer] Address [address] [place] [address] [address] [address] Care Team Providers Care Casino Supervisor Name Role Phone Cindy Max Primary Care Provider [phone] Reason for Visit * Reason Onset Date Comments Med Refill 04/25/2025 Encounter Details Date Type Department Care Team ([facility] Contact Info) Description 04/25/2025 Telephone [facility] [address] [place], [place] [phone] Cindy Max FNP [address] [place], [place] [phone] Med Refill Social History Tobacco Use Types [...] 1:15 PM EDT Medication was sent to [facility] on 03/29/25 with 2 refills. * Telephone Encounter - Michelle Crouch - 04/25/2025 1:11 PM EDT TC from pt requesting medication refill. Medications needing refill : Tirzepatide 2.5 MG/0.5ML solution auto-injector To be sent to: [facility] documented in this encounter Plan of Treatment Upcoming Encounters Date Type Department Care Team (Late st Contact Info) Description 07/22/2025 9:00 AM EST Office Visit [facility] [address] [place] [address] Cindy Max FNP [address] [place] [address] documented as of this encounter Visit Diagnoses Not on filedocumented in this encounter Additional Health Concerns Assessment Noted Time PHQ-9 Depression Total Score: 1 03/25/20 25 3:13 PM EDT documented as of this encounter Care Teams Casino Supervisor Relationship Specialty Start Date End Date Cindy Max FNP [address] [place] [address] PCP - General Family Medicine 05/09/22 documented as of this encounter
--- OUTSIDE RECORDS SUMMARY | 2025-06-18 07:22 | XMS_ITS | Clinical Summary ---
Author Organization [facility] it Address [address] [place] [address] Care Team Providers Care Hydraulic Jack Mechanic Name Role Phone Unavailable Primary Care Provider [...] 5 season) 2025 Influenza Vaccine (#1) 2025 RSV Immunization Adult Patie nts (1 - 1-dose 75+ series) 11/19/2047 HIB Vaccines Aged Out No longer eligi [...]
== END 2025-06-18 07:21 | disposition home or self-care (01) ==
LOC: HO.US 07:20
PROVIDERS: PCP Registered Nurse; Visit Provider Registered Nurse
DX: N20.0 Calculus of kidney (principal)
CPT/HCPCS: 76775

== ENCOUNTER → 2025-06-18 07:22 | Outpatient (BNV) | payer OTHER, SELFPAY | PROVIDERS: PCP Registered Nurse; Visit Provider Radiology Diagnostic Radiology | DX: N28.1 Cyst of kidney, acquired (principal) | CPT/HCPCS: 76775 ==

== ENCOUNTER 2025-07-09 08:12 | Outpatient (REF) | payer OTHER, SELFPAY | END 2025-07-09 08:13 | disposition home or self-care (01) | LOC: HO.LAB 08:12 | PROVIDERS: PCP Registered Nurse; Visit Provider Nurse Practitioner Family | DX: N20.0 Calculus of kidney (principal); N28.1 Cyst of kidney, acquired; Z13.89 Encounter for screening for other disorder | CPT/HCPCS: 81003; 88112; 99212 ==

== ENCOUNTER 2025-07-09 08:12 | Outpatient (AMB) | payer OTHER, SELFPAY ==
--- NOTE | 2025-07-09 08:13 | A.OFFVIS_ITS ---
Intake Visit Reasons: hx of kidney stones Intake Note: Patient is present for HX OF KIDNEY STONES/US Urology Medication:NONE Antibiotic Allergy:NONE Blood Thinner:NONE Belt Fixer Required: No Belt Fixer Name: Adarsh [id number] Allergies No Known Allergies Allergy (Verified 07/09/25 08:59) Medication List - Last Reconciled 07/09/25 by BASILIA Mejia amlodipine 5 mg PO DAILY carvedilol 25 mg PO DAILY hydrochlorothiazide 12.5 mg PO DAILY losartan 100 mg PO DAILY HPI Comments Details: Nazia is a pleasant 54-year-old Slovenian-speaking patient of Dr. Max. She has a past medical history of hypertension. She presents to the office today for follow-up of her nephrolithiasis. In discussion with the patient today she reports noting intermittent episodes of left-sided flank pain. She reports taking a remedy from [facility] that she finds helpful. She also reports intermittent episodes of dysuria over the last year. Recent renal imaging results reviewed with the patient today. 07/06 bilateral kidneys with no hydronephrosis. Left kidney with 1.6 complex cyst in the lower pole. Recommending follow-up with MRI renal mass protocol per radiology report. 2 mm echogenic focus in the lower pole questionable for vascular reflexion versus small stone. When asked she does endorse she is not drinking much water daily. We did discussed potential causes of flank pain as well as dysuria. In office urinalysis results reviewed with the patient today negative leukocytes negative nitrates 1+ microscopic hematuria. We did discussed the importance of adequate hydration relation to nephrolithiasis as well as lower urinary tract symptoms. When asked she denies urinary urgency, urinary frequency, incontinence, nocturia, hematuria, foul smelling urine, changes to urinary stream, fever, and or chills. We discussed nephrolithiasis as well as renal cysts. All questions were answered. She otherwise offers no other issues or concerns at this time. 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 Review of Systems Const All systems reviewed & are unremarkable except as noted in HPI and below Physical Exam Const General: cooperative, healthy appearing, comfortable, no acute distress, well developed, alert and awake Nutritional Appearance: overweight Orientation/consciousness: patient oriented x3 Limitations: language barrier HEENT Head: Yes normal to inspection, Yes normocephalic and Yes atraumatic Ears: hearing grossly normal bilaterally Eyes General: appearance normal, both eyes and all related structures Neck Neck: Yes normal visual inspection and Yes trachea midline Chest Chest palpation & inspection: normal inspection of the chest Resp Effort & Inspection: normal respiratory effort and able to speak in complete sentences Cardio Rate: regular rate GI Inspection: Yes normal to inspection General: Yes no CVA tenderness Back/Spine/Pelvis Back: no CVA tenderness Skin General skin exam: no rashes or lesions noted Neuro General: patient oriented x3 Extrem General: Yes normal to inspection Psych Appearance: grossly normal and well kempt Mental Status: mental status grossly normal Speech and movement: Normal speech and movement present and Clear speech present Affect: normal affect Attitude: cooperative Thought process: Normal thought process present Thought content: Normal thought content present Insight: Fair insight present (Psych) Judgement: Fair judgement present (Psych) Results AMB Urinalysis, Automated UA Leukoctes 0 José Miguel/uL Last Edit by MALA Parham on 07/09/25 08:48 UA Nitrite Negative Last Edit by MALA Parham on 07/09/25 08:48 UA Urobilinogen 0.2 mg/dL Last Edit by MALA Parham on 07/09/25 08:4 8 UA Protein 0 mg/dL Last Edit by MALA Parham on 07/09/25 08:48 UA pH 6.0 Last Edit by MALA Parham on 07/09/25 08:48 UA Blood 25 Scar/uL Last Edit by MALA Parham on 07/09/25 08:48 UA Specific Redmond 1.025 Last Edit by MALA Parham on 07/09/25 08: 48 UA Ketone Negative Last Edit by MALA Parham on 07/09/25 08:48 UA Bilirubin 0 mg/dL Last Edit by MALA Parham on 07/09/25 08:48 UA Glucose 0 mg/dL Last Edit by MALA Parham on 07/09/25 08:48 Results Reviewed Results Reviewed: Laboratory Last Values Urine pH (Auto) 6.0 07/09/25 08:48 Specific Red[place] (Auto) 1.025 07/09/25 08:48 Urine Protein (Auto) 0 mg/dL 07/09/25 08:48 Glucose (UA)(Auto) 0 mg/dL 07/09/25 08:48 Urine Ketones (Auto) Negative 07/09/25 08:48 Urine Blood (Auto) 25 Scar/uL 07/09/25 08:48 Urine Nitrite (Auto) Negative 07/09/25 08:48 Urine Bilirubin (Auto) 0 mg/dL 07/09/25 08:48 Urine Urobilinogen (Auto) 0.2 mg/dL 07/09/25 08:48 Leukocyte Esterase (Auto) 0 José Miguel/uL 07/09/25 08:48 Date of Service: 06/18/25 Procedure(s): US renal BI FINDINGS: RIGHT KIDNEY: 10.7 x 5 x 6.7 cm (SAG x AP x TRV). The kidney is normal in size, contour, and echogenicity. Renal cortical thickness is normal. No calculi or focal parenchymal lesions. No hydronephrosis. LEFT KIDNEY: 10 x 6 x 5 cm (SAG x AP x TRV). The kidney is normal in size, contour, and echogenicity. Renal cortical thickness is normal. There is a 1.6 x 1.3 x 1.4 cm cyst in the lower pole with question echogenic debris versus solid mural nodule measuring 7 x 7 x 6 mm. 2 mm echogenic focus in the lower pole questionable for vascular reflector versus small stone. No hydronephrosis. IMPRESSION: Right: Normal right kidney. Left: 1.6 x 1.3 x 1.4 cm complex cyst in the lower pole of the left kidney. Recommend follow-up renal MRI. 2 mm echogenic focus in the lower pole questionable for vascular reflector versus small stone. Assessment & Plan Assessment & Plan (1) Flank pain: Code(s): R10.9 - Unspecified abdominal pain Category: Medical (2) Nephrolithiasis: Code(s): N20.0 - Calculus of kidney Category: Medical (3) Renal cyst: Code(s): N28.1 - Cyst of kidney, acquired Category: Medical Plan In office urinalysis results reviewed with the patient today; as noted above. Recent renal imaging results reviewed with the patient today; as noted above. We did discussed the importance of adequate hydration relation to nephrolithiasis as well as overall health and well-being. Start vitamin B6 as discussed and prescribed. Will obtain MRI renal mass protocol for further assessment evaluation. All questions were answered. We discussed adding 1 oz of lemon juice to water daily. Will continue with surveillance monitoring. Follow-up in 1-3 months with MRI; or sooner with any issues, concerns, and or questions. Orders: Orders AMB Urinalysis Automated Today Z13.9 - Encounter for screening, unspecified Urine Cytology Today R31.29 - Other microscopic hematuria US renal BI 06/18/25 N20.0 - Calculus of kidney MR abdomen wo/w con Today N28.1 - Cyst of kidney, acquired Medications: New pyridoxine (vitamin B6) 100 mg PO DAILY 90 tabs 1RF 90 days N20.0 - Calculus of kidney Patient Instructions: The patient had an opportunity to ask questions regarding the treatment plan. All questions were answered. Physical exam, labs, and imaging were discussed and reviewed in detail. As well as risks, benefits, and discussion of treatment choices. No major barriers to understanding were identified. The patient expressed understanding and agreement with the above treatment plan. The patient was made aware they should contact our office by phone for worsening of their current condition, the appearance of new symptoms, or with any questions or concerns. Compliance is encouraged with any medications and follow up testing that is ordered. It is a privilege to be allowed the opportunity to participate in? your urological care.? Again, if you have any questions or concerns If you have any questions or concerns please do not hesitate to contact me. The office is [phone]. This note is constructed using voice recognition software. While every effort has been made to ensure accuracy licensed loan officer assistant errors may have been included. Yours sincerely, BASILIA Mejia Coding Level of Care Code Est Pt Level 4 (70401) Complex EM visit Add On G2211 Diagnoses Flank pain R10.9 Nephrolithiasis N20.0 Renal cyst N28.1
--- OUTSIDE RECORDS SUMMARY | 2025-07-09 08:32 | XMS_ITS | Encounter Summary ---
Author Organization [employer] Address [address] [place] [address] Care Team Providers Care Burnishing Machine Operator Name Role Phone Cindy Max Primary Care Provider [phone] Reason for Visit * Reason Onset Date Comments Med Refill 04/25/2025 Encounter Details Date Type Department Care Team ([facility] Contact Info) Description 04/25/2025 Telephone [facility] [address] [place], [place] [phone] Cindy Max FNP [address] [place], [place] [phone] Med Refill Social History Tobacco Use Types [...] 1:15 PM EDT [facility] with 2 refills. * Telephone Encounter - Michelle Crouch - 04/25/2025 1:11 PM EDT TC from pt requesting medication refill. Medications needing refill : Tirzepatide 2.5 MG/0.5ML solution auto-injector [facility] be sent to: [facility] documented in this encounter Plan of Treatment Upcoming Encounters Date Type Department Care Team (Late st Contact Info) Description 07/22/2025 9:00 AM EST Office Visit [facility] [address] [place] [address] Cindy Max FNP [address] [place] [address] documented as of this encounter Visit Diagnoses Not on filedocumented in this encounter Additional Health Concerns Assessment Noted Time PHQ-9 Depression Total Score: 1 03/25/20 25 3:13 PM EDT documented as of this encounter Care Teams Burnishing Machine Operator Relationship Specialty Start Date End Date Cindy Max FNP [address] [place] [address] PCP - General Family Medicine 05/09/22 documented as of this encounter
--- OUTSIDE RECORDS SUMMARY | 2025-07-09 08:32 | XMS_ITS | Clinical Summary ---
Author Organization [employer] Address [address] [place] [address] 7 [place] [address] Care Team Providers Care Silo Worker Name Role Phone MargretdiaJhonnyle JULIEN Primary Care Provider [phone] Allergies No known active allergies Medications * This document contains information received from the source organization and may not represent a complete record from that organization. guaiFENesin (Mucinex) 600 MG 12 hr tablet Take 1 tablet by mouth every 12 (twelve) hours. 2 Active sodium chloride (Kemper) 0.65 % nasal spray 1-2 spray on each nostril every 2- 3 hours as needed for nasal congestion 2 Active amLODIPine (Norvasc) 5 MG tablet Take 5 mg by mouth in the morning. 3 Active losartan (Cozaar) 100 MG tablet Take 1 tablet (100 mg) by mouth Once per day. 90 tablet 3 5 Active famotidine (Pepcid) 20 MG tabletIndicatio ns:Mild acid reflux Take 1 tablet (20 mg) by mouth if needed in the morning and at bedtime for heartburn or indigestion. 60 tablet 1 5 03/25/20 26 Active valACYclovir (Valtrex) 1 g tabletIndicatio ns:Genital herpes simplex, unspecified site Take 1 tablet by oral route daily for 5 days at start of outbreak 5 tablet 5 5 Active acyclovir (Zovirax) 5 % ointmentIndicat ions:Genital herpes simplex, unspecified site Apply topically 5 (five) times a day for four days as needed for cold sore. Space applications every 3 hours. 15 g 1 5 Active Tirzepatide-Ede ght Management (Zepbound) 5 MG/0.5ML solution auto-injector Inject 0.5 mL (5 mg) under the skin 1 (one) time per week. 2 mL 2 Active carvedilol (Coreg) 25 MG tabletIndicatio ns:Hypertension , unspecified type TAKE 1 TABLET BY MOUTH EVERY DAY WITH FOOD 90 tablet 3 5 Active Active Problems Problem Noted Date Diagnosed Date [...] separate medications as well as following with wheel installer. Diverticulosis 12/22/2023 Overview (12/22/2023): Noted on CT abd/pelvis May 2023 Degenerative disc disease, lumbar 12/22/2023 Overview (10/08/2024): DDD of lumbar region noted as incidental finding on CT abd/pelvis ordered May 2023 by [facility] Urology Lumbar XR March 2024: Evcqamlt-ru-dpsjyl degenerative disc disease and facet arthropathy at L5-S1. Completed physical therapy with improvement in symptoms in 2023 Followed by PS&S Obstructive sleep apnea 12/22/2023 Overview (10/08/2024): 08/12/23: [facility] Home Sleep study report. Diagnosed with MARILU, with recommendation for pt to return for an in lab sleep study with CPAP/BiPAP and transcutaneous CO2 monitoring. 01/26/24: Hospital sleep study at [facility]. Titration study. Diagnosed with Severe MARILU. Pt to be started on CPAP 8 cm of H20 with heated humidifier DME request 02/03/24 Re-request sent on 10/08/24 with new insurance Assessment & Plan (03/30/2024 7:42 AM EDT): Insurance requesting further information. Plan to refax DME request with additional information for approval. Benign paroxysmal positional vertigo due to bilateral vestibular disorder 12/22/2023 Overview (12/22/2023): [place]-Hallpike positive on exam 12/19/23 Discussed tx options, [...] (03/26/2025): Optometry: referred to [facility] Eye Care 10/05/24 Dental: discuss at [...] Overview (11/07/2022): -EMG confirmed 2021 -Referred to [facility] Ortho 11/05/22 Atypical chest pain 08/17/2022 Subdural [...] mucosa; negative for dysplasia. Cont following with [facility] CELL RELINER Hyperlipidemia 07/09/2021 Overview (03/26/2025): -ASCVD risk: 2.2% [...] Primary hypertension 06/30/2021 Overview (03/26/2025): -Following with [facility]. -BP Goal <130/80 [...] Bilateral nephrolithiasis 06/30/2021 Overview (12/22/2023): Following with [facility] Urology - JULIEN Mcguire History of passing [...] Encounters Date Type Department Care Team Description 06/18/2025 Orders Only [facility] External Provider, [facility] 06/04/2025 Refill [facility] PED[facility] [address] [place] [address] Cindy Max FNP Hypertension, unspecified type 05/07/[address] [facility] MED & PEDS [address] [place] [address] Karoline Pedraza MD No Show 05/06/2025 Orders Only [facility] PEDS [address] [place] [address] Cindy Max FNP 05/03/2025 Telephone [facility] [address] [place] [address] Cindy Max FNP Prior Authorization 04/25/[address] [facility] MED [facility] PEDS [address] [place] [address] Cindy Max FNP Med Refill 04/09/2025 Telephone [facility] [address] [place] [address] Cindy Max FNP No Show from Last 3 Months Immunizations Immunization Administration [...] Upcoming Encounters Date Type Department Care Team ([facility] st Contact Info) Description 07/22/2025 9:00 AM EST Office Visit [facility] [address] [place] [address] Phalen, Cindy, SCREW MACHINE SET UP OPERATOR TOOL[address] [address] Health Maintenance Due Date Last Done Comments [...] Procedure Name Priority Date/Time Associated Diagnosis Comments US RENAL COMPLETE Routine 06/18/2025 8:0 7 AM EDT BI MAMMOGRAM DIAGNOSTIC TOMOSYNTHESIS ADDED VIEW LEFT [...] Recently Relevant to Health Maintenance Results * US Renal Complete (06/18/2025 8:07 AM EDT) Anatomical Region Laterality Modality Kidney Ultrasound 06/18/2025 8:07 AM EDT Narrative 06/18/2025 8:38 AM EDT [place] [address] Ultrasound Report Signed Patient: Nazia Corona MR# : [id number] : 1970 Acct:[id number] Age/Sex: 54 / F ADM Date: 06/18/25 Loc: HO.US Attending Dr: Cindy VICTORIA Ordering Physician: Ruthie Mcguire Date of Service: 06/18/25 Procedure(s): US renal BI Accession Number(s): [id number] cc: Ruthie Mcguire-; Cindy Max Reason for Exam: KIDNEY STONES EXAMINATION: US RETROPERITONEAL LIMITED (RENAL ONLY) CLINICAL INFORMATION: Kidney stones. COMPARISON: Previous renal ultrasounds most recently December [address] of the abdomen and pelvis May 2023 TECHNIQUE: Real-time imaging of the kidneys. FINDINGS: RIGHT KIDNEY: 10.7 x 5 x 6.7 cm (SAG x AP x TRV). The kidney is normal in size, contour, and echogenicity. Renal cortical thickness is normal. No calculi or focal parenchymal lesions. No hydronephrosis. LEFT KIDNEY: 10 x 6 x 5 cm (SAG x AP x TRV). The kidney is normal in size, contour, and echogenicity. Renal cortical thickness is normal. There is a 1.6 x 1.3 x 1.4 cm cyst in the lower pole with question echogenic debris versus solid mural nodule measuring 7 x 7 x 6 mm. 2 mm echogenic focus in the lower pole questionable for vascular reflector versus small stone. No hydronephrosis. US/US renal BI IMPRESSION: Right: Normal right kidney. Left: 1.6 x 1.3 x 1.4 cm complex cyst in the lower pole of the left kidney. Recommend follow-up renal MRI. 2 mm echogenic focus in the lower pole questionable for vascular reflector versus small stone. Electronically signed by: Blanca López MD 06/18/2025 08:36 AM EDT RP Dictated By: Blanca López MD Signed By: <Electronically signed by Blanca López MD in OV> 06/18/25835 DD/ 6 TD/TT: 06/18/25817 Sample Weaver: BRIONNA Procedure Note Donotuseinterpreter, Image - 06/18/2025 [place] [address] Ultrasound Report Signed Patient: Nazia CoronaMR# : [id number] : 1970Acct:[id number] Age/Sex: 54 / FADM Date: 06/18/25 Loc: HO.US Attending Dr: Cindy VICTORIA Ordering Physician: Ruthie Mcguire Date of Service: 06/18/25 Procedure(s): US renal BI Accession Number(s): [id number] cc: Ruthie Mcguire-; Cindy Max Reason for Exam: KIDNEY STONES EXAMINATION: US RETROPERITONEAL LIMITED (RENAL ONLY) CLINICAL INFORMATION: Kidney stones. COMPARISON: Previous renal ultrasounds most recently December [address] of the abdomen and pelvis May 2023 TECHNIQUE: Real-time imaging of the kidneys. FINDINGS: RIGHT KIDNEY: 10.7 x 5 x 6.7 cm (SAG x AP x TRV). The kidney is normal in size, contour, and echogenicity. Renal cortical thickness is normal. No calculi or focal parenchymal lesions. No hydronephrosis. LEFT KIDNEY: 10 x 6 x 5 cm (SAG x AP x TRV). The kidney is normal in size, contour, and echogenicity. Renal cortical thickness is normal. There is a 1.6 x 1.3 x 1.4 cm cyst in the lower pole with question echogenic debris versus solid mural nodule measuring 7 x 7 x 6 mm. 2 mm echogenic focus in the lower pole questionable for vascular reflector versus small stone. No hydronephrosis. US/US renal BI IMPRESSION: Right: Normal right kidney. Left: 1.6 x 1.3 x 1.4 cm complex cyst in the lower pole of the left kidney. Recommend follow-up renal MRI. 2 mm echogenic focus in the lower pole questionable for vascular reflector versus small stone. Electronically signed by: Blanca López MD 06/18/2025 08:36 AM EDT Dictated By: Blanca López MD Signed By: <Electronically signed by Blanca López MD in OV> 06/18/25835 DD/ 0807 TD/TT: 06/18/25 0818 Sample Weaver: BRIONNA us [facility] External Provider IMG US PROCEDURES Final Result * BI Mammogram Diagnostic Tomosynthesis added left (05/17/2025 1:00 PM EDT) Anatomical Region Laterality Modality Breast Left Mammography 05/17/2025 1:00 PM EDT Narrative 05/17/2025 4:18 PM EDT [facility] [address] [place] [address] Mammography Report Signed Patient: Nazia Corona MR# : [id number] : 1970 Acct:[id number] Age/Sex: 54 / F ADM Date: 05/17/25 Loc: GEOFFREY.MAMMO Attending Dr: Cindy Max SCREW MACHINE SET UP OPERATOR TOOL Ordering Physician: Cindy Max Results: 2Benig n Findings Date of Service: 05/17/25 Follow Up: 1 Year From Orig inal Mammogram Procedure(s): MM tomosynthesis added views L Accession Number(s): [id number] cc: Phalen,Cinyd SCREW MACHINE SET UP OPERATOR TOOL EXAMINATION(S): 1. MM DIAGNOSTIC DIGITAL BREAST TOMOSYNTHESIS, [...] 05/17/25 1615 DD/ 1300 TD/TT: 05/17/25 1315 Sample Weaver: Procedure Note Donotuseinterpreter, Image - 05/17/2025 [facility] [address] [place], [place] [address] Mammography Report Signed Patient: Nazia Corona# : [id number] : 1970Acct:[id number] Age/Sex: 54 / FADM Date: 05/17/25 Loc: HO.MAMMO Attending Dr: Cindy Max SCREW MACHINE SET UP OPERATOR TOOL Ordering Physician: Cindy Max FNPResults: 2Benig n Findings Date of Service: 05/17/25Follow Up: 1 Year From Orig inal Mammogram Procedure(s): MM tomosynthesis added views L Accession Number(s): [id number] cc: Cindy Max SCREW MACHINE SET UP OPERATOR TOOL EXAMINATION(S): 1. MM DIAGNOSTIC DIGITAL BREAST TOMOSYNTHESIS, [...] 05/17/25 1615 DD/ 1300 TD/TT: 05/17/25 1315 Sample Weaver: Cindy RUANOP IMG BI PROCEDURES Final Result * BI Mammogram Screening Tomosynthesis Bilateral (05/09/2025 12:06 PM EDT) Anatomical Region Laterality Modality Breast Bilateral Mammography 05/09/2025 12:0 6 PM EDT Narrative 05/11/2025 6:15 PM EDT [place] [address] [place], [place] [address] Mammography Report Signed Patient: Nazia Corona MR# : [id number] : 1970 Acct:[id number] Age/Sex: 54 / F ADM Date: 05/09/25 Loc: HO.MAMMO Attending Dr: Cindy Max SCREW MACHINE SET UP OPERATOR TOOL Ordering Physician: Cindy Max SCREW MACHINE SET UP OPERATOR TOOL Results: 0Incom plete: Needs Additional Imaging Evaluation Date of Service: 05/09/25 Follow Up: Additional Imagi ng Procedure(s): MM tomosynthesis screening BI Accession Number(s): [id number] cc: Cindy Max EXAMINATION: MM SCREENING DIGITAL [...] 05/11/25 1812 DD/ 1206 TD/TT: 05/09/25 1231 Sample Weaver: Procedure Note Donotuseinterpreter, Image - 05/11/2025 [facility] [address] [place] [address] Mammography Report Signed Patient: Nazia CoronaMR# : [id number] : 1970Acct:[id number] Age/Sex: 54 / FADM Date: 05/09/25 Loc: HO.MAMMO Attending Dr: Cindy Max SCREW MACHINE SET UP OPERATOR TOOL Ordering Physician: Cindy Max FNPResults: 0Incom plete: Needs Additional Imaging Evaluation Date of Service: 05/09/25Follow Up: Additional Imagi ng Procedure(s): MM tomosynthesis screening BI Accession Number(s): [id number] cc: Cindy Max SCREW MACHINE SET UP OPERATOR TOOL EXAMINATION: MM SCREENING DIGITAL BREAST TOMOSYNTHESIS, BILATERAL [...] 05/11/25 1812 DD/ 1206 TD/TT: 05/09/25 1231 Sample Weaver: Cindy Winter SCREW MACHINE SET UP OPERATOR TOOL IMG BI PROCEDURES Final Result * Cologuard?? colon cancer screening (11/16/2024 8:08 AM EST) Cologuard Result Negative Negative 11/22/19 4:29 AM EDT [facility] (CLIA #:[id number]) Comment: NEGATIVE TEST RESULT. A negative Cologuard [...] (Lorrie Lockett al, N Engl J Med 2014;370(14):9570-2422) The normal value (reference range) for this assay is negative. COLOGUARD RE-SCREENING RECOMMENDATION: Periodic colorectal cancer screening is an important part of preventive healthcare for asymptomatic individuals at average risk for colorectal cancer. Following a negative Cologuard result, the [place] [employer] Society and U.S. Multi-Society Task Force screening guidelines recommend a Cologuard re-screening interval of 3 years. References: [place] [employer] Guideline for Colorectal Cancer Screening: https://www.cancer.org/cancer/vhgxk-urtjwo-nahkli/mfpjoislk-lkvprqdtb-uvsphgx/ac s-rec ommendations.html.; Regis DK, John OLIVAREZ, Ronan VictorK, Colorectal Cancer Screening: Recommendations for Physicians and Patients from the U.S. Multi-Society Task Force on Colorectal Cancer Screening , Am J Gastroenterology 2017; 112:3791-4326. TEST DESCRIPTION: Composite algorithmic analysis of stool [...] (Lorrie Lockett al, N Engl J Med 2014;370(14):2710-2285.) Cologuard may produce a false negative or false positive result (no colorectal cancer or precancerous polyp present at colonoscopy follow up). A negative Cologuard test result does not guarantee the absence of CRC or advanced adenoma (pre-cancer). The current Cologuard screening interval is every 3 years. ([place] [employer] Society and U.S. Multi-Society Task Force). Cologuard performance data in a 10,000 patient pivotal study using colonoscopy as the reference method can be accessed at the following location: www.Freezing Point.Tackle Grab/results. Additional description of the Cologuard test process, warnings and precautions can be found at www.cologIsolation Sciencesrd.com. Stool specimen (specimen) Rectal contents / Unknown 11/16/2024 8:08 AM EST 11/17/2024 3:34 PM EST Cindy Cameramadia [facility] MOLECULAR DIAGNOSTICS ORDE RABLES Final Result [facility] (CLIA #:[id number]) [address] [place] [address], * Hemoglobin A1c (10/11/2024 8:17 AM EST) Hemoglobin A1c 5.6 <6.0 % [facility] Comment:Hemoglobin A1C Refer ence Range Adults: 4.8 - 6.0 % Non diabetic: < 6.0 % Goal: < 7.0 %Additional Action Suggested: > 8.0 %Note: Hemoglobin A1c results are invalid for patients with abnormal amounts of HbF. Blood transfusions may impact the HbA1c concentration in the patient sample. Estimated Average Glucose 114 mg/dL [facility] Comment:eAG = Estimated ave rage glucose which is %A1C expressed asaverage glucose, using the formula of the A4V-ZqrjzysPuviojn Glucose study (ADAG), Diabetes Care, Vol.31,#8,Apr. 2007 Blood Venous blood specimen / Unknown 10/11/2024 8:17 AM EST 10/11/2024 1:58 PM EST [facility] BLOOD ORDERABLES Final Res ult [facility] [address] [place] [phone] * (ABNORMAL) Lipid Panel, Standard (10/11/2024 8:17 AM EST) Triglycerides 146 <150 mg/dL [facility] Comment:Desirable Triglyceri de: less than 150 mg/dLBorderline High Triglyceride 150-199 mg/dLHigh Triglyceride: 200-499 mg/dLVery High Triglyceride: greater than or equal to 5OO mg/dL Cholesterol 227(H) <200 mg/dL [facility] Comment:Desirable Cholestero l: less than 200 mg/dLBorderline High Cholesterol: 200-239 mg/dLHigh Cholesterol: greater than 239 mg/dL LDL Cholesterol Calculated 147(H) <100 mg/dL [facility] Comment:Desirable LDL: less than 100 mg/dLNear Optimal/Above Optimal LDL: 110- 129 mg/dLBorderline High LDL: 130-159 mg/dLHigh LDL: 160-189 mg/dLVery High LDL: greater than or equal to 190 mg/dL HDL Cholesterol 51 >40 mg/dL [facility] Comment:Desirable HDL: great er than 40 mg/dL Note: This HDL assay may give artificially low results in patients with liver disease. Blood Venous blood specimen / Unknown 10/11/2024 8:17 AM EST 10/11/2024 2:01 PM EST us Cindy Max [facility] BLOOD ORDERABLES Final Res ult [facility] [address] [place] [phone] * (ABNORMAL) HPV mRNA E6/E7 w/Reflex to HPV Genotypes 16, 18/45 (09/20/2023 3:09 PM EST) HPV nRNA E6/E7 Detected(A ) Not Detected [facility] Comment:Methodology: Transcr iption-Mediated AmplificationThis assay detects E6/E7 viral messenger RNA (mRNA) from 14high-risk HPV types (16,18,31,33,35,39,45,51,52,56,58,59,66,68).Cervical sources are required for HPV testing.If a vaginal source from a patient who has had atotal hysterectomy with removal of cervix wassubmitted, please contact the testing laboratoryfor alternative testing options.For additional information, please refer tohttp://education.[employer]/faq/UXO496h7(This link if provided for information/educational purposes only.)THIS TEST WAS PERFORMED AT:[employer] [address] [phone] STEWART MD HPV 16 RNA NOT DETECTED NOT DETECTED [facility] HPV 18/45 RNA NOT DETECTED NOT DETECTED [facility] Comment:Methodology: Transcr iption Mediated AmplificationCervical sources are required for HPV testing.If a vaginal source from a patient who has had atotal hysterectomy with removal of cervix wassubmitted, please contact the testing laboratoryfor alternative testing options.THIS TEST WAS PERFORMED AT:[employer] [address] [phone] STEWART MD 09/20/2023 3:09 PM EST 09/21/2023 10:22 AM EST Helen Ellis [facility] CYTOLOGY ORDERABLES F inal Result [facility] [address] [place] [phone] * Pap Smear (09/20/2023 3:09 PM EST) Swab Cervix uteri structure / Unknown 09/20/2023 3:09 PM EST 09/21/2023 10:22 AM EST Narrative [facility] - 09/29/2023 8:40 AM EST ----- ------- Name: Nazia Corona Age/Sex: 52/F : 1970 Unit#: [id number] Attend Dr: Re09/20/23 Status: PRE REF Location: TD Disch: ----- ------- SPEC : [id number] RECD: 09/21/23-1022 STATUS: YUDY HEAD NUM: [id number] EDILMA: 09/20/23-1509 [facility] [address]: HELEN ELLIS [facility] ENTERED: 09/21/23-8773 SP TYPE: Pap Smr OTHR DR: ORDERED: [...] RNA: Not Detected HPV testing performed by [facility], [place]. See reference laboratory portion of the EMR for entire report. Clinical Information LMP: Postmenopausal Previous PAP test: 09/2022, [facility] HPV- Other history: Hx of NIL/HPV pos Material Received ThinPrep-Cervical ----- ------- Signed (signature on file) Felix Carmona MD 09/29/23 0803 ----- ------- END OF REPORT Helen Ellis [facility] LAB CYTOLOGY ORDERABLES F inal Result Performing Organization Address City/[facility]/ZIP Co de Phone Number [facility] [address] [place] [phone] * HIV-1 RNA, Quantitative, Real-Time PCR with Reflex to Genotype (RTI, PI, Integrase) (11/08/2022 8:39 AM EST) Pathologist [facility] HIV 1 RNA, QN PCR NOT DETECTED copies/mL [facility], HIV 1 RNA, QN PCR NOT DETECTED Log copies/mL [facility], Comment: REFERENCE RANGE: NOT DETECTED copies/mL NOT DETECTED Log copies/mL This test was performed using Real-Time Polymerase Chain Reaction. Reportable range is 20 to 10,000,000 copies/mL (1.30-7.00 Log copies/mL). 11/08/2022 8:39 AM EST 11/08/2022 8:39 AM EST Narrative [facility] - 11/11/2022 12:22 AM EST FASTING:YES FASTING: YES Cindy Max SCREW MACHINE SET UP OPERATOR TOOL LAB BLOOD ORDERABLES Final Res ult Performing Organization Address City/[facility]/ZIP Co de Phone Number [address], [place] [address] [facility], [address] [place] [address] * Hepatitis C Antibody with Reflex to HCV, RNA, Quantitative, Real-Time PCR (11/08/2022 8:39 AM EST) Hepatitis C Antibody NON-REACT SHIRLEY NON-REACT SHIRLEY [employer] Index 0.06 <1.00 [facility] Comment: HCV antibody was non-reactive. There is no laboratory evidence of HCV infection. In most cases, no further action is required. However, if recent HCV exposure is suspected, a test for HCV RNA (test code 95593) is suggested. For additional information please refer to http://education.[employer]/faq/LLW28y9 (This link is being provided for informational/ educational purposes only.) Blood Venous blood specimen / Unknown 11/08/2022 8:39 AM EST 11/08/2022 8:39 AM EST Narrative [facility] - 11/11/2022 12:22 AM EST FASTING:YES FASTING: YES us Cindy Max SCREW MACHINE SET UP OPERATOR TOOL LAB BLOOD ORDERABLES Final Res ult [facility] [address], [place] [address] [facility] [place] [employer] [address] [facility], ([address]) [place] [address] from Last 3 Months or Most Recently Relevant to Health Maintenance Insurance [facility] 3 DENTAL - HSN PARTIAL (MEDICAID) Care Teams Silo Worker Relationship Specialty Start Date End Date Cindy Max FNP [address] [place] [phone] PCP - General Family Medicine 05/09/22
--- OUTSIDE RECORDS SUMMARY | 2025-07-09 08:32 | XMS_ITS | Encounter Summary ---
Author Organization [employer] Address [address] [place] [address] [address] [place] [address] Care Team Providers [employer] Workflow Consultant Name Role Phone Cindy Max Primary Care Provider [phone] Encounter Details Date Type Department Care Team ([facility] Contact Info) Description 03/29/2025 Orders Only [facility] [address] [place], [place] [phone] Cindy Max FNP [address] [place] [address] Obesity (BMI 30-39.9) Social History Tobacco Use [...] Upcoming Encounters Date Type Department Care Team ([facility] st Contact Info) Description 07/22/2025 9:00 AM EST Office Visit [facility] [address] [place] [address] Cindy Max FNP [address] [place] [address] documented as of this encounter Visit Diagnoses Diagnosis Obesity (BMI 30-39.9) documented in this encounter Additional Health Concerns Assessment Noted Time PHQ-9 Depression Total Score: 1 03/25/20 25 3:13 PM EDT documented as of this encounter Care Teams [employer] Workflow Consultant Relationship Specialty Start Date End Date Cindy Max FNP [address] [place] [phone] PCP - General Family Medicine 05/09/22 documented as of this encounter
--- OUTSIDE RECORDS SUMMARY | 2025-07-09 08:32 | XMS_ITS | Encounter Summary ---
Author Organization [employer] Address [address] [facility] 7[address] [place] [address] Care Team Providers Care Center Medical Specialist Name Role Phone Winter Cindy JULIEN Primary Care Provider [phone] Encounter Details Date Type Department Care Team ([facility] st Contact Info) Description 09/08/2024 Orders Only [facility] [address] [place] [address] Provider, MD Eugene Social History Tobacco Use [...] Description 07/22/2025 9:00 AM EST Office Visit [facility] MED [facility] PEDS [address] [place] [address] Cindy Max FNP [address] [place] [address] documented as of this encounter Procedures Procedure [...] documented as of this encounter Care Teams Center Medical Specialist Relationship Specialty Start Date End Date Cindy Max FNP [address] [place] [address] PCP - General Family Medicine 05/09/22 documented as of this encounter
--- OUTSIDE RECORDS SUMMARY | 2025-07-09 08:33 | XMS_ITS | Clinical Summary ---
Author Organization [facility] it Address [address] [place] [address] Care Team Providers Care Surface Room Shop Optician Name Role Phone Unavailable Primary Care Provider [...]
== END 2025-07-09 08:46 | disposition home or self-care (01) ==
PROVIDERS: PCP Registered Nurse; Visit Provider Nurse Practitioner Family
DX: R10.9 Unspecified abdominal pain (principal); N20.0 Calculus of kidney; N28.1 Cyst of kidney, acquired; Z13.9 Encounter for screening, unspecified
CPT/HCPCS: 99214

== ENCOUNTER 2025-07-22 10:03 | Outpatient (REF) | payer OTHER, SELFPAY ==
--- OUTSIDE RECORDS SUMMARY | 2025-07-22 09:00 | XMS_ITS | Encounter Summary ---
Author Organization [employer] Address [address] [place] [address] Care Team Providers Care Speed Belt Sander Name Role Phone Cindy Max Primary Care Provider [phone] Reason for Referral * Consultation (Routine) - Pending Review Specialty Diagnoses / Procedures Referred By Vanessa rosario Referred To Contact Plastic Surgery Diagnoses H/O breast surgery Cindy Max FNP [address] [place] [address] Phone: tel: fax: Referral ID Status Reason Start Date Expiration Date Visits Requested Visits Authorized [id number] Pending Review Specialty Services Required 07/22/2026 1 1 Reason for Visit * Reason Comments Chronic condition Encounter Details Date Type Department Care Team ([facility] Contact Info) Description 07/22/2025 9:00 AM EST Office Visit [facility] MED & PEDS [address] [place] [address] Cindy Max FNP [address] [place], [place] [phone] Obesity (BMI 30-39.9) (Primary Dx); Routine health maintenance; Complex renal cyst; Bilateral nephrolithiasis; Encounter for immunization; Transaminitis; H/O breast surgery Social History Tobacco Use Types Packs/Day Years [...] Sign Reading Time Taken Comments Blood Pressure 122/88 07/22/2025 9:05 AM EST Pulse 88 07/22/2025 9:05 AM EST Temperature 36.4 C (97.5 F) 07/22/2025 9:05 AM EST Respiratory Rate 18 07/22/2025 9:05 AM EST Oxygen Saturation - - Inhaled Oxygen Concentration - - Weight 70.3 kg (155 lb) 07/22/2025 9:05 AM EST Height 147.3 cm (4' 10 ) 07/22/2025 9:05 AM EST Body Mass Index 32.4 07/22/2025 9:05 AM EST documented in this encounter Miscellaneous Notes * Assessment & Plan Note - JULIEN Jackson - 07/22/2025 6:28 AM ESTAssociated Problem(s): Bilateral nephrolithiasis - Good hydration - Vit B6 through Urology - Rec 1 oz lemon juice in water daily ([facility]) * Assessment & Plan Note - JULIEN Jackson - 07/22/2025 6:27 AM ESTAssociated Problem(s): Complex renal cyst - US renal in Jun 2025 demonstrated 1.6 x 1.3 x 1.4 cm complex cyst in the lower pole of the left kidney. - Following with [facility] - LAISHA Mcguire, with plan for MRI renal mass protocol ordered Jun 2025. documented in this encounter Plan of Treatment Upcoming Encounters Date Type Department Care Team (Late st Contact Info) Description 07/30/2025 10:00 AM EST Procedure Visit [facility] MED & PEDS [address] [place] [address] Karoline Pedraza MD [address] [place] [address] Scheduled Orders Name Type Priority Associated Diagnoses Orde r Schedule Lipid Panel, Standard Lab Routine Transaminitis Expected: 07/22/2025 (Approximate), Expires: 07/22/2026 Hepatic Function Panel Lab Routine Transaminitis Expected: 07/22/2025 (Approximate), Expires: 07/22/2026 Scheduled Referrals Name Type Priority Associated Diagnoses Orde r Schedule Referral to Plastic Surgery Outpatient Referral Routine H/O breast surgery Expected: 07/22/2025 (Approximate), Expires: 07/22/2026 documented as of this encounter Visit Diagnoses Diagnosis Obesity (BMI 30-39.9)- Primary Routine health maintenance Unspecified examination Complex renal cyst Other specified congenital cystic kidney disease Bilateral nephrolithiasis Encounter for immunization Transaminitis Nonspecific elevation of levels of transaminase or lactic acid dehydrogenase (LDH) H/O breast surgery documented in this encounter Additional Health Concerns Assessment Noted Time PHQ-9 Depression Total Score: 1 03/25/20 25 3:13 PM EDT documented as of this encounter Care Teams Speed Belt Sander Relationship Specialty Start Date End Date Cindy Max FNP [address] [place] [address] PCP - General Family Medicine 05/09/22 documented as of this encounter
--- OUTSIDE RECORDS SUMMARY | 2025-07-22 11:42 | XMS_ITS | Encounter Summary ---
Author Organization [employer] Address [address] [facility] 7[address] [place] [address] Care Team Providers Care Greens Keeper Name Role Phone Winter Cindy JULIEN Primary Care Provider [phone] Encounter Details Date Type Department Care Team ([facility] st Contact Info) Description 09/08/2024 Orders Only [facility] [address] [place] [address] Provider, MD Eugene Social History Tobacco Use [...] Description 07/30/2025 10:00 AM EST Procedure Visit [facility] MED [facility] PEDS [address] [place] [address] Karoline Pedraza MD [address] [place] [address] documented as of this encounter Procedures Procedure [...] documented as of this encounter Care Teams Greens Keeper Relationship Specialty Start Date End Date Cindy Max FNP [address] [place] [address] PCP - General Family Medicine 05/09/22 documented as of this encounter
--- OUTSIDE RECORDS SUMMARY | 2025-07-22 11:42 | XMS_ITS | Encounter Summary ---
Author Organization [employer] Address [address] [place] [address] [address] [place] [address] Care Team Providers Care Hawk Missile System Crewmember Name Role Phone Cindy Max JULIEN Primary Care Provider [phone] Encounter Details Date Type Department Care Team (Latest Contact Info) Description 07/22/2025 Travel Social History Tobacco Use Types Packs/Day [...] Description 07/30/2025 10:00 AM EST Procedure Visit [facility] MED & PEDS [address] [place] [address] Karoline Pedraza MD [address] [place] [address] documented as of this encounter Visit Diagnoses Not on filedocumented in this encounter Additional Health Concerns Assessment Noted Time PHQ-9 Depression Total Score: 1 03/25/20 25 3:13 PM EDT documented as of this encounter Care Teams [employer] Crewmember Relationship Specialty Start Date End Date Cindy Max FNP [address] [place] [address] PCP - General Family Medicine 05/09/22 documented as of this encounter
--- OUTSIDE RECORDS SUMMARY | 2025-07-22 11:42 | XMS_ITS | Encounter Summary ---
Author Organization [employer] Address [address] [place] [address] 7 [place] [address] Care Team Providers Care Tree Warden Name Role Phone Cindy Max Primary Care Provider [phone] Encounter Details Date Type Department Care Team ([facility] Contact Info) Description 03/29/2025 Orders Only [facility] CH[facility] MED & PEDS [address] [place], [place] [phone] Cindy Max FNP [address] [place] [address] Obesity (BMI 30-39.9) Social History Tobacco Use [...] Upcoming Encounters Date Type Department Care Team ([facility] st Contact Info) Description 07/30/2025 10:00 AM EST Procedure Visit [facility] MED & PEDS [address] [place] [address] Karoline Pedraza MD [address] [place] [address] documented as of this encounter Visit Diagnoses Diagnosis Obesity (BMI 30-39.9) documented in this encounter Additional Health Concerns Assessment Noted Time PHQ-9 Depression Total Score: 1 03/25/20 25 3:13 PM EDT documented as of this encounter Care Teams Tree Warden Relationship Specialty Start Date End Date Cindy Max FNP [address] [place] [address] PCP - General Family Medicine 05/09/22 documented as of this encounter
--- OUTSIDE RECORDS SUMMARY | 2025-07-22 11:42 | XMS_ITS | Encounter Summary ---
Author Organization [employer] Address [address] [place] [address] Care Team Providers Care Sales Representative [employer] Name Role Phone Cindy Max Primary Care Provider [phone] Reason for Visit * Reason Onset Date Comments Med Refill 04/25/2025 Encounter Details Date Type Department Care Team ([facility] Contact Info) Description 04/25/[address] [facility] MED & PEDS [address] [place], [place] [phone] Cindy Max FNP [address] [place], [place] [phone] Med Refill Social History Tobacco Use Types [...] 1:15 PM EDT Medication was sent to [facility] on 03/29/25 with 2 refills. * Telephone Encounter - Michelle Crouch - 04/25/2025 1:11 PM EDT TC from pt requesting medication refill. Medications needing refill : Tirzepatide 2.5 MG/0.5ML solution auto-injector To be sent to: [facility] documented in this encounter Plan of Treatment Upcoming Encounters Date Type Department Care Team (Late st Contact Info) Description 07/30/2025 10:00 AM EST Procedure Visit [facility] MED & PEDS [address] [place] [address] Karoline Pedraza MD [address] [place] [address] documented as of this encounter Visit Diagnoses Not on filedocumented in this encounter Additional Health Concerns Assessment Noted Time PHQ-9 Depression Total Score: 1 03/25/20 25 3:13 PM EDT documented as of this encounter Care Teams Sales Representative [employer] Relationship Specialty Start Date End Date Cindy Max FNP [address] [place] [address] PCP - General Family Medicine 05/09/22 documented as of this encounter
--- OUTSIDE RECORDS SUMMARY | 2025-07-22 11:43 | XMS_ITS | Clinical Summary ---
Author Organization [facility] it Address [address] [place] [address] Care Team Providers Care Application Integration Architect Name Role Phone Unavailable Primary Care Provider [...] Depression Screening 09/12/2024 COVID-19 Vaccine (1 - 2024-2 6 season) 2025 Influenza Vaccine (#1) 2025 RSV [...]
--- OUTSIDE RECORDS SUMMARY | 2025-07-22 11:43 | XMS_ITS | Clinical Summary ---
Author Organization [employer] Address [address] [place] [address] 7 [place] [address] Care Team Providers Care Autocad Name Role Phone MargretdiaJhonnyle JULIEN Primary Care Provider [phone] Allergies No known active allergies Medications * This document contains information received from the source organization and may not represent a complete record from that organization. guaiFENesin (Mucinex) 600 MG 12 hr tablet Take 1 tablet by mouth every 12 (twelve) hours. 2 Active sodium chloride (Yalobusha) 0.65 % nasal spray 1-2 spray on [...] Active Problems Problem Noted Date Diagnosed Date Complex renal cyst 07/22/2025 Assessment & Plan (07/22/2025 6:27 AM EST): - US renal in Jun 2025 demonstrated 1.6 x 1.3 x 1.4 cm complex cyst in the lower pole of the left kidney. - Following with [facility] Urology - LAISHA Mcguire, with plan for MRI renal mass protocol ordered Jun 2025. Transaminitis 03/26/2025 Overview (03/26/2025): Lab Results Component [...] an impaired relaxation filling pattern. 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 Diverticulosis 12/22/2023 Overview (12/22/2023): Noted on CT abd/pelvis May 2023 Degenerative disc disease, lumbar 12/22/2023 Overview (10/08/2024): DDD of lumbar region noted as incidental finding on CT abd/pelvis ordered May 2023 by [facility] Urology Lumbar XR March 2024: Qammbjzr-om-ninajq degenerative disc disease and facet arthropathy at L5-S1. Completed physical therapy with improvement in symptoms in 2023 Followed by [facility] Obstructive sleep apnea 12/22/2023 Overview (10/08/2024): 08/12/23: [facility] Home Sleep study report. Diagnosed with MARILU, with recommendation for pt to return for an in lab sleep study with CPAP/BiPAP and transcutaneous CO2 monitoring. 01/26/24: Hospital sleep study at [facility]. Titration study. Diagnosed with Severe MARILU. Pt to be started on CPAP 8 cm of H20 with heated humidifier DME request 02/03/24 Re-request sent on 10/08/24 with new insurance Assessment & Plan (03/30/2024 7:42 AM EDT): Insurance requesting further information. Plan to refax DME request with additional information for approval. Benign paroxysmal positional vertigo due to bilateral vestibular disorder 12/22/2023 Overview (12/22/2023): [place]-Hall[place] positive on exam 12/19/23 Discussed tx options, [...] D lab Routine health maintenance 11/19/2022 Overview (07/22/2025): Optometry: referred to [facility] Eye Care 10/05/24 Dental: discuss at follow up BMD: starting at 67 y/o Routine Cancer Screening Mammo: BIRADS 2 on 05/17/25 Cervical CA: ASCUS HPV neg Sep 2022, [...] Overview (11/07/2022): -EMG confirmed 2021 -Referred to [facility] Ortho 11/05/22 Atypical chest pain 08/17/2022 Subdural [...] mucosa; negative for dysplasia. Cont following with [facility] YARN EXAMINER Hyperlipidemia 07/09/2021 Overview (03/26/2025): -ASCVD risk: 2.2% [...] Primary hypertension 06/30/2021 Overview (03/26/2025): -Following with [facility]. -BP Goal [...] Bilateral nephrolithiasis 06/30/2021 Overview (12/22/2023): Following with [facility] Urology - JULIEN Mcguire History of passing approx 4 kidney stones over lifetime, with first one starting at 14y/o Encouraged adequate hydration 12/12/23: Renal US BL ordered by Ruthie VICTORIA. Impression - bilateral nephrolithiasis, borderline mild left hydronephrosis. (Kidney stones 2mm in diameter) Assessment & Plan (07/22/2025 6:28 AM EST): - Good hydration - Vit B6 through Urology - Rec 1 oz lemon juice in water daily ([facility] Urology) Assessment & Plan (03/26/2025 2:34 PM EDT): [...] Encounters Date Type Department Care Team Description 07/22/2025 9:00 AM EST Office Visit [facility] CH[facility] MED & PEDS [address] [place] [address] Cindy Max FNP Obesity (BMI 30-39.9) (Primary Dx); Routine health maintenance; Complex renal cyst; Bilateral nephrolithiasis; Encounter for immunization; Transaminitis; H/O breast surgery 07/22/2025 Travel 07/12/2025 Patient Outreach [facility] MEDICINE [address] [place], [place] [phone] Cindy Max FNP Pre-visit Planning (SDOH screening completed on 09/26/24) 07/09/2025 Orders Only GENERIC EXTERNAL DATA DEPARTMENT Provider, Generic External Data 06/18/2025 Orders Only [facility] External Provider, [facility] 06/04/2025 Refill [facility] MED [facility] PEDS [address] [place] [address] Cindy Max FNP Hypertension, unspecified type 05/07/2025 Telephone [facility] MED & PEDS [address] [place] [address] Karoline Pedraza MD No Show 05/06/2025 Orders Only [facility] MED [facility] PEDS [address] [place] [address] Cindy Max FNP 05/03/2025 Telephone [facility] MED & PEDS [address] [place] [address] Cindy Max FNP Prior Authorization 04/25/2025 Telephone [facility] MED & PEDS [address] [place] [address] Cindy Max FNP Med Refill from Last 3 Months Immunizations Immunization Administration Dates Next Due Influenza injectable quadrivalent preservative f ree 06/30/2021 Influenza, seasonal, injectable, preservative fr ee 07/22/2025 Pfizer Covid-19 Vaccine 12+ 03/11/2021, Tdap 06/30/2021 [...] 18 07/22/2025 9:05 AM EST Oxygen Saturation 98% 03/26/2024 1:44 PM EDT Inhaled Oxygen Concentration - - Weight 70.3 kg (155 lb) 07/22/2025 9:05 AM EST Height 147.3 cm (4' 10 ) 07/22/2025 9:05 AM EST Body Mass Index 32.4 07/22/2025 9:05 AM EST Plan of Treatment Upcoming Encounters Date Type Department Care Team (Late st Contact Info) Description 07/30/2025 10:00 AM EST Procedure Visit [facility] MED [facility] PEDS [address] [place] [address] Karoline Pderaza MD [address] [place] [address] Health Maintenance Due Date Last Done Comments [...] Additional history exists SDOH Screening 09/26/2025 09/26/2024 Diabetes: Hemoglobin A1C 10/11/2025 025, 06/08/2023, 11/08/2022, Additional history exists FOBT 11/16/2025 11/16/2024 Alcohol/Substance Use Screening 03/25/2026 03/25/2025 Depression Screening 03/25/2026 03/25/2025, 03/25/20 25 Disability Screening 03/25/2026 03/25/2025 Mammogram 05/17/2026 05/09/2025, 09/10/2021 COVID-19 Vaccine ( season) 2026 03/11/2021, 02/18/2021 Postponed from 05/13/2025 (Patient Refused) Tobacco Screening 07/22/2026 07/22/2025 Colorectal Cancer Screening 11/17/2027 FIT DNA/Cologuard 11/17/2027 11/16/2024 Lipid Panel 10/11/2029 10/11/2024, 05/14, 11/08/2022, Additional history exists DTaP/Tdap/Td Vaccines (2 - Td or Tdap) 06/30/2031 06/30/2021 RSV Patients and Patients Aged 60 years or older (1 - 1-dose 75+ series) 11/19/2047 HIV Screening Completed 11/08/2022, 06/30/2021 Hepatitis C Screening Completed 11/08/2022, 021 Zoster Vaccines Completed 02/01/2023, 11/24/2022 Influenza Vaccine Completed 07/22/2025, 06/30/2021 HIB Vaccines Aged Out No longer eligi [...] Procedure Name Priority Date/Time Associated Diagnosis Comments CYTOPATH-CELL ENHANCED Routine 8:15 AM EDT US RENAL COMPLETE Routine 06/18/2025 8:0 7 [...] Recently Relevant to Health Maintenance Results * Cytopath-cell enhanced (07/09/2025 8:15 AM EDT) 07/09/2025 8:15 AM EDT 07/10/2025 11:00 AM EDT [facility] LABS - 07/11/2025 10:04 AM EDT ----- ------- Name: Tk CoolNazia Age/Sex: 54/F : 1970 Unit#: [id number] Attend Dr: Ruthie Mcguire [facility]- Re07/09/25 Status: [facility] Disch: ----- ------- SPEC : [id number] RECD: 07/10/25 STATUS: YUDY HEAD NUM: [id number] EDILMA: 07/09/[address] [facility] [address]: Ruthie McguireP- ENTERED: 07/10/25-114 SP TYPE: Cytology OT DR: Cindy Max ORDERED: Cyto-enhanced Diagnosis Urine: Negative for high-grade urothelial carcinoma. Comment: Examination of a monolayer preparation slide shows many benign squamous cells, few benign urothelial cells, crystals, few inflammatory cells and rare red blood cells. Clinical History Other microscopic hematuria Material Received Urine Gross Description Received is 15 cc of cloudy yellow fluid from which a ThinPrep slide is prepared. IHC S/NG Disclaimer NOTE: Unless otherwise stated, all tissue is formalin-fixed and paraffin-embedded. Some or all of the immunohistochemical tests reported herein may have been developed and their performance characteristics determined by [facility]. They have not been cleared or approved by the U.S. Food and Drug Administration (FDA). However, the FDA has determined that such clearance or approval is not necessary. This laboratory is certified under the Clinical Laboratory Improvement Amendments of 1988 (CLIA) as qualified to perform high complexity clinical laboratory testing. Copies To: Ruthie Mcguire [facility] [address] [place] [address] Dr. Kulk[address]i [address] [place] [address] [email or web address] Cindy Max RADIOGRAPHIC TECHNOLOGIST [address] [phone] CONTINUED ON NEXT PAGE ----- ------- Name: Nazia Corona Age/Sex: 54/F : 1970 Unit#: [id number] Attend Dr: Ruthie Mcguire [facility] Re07/09/25 Status: DEP [facility] Disch: ----- ------- SPEC : [id number] RECD: 07/10/25 STATUS: YUDY HEAD NUM: [id number] EDILMA: 07/09/[address] [facility] [address]: Ruthie Mcguire [facility] ENTERED: 07/10/25114 SP TYPE: Cytology OTHR DR: Cindy Max ORDERED: Cyto-enhanced ----- ------- Signed (signature on file) Urszula Kirby 07/11/25 1004 ----- ------- END OF REPORT us Generic External Data Provider LAB CYTOLOGY CHARI [place] Final Result Performing Organization Address City/State/[facility] Co de Phone Number [facility] [address] [place], [place] [phone] * US Renal Complete (06/18/2025 8:07 AM EDT) Anatomical Region Laterality Modality Kidney Ultrasound 06/18/2025 8:07 AM EDT Narrative 06/18/2025 8:38 AM EDT [address] [address] Ultrasound Report Signed Patient: Nazia Corona MR# : [id number] : 1970 Acct:[id number] Age/Sex: 54 / F ADM Date: 06/18/25 Loc: . Attending Dr: Cindy VICTORIA Ordering Physician: Ruthie Mcguire Date of Service: 06/18/25 Procedure(s): US renal BI Accession Number(s): [id number] cc: Ruthie Mcguire; Cindy Max Reason for Exam: KIDNEY STONES [...] signed by Blanca López MD in OV> 06/18/25 0836 DD/ 0807 TD/TT: 06/18/25 0818 Optometric Aide: BRIONNA Procedure Note Donotuseinterpreter, Image - 06/18/2025 [place] [address] Ultrasound Report Signed Patient: Nazia CoronaMR# : [id number] : 1970Acct:[id number] Age/Sex: 54 / FADM Date: 06/18/25 Loc: HO.US Attending Dr: Cindy VICTORIA Ordering Physician: Ruthie Mcguire Date of Service: 06/18/25 Procedure(s): US renal BI Accession Number(s): [id number] cc: Ruthie Mcguire-TAINA; Phalen,Cindy RADIOGRAPHIC TECHNOLOGIST Reason for Exam: KIDNEY STONES EXAMINATION: US [...] signed by Blanca López MD in OV> 06/18/25 0836 DD/ 0807 TD/TT: 06/18/25 0818 Optometric Aide: BRIONNA us [facility] External Provider IMG US PROCEDURES Final Result * BI Mammogram Diagnostic Tomosynthesis added left (05/17/2025 1:00 PM EDT) Anatomical Region Laterality Modality Breast Left Mammography 05/17/2025 1:00 PM EDT Narrative 05/17/2025 4:18 PM EDT [facility] [address] [place], [place] [address] Mammography Report Signed Patient: Nazia Corona MR# : [id number] : 1970 Acct:[id number] Age/Sex: 54 / F ADM Date: 05/17/25 Loc: HO.MAMMO Attending Dr: Cindy Max RADIOGRAPHIC TECHNOLOGIST Ordering Physician: Cindy Max RADIOGRAPHIC TECHNOLOGIST Results: 2Benig n Findings Date of Service: 05/17/25 Follow Up: 1 Year From Orig inal Mammogram Procedure(s): MM tomosynthesis added views L Accession Number(s): [id number] cc: Cindy Max RADIOGRAPHIC TECHNOLOGIST EXAMINATION(S): 1. MM DIAGNOSTIC DIGITAL BREAST TOMOSYNTHESIS, [...] 05/17/25 1615 DD/ 1300 TD/TT: 05/17/25 1315 Optometric Aide: Procedure Note Donotuseinterpreter, Image - 05/17/2025 [facility] [address] [place], [place] [address] Mammography Report Signed Patient: Nazia Corona# : [id number] : 1970Acct:[id number] Age/Sex: 54 / FADM Date: 05/17/25 Loc: HO.MAMMO Attending Dr: Cindy Max RADIOGRAPHIC TECHNOLOGIST Ordering Physician: Cindy Max FNPResults: 2Benig n Findings Date of Service: 05/17/25Follow Up: 1 Year From Orig inal Mammogram Procedure(s): MM tomosynthesis added views L Accession Number(s): [id number] cc: Cindy Max RADIOGRAPHIC TECHNOLOGIST EXAMINATION(S): 1. MM DIAGNOSTIC DIGITAL BREAST TOMOSYNTHESIS, [...] 05/17/25 1615 DD/ 1300 TD/TT: 05/17/25 1315 Optometric Aide: Cindy VICTORIA IMG BI PROCEDURES Final Result * BI Mammogram Screening Tomosynthesis Bilateral (05/09/2025 12:06 PM EDT) Anatomical Region Laterality Modality Breast Bilateral Mammography 05/09/2025 12:0 6 PM EDT Narrative 05/11/2025 6:15 PM EDT [facility] [address] [place] [address] Mammography Report Signed Patient: Nazia Corona MR# : [id number] : 1970 Acct:[id number] Age/Sex: 54 / F ADM Date: 05/09/25 Loc: HO.MAMMO Attending Dr: Cindy VICTORIA Ordering Physician: Cindy Max Results: 0Incom plete: Needs Additional Imaging Evaluation Date of Service: 05/09/25 Follow Up: Additional Imagi ng Procedure(s): MM tomosynthesis screening BI Accession Number(s): [id number] cc: Cindy Max EXAMINATION: MM SCREENING DIGITAL [...] 05/11/25 1812 DD/ 1206 TD/TT: 05/09/25 1231 Optometric Aide: Procedure Note Donotuseinterpreter, Image - 05/11/20[facility] [address] [place], [place] [address] Mammography Report Signed Patient: Nazia Corona# : [id number] : 1970Acct:[id number] Age/Sex: 54 / FADM Date: 05/09/25 Loc: GEOFFREY.MAMMO Attending Dr: Cindy Max RADIOGRAPHIC TECHNOLOGIST Ordering Physician: Cindy MaxPResults: 0Incom plete: Needs Additional Imaging Evaluation Date of Service: 05/09/25Follow Up: Additional Imagi ng Procedure(s): MM tomosynthesis screening BI Accession Number(s): [id number] cc: Cindy Max EXAMINATION: MM SCREENING DIGITAL [...] 05/11/25 1812 DD/ 1206 TD/TT: 05/09/25 1231 Optometric Aide: Cindy Max RADIOGRAPHIC TECHNOLOGIST IMG BI PROCEDURES Final Result * Cologuard?? colon cancer screening (11/16/2024 8:08 AM EST) Cologuard Result Negative Negative 11/22/19 4:29 AM EDT [employer] (CLIA #:[id number]) Comment: NEGATIVE TEST RESULT. A negative Cologuard [...] Todd et al, N Engl J Med 2014;370(14):1423-9836) The normal value (reference range) for this assay is negative. COLOGUARD RE-SCREENING RECOMMENDATION: Periodic colorectal cancer screening is an important part of preventive healthcare for asymptomatic individuals at average risk for colorectal cancer. Following a negative Cologuard result, the [place] [employer] and U.S. Multi-Society Task Force screening guidelines recommend a Cologuard re-screening interval of 3 years. References: [place] [employer] Guideline for Colorectal Cancer Screening: https://www.cancer.org/cancer/gsjpa-enoxka-knpnbk/yuugajlvb-zaiwdevkj-bbrpdij/ac s-rec ommendations.html.; Regis DK, John OLIVAREZ, Ronan VictorK, Colorectal Cancer Screening: Recommendations for Physicians and Patients from the U.S. Multi-Society Task Force on Colorectal Cancer Screening , Am J Gastroenterology 2017; 112:4689-6627. TEST DESCRIPTION: Composite algorithmic analysis of stool [...] (Lorrie Lockett al, N Engl J Med 2014;370(14):4842-6278.) Cologuard may produce a false negative or false positive result (no colorectal cancer or precancerous polyp present at colonoscopy follow up). A negative Cologuard test result does not guarantee the absence of CRC or advanced adenoma (pre-cancer). The current Cologuard screening interval is every 3 years. ([place] [employer] Society and U.S. Multi-Society Task Force). Cologuard performance data in a 10,000 patient pivotal study using colonoscopy as the reference method can be accessed at the following location: www.[employer]ine/results. Additional description of the Cologuard test process, warnings and precautions can be found at www.[employer]. Stool specimen (specimen) Rectal contents / Unknown 11/16/2024 8:08 AM EST 11/17/2024 3:34 PM EST Cindy Max [facility] LAB MOLECULAR DIAGNOSTICS CHARI [place] Final Result [employer] (CLIA #:[id number]) [address] [place] [address], * Hemoglobin A1c (10/11/2024 8:17 AM EST) Hemoglobin A1c 5.6 <6.0 % [facility] Comment:Hemoglobin A1C Refer ence Range Adults: 4.8 - 6.0 % Non diabetic: < 6.0 % Goal: < 7.0 %Additional Action Suggested: > 8.0 %Note: Hemoglobin A1c results are invalid for patients with abnormal amounts of HbF. Blood transfusions may impact the HbA1c concentration in the patient sample. Estimated Average Glucose 114 mg/dL [facility] Comment:eAG = Estimated ave rage glucose which is %A1C expressed asaverage glucose, using the formula of the E3A-IljymhpPwrluaz Glucose study (ADAG), Diabetes Care, Vol.31,#8,Apr. 2007 Blood Venous blood specimen / Unknown 10/11/2024 8:17 AM EST 10/11/2024 1:58 PM EST Cindy Max [facility] LAB BLOOD ORDERABLES Final Res ult Performing Organization Address [facility] Co de Phone Number [facility] [address] [place] [phone] * (ABNORMAL) Lipid Panel, Standard (10/11/2024 8:17 AM EST) Triglycerides 146 <150 mg/dL [facility] Comment:Desirable Triglyceri de: less than 150 mg/dLBorderline High Triglyceride 150-199 mg/dLHigh Triglyceride: 200-499 mg/dLVery High Triglyceride: greater than or equal to 5OO mg/dL Cholesterol 227(H) <200 mg/dL [facility] Comment:Desirable Cholestero l: less than 200 mg/dLBorderline High Cholesterol: 200-239 mg/dLHigh Cholesterol: greater than 239 mg/dL LDL Cholesterol Calculated 147(H) <100 mg/dL [facility] Comment:Desirable LDL: less than 100 mg/dLNear Optimal/Above Optimal LDL: 110- 129 mg/dLBorderline High LDL: 130-159 mg/dLHigh LDL: 160-189 mg/dLVery High LDL: greater than or equal to 190 mg/dL HDL Cholesterol 51 >40 mg/dL [facility] Comment:Desirable HDL: great er than 40 mg/dL Note: This HDL assay may give artificially low results in patients with liver disease. Blood Venous blood specimen / Unknown 10/11/2024 8:17 AM EST 10/11/2024 2:01 PM EST Cindy Max [facility] LAB BLOOD ORDERABLES Final Res ult Performing Organization Address [facility]/ZIP Co de Phone Number [facility] [address] [place] [address] [phone] * (ABNORMAL) HPV mRNA E6/E7 w/Reflex to HPV Genotypes 16, 18/45 (09/20/2023 3:09 PM EST) HPV nRNA E6/E7 Detected(A ) Not Detected [facility] Comment:Methodology: Transcr iption-Mediated AmplificationThis assay detects E6/E7 viral messenger RNA (mRNA) from 14high-risk HPV types (16,18,31,33,35,39,45,51,52,56,58,59,66,68).Cervical sources are required for HPV testing.If a vaginal source from a patient who has had atotal hysterectomy with removal of cervix wassubmitted, please contact the testing laboratoryfor alternative testing options.For additional information, please refer tohttp://education.[employer]/faq/DWR559r4(This link if provided for information/educational purposes only.)THIS TEST WAS PERFORMED AT:[employer] [address] [id number] STEWART MD HPV 16 RNA NOT DETECTED NOT DETECTED [facility] HPV 18/45 RNA NOT DETECTED NOT DETECTED [facility] Comment:Methodology: Transcr iption Mediated AmplificationCervical sources are required for HPV testing.If a vaginal source from a patient who has had atotal hysterectomy with removal of cervix wassubmitted, please contact the testing laboratoryfor alternative testing options.THIS TEST WAS PERFORMED AT:[employer] [place] [id number] STEWART MD 09/20/2023 3:09 PM EST 09/21/2023 10:22 AM EST us Helen MANZO LAB CYTOLOGY ORDERABLES F inal Result [facility] [address] [place] [phone] * Pap Smear (09/20/2023 3:09 PM EST) Swab Cervix uteri structure / Unknown 09/20/2023 3:09 PM EST 09/21/2023 10:22 AM EST Narrative [facility] - 09/29/2023 8:40 AM EST ----- ------- Name: Tk Jai Bowman,Dulce Age/Sex: 52/F : 1970 Unit#: [id number] Attend Dr: Re09/20/23 Status: PRE REF Location: [facility] Disch: ----- ------- SPEC : [id number] RECD: 09/21/23-1022 STATUS: MORMarlon ADILENE NUM: [id number] EDILMA: 09/20/23-[address] [facility] [address]: HELEN ELLIS [facility] ENTERED: 09/21/23-1355 SP TYPE: Pap Smr OT DR: ORDERED: [...] RNA: Not Detected HPV testing performed by [facility], [place], [place]. See reference laboratory portion of the EMR for entire report. Clinical Information LMP: Postmenopausal Previous PAP test: 09/2022, ASCUS HPV- Other history: Hx of NIL/HPV pos Material Received ThinPrep-Cervical ----- ------- Signed (signature on file) Felix Carmona MD 09/29/23 0840 ----- ------- END OF REPORT Helen Ellis [facility] LAB CYTOLOGY ORDERABLES F inal Result [facility] [address] [place] [phone] * HIV-1 RNA, Quantitative, Real-Time PCR with Reflex to Genotype (RTI, PI, Integrase) (11/08/2022 8:39 AM EST) [facility] HIV 1 RNA, QN PCR NOT DETECTED copies/mL [facility], HIV 1 RNA, QN PCR NOT DETECTED Log copies/mL [facility], Comment: REFERENCE RANGE: NOT DETECTED copies/mL NOT DETECTED Log copies/mL This test was performed using Real-Time Polymerase Chain Reaction. Reportable range is 20 to 10,000,000 copies/mL (1.30-7.00 Log copies/mL). 11/08/2022 8:39 AM EST 11/08/2022 8:39 AM EST Narrative [facility] - 11/11/2022 12:22 AM EST FASTING:YES FASTING: YES Cindy Max RADIOGRAPHIC TECHNOLOGIST LAB BLOOD ORDERABLES Final Res ult Performing Organization Address [facility] Co de Phone Number [facility] [address] [place] [address], [facility] [place] [phone] [facility], [address] [place] [address] * Hepatitis C Antibody with Reflex to HCV, RNA, Quantitative, Real-Time PCR (11/08/2022 8:39 AM EST) Hepatitis C Antibody NON-REACT SHIRLEY NON-REACT SHIRLEY [employer] Index 0.06 <1.00 [employer] Comment: HCV antibody was non-reactive. There is no laboratory evidence of HCV infection. In most cases, no further action is required. However, if recent HCV exposure is suspected, a test for HCV RNA (test code 87495) is suggested. For additional information please refer to http://education.[employer]/faq/RVB65v1 (This link is being provided for informational/ educational purposes only.) Blood Venous blood specimen / Unknown 11/08/2022 8:39 AM EST 11/08/2022 8:39 AM EST Narrative [facility] - 11/11/2022 12:22 AM EST FASTING:YES FASTING: YES Cindy Max RADIOGRAPHIC TECHNOLOGIST LAB BLOOD ORDERABLES Final Res ult Performing Organization Address [facility] Co de Phone Number [facility] [address] [place] [address], [place] [address] [employer] [address] [place] [address], ([address]) [place] [address] from Last 3 Months or Most Recently Relevant to Health Maintenance Insurance [employer] 3 DENTAL - HSN PARTIAL (MEDICAID) Care Teams [employer] Relationship Specialty Start Date End Date Cindy Max FNP [address] [place] [id number] PCP - General Family Medicine 05/09/22
[2025-07-22 15:04] LABS: Alanine Aminotransferase 70 U/L (0-31); Albumin Level 4.5 g/dL (3.5-5.0); Alkaline Phosphatase 113 U/L (39-117); Aspartate Amino Transferase 57 U/L (5-31); Cholesterol 206 mg/dL (<200); HDL Cholesterol 54 mg/dL (>40); Total Protein 7.5 g/dL (6.5-8.0); Triglycerides 155 mg/dL (<150)
== END 2025-07-22 10:04 | disposition home or self-care (01) ==
LOC: HO.CHCLDS 10:03
PROVIDERS: Visit Provider Registered Nurse
DX: R74.01 Elevation of levels of liver transaminase levels (principal)
CPT/HCPCS: 36415; 80061; 80076

== ENCOUNTER 2025-07-30 10:34 | Outpatient (REF) | payer OTHER, SELFPAY | END 2025-07-30 10:35 | disposition home or self-care (01) | LOC: HO.HHCLNP 10:34 | DX: Z12.4 Encounter for screening for malignant neoplasm of cervix (principal); Z11.51 Encounter for screening for human papillomavirus (HPV) | CPT/HCPCS: 87626; 88175 ==